=== PATIENT | female | born 1970 | race Caucasian/White ===

== ENCOUNTER 2017-03-07 07:53 | Emergency (ER) | payer OTHER ==
[~2017-03-07] VITALS: Ht 165.1 cm; Wt 93.0 kg
[~2017-03-07 07:53] MED LIST: CYCL10TA2 PO; IBUP-1060 PO; METO25TA4 PO
[2017-03-07 08:11] VITALS: BP 128/74
[2017-03-07] MEDS ORDERED: BENZ100C PO (08:18)
[2017-03-07] MEDS ORDERED: AZIT250T6 PO (08:18)
[2017-03-07] MEDS ORDERED: PROAIR HFA8.5 GM INH (08:18)
[2017-03-07] MEDS ORDERED: PRED20TA PO (08:18)
--- NOTE | 2017-03-07 08:18 | PHYS DOC ---
Past Medical History Past Medical History: Cancer, High Cholesterol, Hypertension, Other Additional Past Medical Histor: chronic back pain, bulging discs, cervical cancer Past Surgical History: Other Additional Past Surgical Histo: D&C, left breast cyst removed Alcohol Use: None Drug Use: None Adult General Chief Complaint Chief Complaint: COUGH HPI HPI Patient is a 46 year old female presents to the ED complaining of cough x 4 days. Describes as dry cough. States she started out with a sore throat and congestion. Patient is a pack a day smoker. Describes her pain as sharp. Rates her pain as 6/10. Denies chest pain, shortness of breath, dizziness, weakness, n /v, abdominal pain, headache or fever. Review of Systems Review of Systems Constitutional: Complains of subjective fever. Denies chills [] Eyes: Denies change in visual acuity, redness, or eye pain [] HENT: Complains of nasal congestion and sore throat. [] Respiratory: Complains of cough. Denies shortness of breath [] Cardiovascular: No additional information not addressed in HPI [] GI: Denies abdominal pain, nausea, vomiting, bloody stools or diarrhea [] : Denies dysuria or hematuria [] Musculoskeletal: Denies back pain or joint pain [] Integument: Denies rash or skin lesions [] Neurologic: Denies headache, focal weakness or sensory changes [] Endocrine: Denies polyuria or polydipsia [] All other systems were reviewed and found to be within normal limits, except as documented in this note. Allergies Allergies Allergies Coded Allergies Type Severity Reaction Last Updated Verified No Known Drug Allergies 03/28/14 No Physical Exam Physical Exam Constitutional: Well developed, well nourished, no acute distress, non-toxic appearance. [] HENT: Normocephalic, atraumatic, bilateral external ears normal, MILD PHARYNGEAL ERYTHEMA. oropharynx moist, no oral exudates, nose normal. [] Eyes: PERRLA, EOMI, conjunctiva normal, no discharge. [] Neck: Normal range of motion, no tenderness, supple, no stridor. [] Cardiovascular:Heart rate regular rhythm, no murmur [] Lungs & Thorax: DRY COUGH. Bilateral breath sounds clear to auscultation [] Abdomen: Bowel sounds normal, soft, no tenderness, no masses, no pulsatile masses. [] Skin: Warm, dry, no erythema, no rash. [] Back: No tenderness, no CVA tenderness. [] Extremities: No tenderness, no cyanosis, no clubbing, ROM intact, no edema. [] Neurologic: Alert and oriented X 3, normal motor function, normal sensory function, no focal deficits noted. [] Psychologic: Affect normal, judgement normal, mood normal. [] Current Patient Data Vital Signs Vital Signs Date Time Temp Pulse Resp B/P (MAP) Pulse Ox O2 Delivery O2 Flow Rate FiO2 03/07/17 08:11 98.3 74 18 98 Room Air 98.3 EKG EKG [] Radiology/Procedures Radiology/Procedures [] Course & Med Decision Making Course & Med Decision Making Pertinent Labs and Imaging studies reviewed. (See chart for details) [] Dragon Disclaimer Dragon Disclaimer This electronic medical record was generated, in whole or in part, using a voice recognition dictation system. Departure Departure Impression: Primary Impression: Cough Additional Impression: Upper respiratory infection Disposition: HOME, SELF-CARE Condition: IMPROVED Referrals: NO PCP (PCP) SHONDA LARSON MD Patient Instructions: Acute Bronchitis Scripts Benzonatate (TESSALON PERLE) 100 Mg Capsule 1 CAP PO TID, #21 CAP Prov: RUPA WILKINS 03/07/17 Albuterol Sulfate (PROAIR HFA INHALER) 8.5 Gm Hfa.aer.ad 1 PUFF INH PRN Q6HRS Y for SHORTNESS OF BREATH, #1 INHALER 0 Refills Prov: RUPA WILKINS 03/07/17 Prednisone (PREDNISONE) 20 Mg Tablet 2 TAB PO DAILY, #10 TAB Prov: RUPA WILKINS 03/07/17 Azithromycin (AZITHROMYCIN TABLET) 250 Mg Tablet 1 PKG PO UD, #6 TAB Prov: RUPA WILKINS 03/07/17 Problem Qualifiers RUPA WILKINS Mar 07, 2017 08:18
== END 2017-03-07 08:25 | disposition home or self-care (01) ==
LOC: ER 07:53
DX: J06.9 Acute upper respiratory infection, unspecified (principal); E78.00 Pure hypercholesterolemia, unspecified; I10 Essential (primary) hypertension; G89.29 Other chronic pain; F17.210 Nicotine dependence, cigarettes, uncomplicated
CPT/HCPCS: 99283

== ENCOUNTER → 2017-09-07 | Outpatient (CLI) | payer OTHER | END | disposition home or self-care (01) | LOC: KCIC 10:23 | DX: N20.1 Calculus of ureter (principal) | CPT/HCPCS: 74018 ==

== ENCOUNTER 2017-11-03 09:40 | Emergency (ER) | payer OTHER ==
[2017-11-03 09:54] LABS: URINE HCG POC HCG NEGATIVE (Negative)
[2017-11-03 10:10] LABS: ADD MAN DIFF? NO
[2017-11-03 10:15] LABS: BILIRUBIN,URINE NEGATIVE (NEG); CLARITY,URINE CLEAR; COLOR,URINE YELLOW; GLUCOSE,URINE NEGATIVE (NEG); NITRITE,URINE NEGATIVE (NEG); PROTEIN,URINE NEGATIVE (NEG-TRACE); UROBILINOGEN,URINE 0.2 mg/dL (0.2 mg/dL)
[2017-11-03] MEDS: fentaNYL PF VIAL 100 MCG/2 ML VIAL IV (10:17)
[2017-11-03] MEDS: ONDANSETRON PF 4 MG/2 ML VIAL. IV (10:18)
[2017-11-03] MEDS: IV NORMAL SALINE 1000ML BAG 1,000 ML IV (10:19)
[2017-11-03 10:26] LABS: ANION GAP 10 (6-14); BLOOD UREA NITROGEN 11 mg/dL (7-20); BUN/CREATININE RATIO 12 (6-20); CALCIUM 9.8 mg/dL (8.5-10.1); CARBON DIOXIDE 25 mmol/L (21-32); CHLORIDE 101 mmol/L (98-107); CREATININE 0.9 mg/dL (0.6-1.0); GFR 67.4; GLUCOSE 153 mg/dL (70-99); POTASSIUM 3.6 mmol/L (3.5-5.1); SODIUM 136 mmol/L (136-145)
[2017-11-03 10:32] LABS: ALBUMIN 3.8 g/dL (3.4-5.0); ALBUMIN/GLOBULIN RATIO 1.1 (1.0-1.7); ALK PHOS 95 U/L (46-116); ALT (SGPT) 21 U/L (14-59); AST (SGOT) 14 U/L (15-37); TOTAL BILIRUBIN 0.3 mg/dL (0.2-1.0); TOTAL PROTEIN 7.4 g/dL (6.4-8.2)
[2017-11-03 10:36] LABS: BACTERIA,URINE FEW /HPF (0-FEW); SQUAMOUS EPITHELIAL CELL,UR FEW /LPF
[2017-11-03 10:46] LABS: BASO # 0.1 x10^3/uL (0.0-0.2); BASO % 1 % (0-3); EOS # 0.3 x10^3/uL (0.0-0.7); EOS % 3 % (0-3); HEMATOCRIT 40.6 % (36.0-47.0); HEMOGLOBIN 13.6 g/dL (12.0-15.5); LYMPH # 2.8 x10^3/uL (1.0-4.8); LYMPH % 36 % (24-48); MEAN CORPUSCULAR HEMOGLOBIN 28 pg (25-35); MEAN CORPUSCULAR HGB CONC 34 g/dL (31-37); MEAN CORPUSCULAR VOLUME 84 fL (79-100); MONO # 0.6 x10^3/uL (0.0-1.1); MONO % 8 % (0-9); NEUT # 4.1 x10^3uL (1.8-7.7); NEUT % 52 % (31-73); PLATELET COUNT 318 x10^3/uL (140-400); RED BLOOD COUNT 4.83 x10^6/uL (3.50-5.40); RED CELL DISTRIBUTION WIDTH 14.8 % (11.5-14.5); WHITE BLOOD COUNT 7.9 x10^3/uL (4.0-11.0)
== END 2017-11-03 12:40 | disposition home or self-care (01) ==
LOC: ER 09:40
DX: N20.0 Calculus of kidney (principal); F32.9 Major depressive disorder, single episode, unspecified; E78.00 Pure hypercholesterolemia, unspecified; I10 Essential (primary) hypertension; G89.29 Other chronic pain; Z98.890 Other specified postprocedural states; Z88.2 Allergy status to sulfonamides
CPT/HCPCS: 36415; 80053; 81001; 81025; 85025; 96365; 96375; 99284; J0690; J2405; J3010; J7030

== ENCOUNTER 2017-11-16 12:10 | Day surgery (SDC) | payer OTHER ==
[~2017-11-16 12:10] MED LIST changes: +AZIT250T6 PO; +BENZ100C PO; +CHOL500062 PO; +CIPR500T94 PO; +HYDROmorphone 2 MG/ML VIAL IV PRN; +IV RINGERS,LACTATED 1000ML 1,000 ML IV SCH; +LIDOCAINE 1% PF 2 ML VIAL. ID PRN; +LOVA20TA2 PO; +MORPHINE SULFATE 2 MG/ML VIAL. IV PRN; +ONDA4TAB7 PO; +ONDANSETRON PF 4 MG/2 ML VIAL. IV PRN; +PRED20TA PO; +PROAIR HFA8.5 GM INH; +PROCHLORPERAZINE 10 MG/2 ML VIAL. IV PRN; +fentaNYL PF VIAL 100 MCG/2 ML VIAL IV PRN
[2017-11-16] MEDS ORDERED: IOHEXOL 300 MG/ML 100ML VIAL. ONE (12:18)
[2017-11-16] MEDS ORDERED: HYDR-971 PO ×2 (12:43→15:20)
[2017-11-16] MEDS ORDERED: DULO60CA6 PO (12:44)
[2017-11-16 12:55] LABS: U PREG PATIENT NEGATIVE (NEG)
[2017-11-16] MEDS ORDERED: ceFAZolin 2GM PREMIX 2 GM/50 ML BAG IV ONE (13:00)
[2017-11-16] MEDS ORDERED: PROPOFOL 20 ML IV ONE (13:22)
[2017-11-16] MEDS ORDERED: LIDOCAINE 2% PF Vial for OR 5 ML VIAL. ONE (13:22)
[2017-11-16] MEDS ORDERED: DEXAMETHASONE SOD PHOS 20 MG/5 ML VIAL. ONE (13:22)
[2017-11-16] MEDS ORDERED: ONDANSETRON PF 4 MG/2 ML VIAL. ONE (13:22)
[2017-11-16] MEDS ORDERED: FAMOTIDINE 20 MG/2 ML VIAL ONE (13:22)
[2017-11-16] MEDS ORDERED: MIDAZOLAM HCL/PF 2 MG/2 ML VIAL. ONE (13:23)
[2017-11-16] MEDS ORDERED: fentaNYL PF VIAL 100 MCG/2 ML VIAL ONE (13:23)
[2017-11-16] MEDS ORDERED: SUCCINYLCHOLINE 200 MG/10 ML VIAL. ONE (13:50)
[2017-11-16] MEDS ORDERED: ePHEDrine PF IN SALINE 50 MG/5 ML DISP.SYRIN IV ONE (14:17)
[2017-11-16] MEDS ORDERED: SEVOFLURANE 61 TO 120 MINUTES. IH ONE (14:47)
--- NOTE | 2017-11-16 15:10 | PDOC ---
BRIEF OPERATIVE NOTE Pre-Op Diagnosis left ureteral stone Post-Op Diagnosis same Procedure Performed cystoscopy, LEFT: retrograde pyelogram, ureteroscopy, laser lithotripsy, ureteral stent placement Surgeon Lili Juarez Traffic And Transport Planner None Anesthesia Type: General Blood Loss < 5 cc Specimens Obtained ureteral stone Findings as dictated Complications none Operative Note dictated LILI JUAREZ MD Nov 16, 2017 15:10
--- NOTE | 2017-11-16 15:12 | DISCH ---
DISCHARGE INSTRUCTIONS Condition on Discharge Condition on Discharge: Stable Activity After Discharge Activity Instructions for Disc: No restrictions Driving Instructions after Dis: Other, see below (Do not drive while taking narcotic pain medications) Diet after Discharge Diet after Discharge: Regular Wound Incision Care Wound/Incision Care: Other, see below (Remove your ureteral stent on Wednesday morning by pulling the string on your leg) Contacting the DRPranav sinclair [place] Call your doctor for: fevers, nausea/vomiting, bleeding, pain, trouble urinating Follow-Up Follow up with: Dr. Juarez in 3 weeks. Please call tomorrow to schedule your appointment. LILI JUAREZ MD Nov 16, 2017 15:12
[2017-11-16] MEDS: fentaNYL PF VIAL 100 MCG/2 ML VIAL IV PRN ×2 (15:31→15:45)
[2017-11-16 15:44] VITALS: BP 164/79
--- NOTE | 2017-11-16 15:57 | OP ---
DATE OF SURGERY: 11/16/2017 PREOPERATIVE DIAGNOSIS: Proximal left ureteral stone. POSTOPERATIVE DIAGNOSIS: Proximal left ureteral stone. PROCEDURE PERFORMED: 1. Cystourethroscopy. 2. Left retrograde pyelogram. 3. Left ureteroscopy with laser lithotripsy, stone basketing. 4. Left 6-Fijian x 26-cm double-J ureteral stent on a string. ANESTHESIA: General. COMPLICATIONS: None. BLOOD LOSS: Less than 5 mL. INDICATIONS FOR PROCEDURE: The patient is a 46-year-old female found to have a 9-mm proximal to mid left ureteral stone after presenting with urinary symptoms and abdominal pain. She elected for the above-mentioned procedures. DESCRIPTION OF PROCEDURE: The patient was seen in the preoperative holding area where her procedure, risks, benefits, and alternatives were reviewed in detail. Informed consent was obtained and she was brought back to the operating room and placed supine on the operating table. A timeout was called, identifying the correct patient, procedure, preoperative antibiotics and left side laterality. All members of surgical team were in agreement. General anesthesia was induced and she was repositioned into dorsal lithotomy and prepped and draped in a sterile fashion. A 21-Fijian rigid cystoscope was placed atraumatically through urethra into the bladder. No abnormalities were noted within her urethra or on cystoscopy with a 30-degree lens. Her ureteral orifices were orthotopic in position. A cone-tipped catheter was placed in the left ureteral orifice and a retrograde pyelogram was shot identifying a filling defect in the proximal third of the ureter. This was exchanged for a sensor wire, which was advanced up to the renal pelvis under fluoroscopy. The bladder was emptied and the scope was removed. Alongside the wire, a semirigid ureteroscope was placed and advanced up to where the stone in question was identified. It appeared quite impacted and was very edematous. Using a holmium laser, stone was dusted. Larger fragments were then basketed out. We then advanced the scope all the way up to the ureteropelvic junction and did not identify any large remaining stone fragments or trauma within the ureter on looking the scope out. The cystoscope was reintroduced and the bladder was reinspected. No trauma was noted. Stone fragments were then evacuated and the bladder was emptied. Scope was looked out under direct vision. Using fluoroscopic guidance, a 6-Fijian x 26-cm double-J ureteral stent on a string was placed. Good proximal and distal curls were noted within the renal pelvis and bladder respectively. All images were saved into PACS. The string was then tegadermed to her inner thigh and she was awoken and transferred to the PACU in stable condition with plans for stent removal on Wednesday and outpatient followup in approximately 3 weeks to review stone analysis and prevention. LILI JUAREZ MD DR: RONIT/nts JOB#: [id number] / [id number]
== END 2017-11-16 16:26 | disposition home or self-care (01) ==
LOC: SURG 12:10
PROVIDERS: ATTEND Urology
DX: N20.1 Calculus of ureter (principal); I10 Essential (primary) hypertension; F32.9 Major depressive disorder, single episode, unspecified; G89.29 Other chronic pain; F17.210 Nicotine dependence, cigarettes, uncomplicated; F41.9 Anxiety disorder, unspecified; J45.909 Unspecified asthma, uncomplicated; E78.00 Pure hypercholesterolemia, unspecified; Z98.890 Other specified postprocedural states; Z79.899 Other long term (current) drug therapy; Z88.2 Allergy status to sulfonamides; Z85.41 Personal history of malignant neoplasm of cervix uteri
CPT/HCPCS: 52356; 74420; 81025; C1769; C2617; J0330; J0690; J2001; J2250; J2405; J2704; J3010; Q9967; S0028; A7015; J1100

== ENCOUNTER 2017-11-21 19:35 | Emergency (ER) | payer OTHER ==
[~2017-11-21] VITALS: Ht 165.1 cm; Wt 95.3 kg
[~2017-11-21 19:35] MED LIST changes: +DULO60CA6 PO; +HYDR-971 PO; -HYDROmorphone 2 MG/ML VIAL IV PRN; -IV RINGERS,LACTATED 1000ML 1,000 ML IV SCH; -LIDOCAINE 1% PF 2 ML VIAL. ID PRN; -MORPHINE SULFATE 2 MG/ML VIAL. IV PRN; -ONDANSETRON PF 4 MG/2 ML VIAL. IV PRN; -PROCHLORPERAZINE 10 MG/2 ML VIAL. IV PRN; -fentaNYL PF VIAL 100 MCG/2 ML VIAL IV PRN
[2017-11-21 19:50] VITALS: BP 175/86
[2017-11-21] MEDS ORDERED: oxyCODONE/APAP 5/325 1 TAB TABLET PO ONE (20:00)
[2017-11-21 20:05] LABS: BASO # 0.1 x10^3/uL (0.0-0.2); BASO % 1 % (0-3); EOS # 0.3 x10^3/uL (0.0-0.7); EOS % 3 % (0-3); HEMATOCRIT 40.9 % (36.0-47.0); HEMOGLOBIN 13.7 g/dL (12.0-15.5); LYMPH # 2.7 x10^3/uL (1.0-4.8); LYMPH % 28 % (24-48); MEAN CORPUSCULAR HEMOGLOBIN 28 pg (25-35); MEAN CORPUSCULAR HGB CONC 33 g/dL (31-37); MEAN CORPUSCULAR VOLUME 84 fL (79-100); MONO # 0.8 x10^3/uL (0.0-1.1); MONO % 9 % (0-9); NEUT # 5.6 x10^3uL (1.8-7.7); NEUT % 59 % (31-73); PLATELET COUNT 401 x10^3/uL (140-400); RED CELL DISTRIBUTION WIDTH 14.3 % (11.5-14.5); WHITE BLOOD COUNT 9.6 x10^3/uL (4.0-11.0)
[2017-11-21] MEDS ORDERED: OXYC-323 PO (21:12)
--- NOTE | 2017-11-21 21:13 | PHYS DOC ---
Past Medical History Past Medical History: Cancer, Depression, Fibromyalgia, High Cholesterol, Hypertension, Other Additional Past Medical Histor: chronic back pain, bulging discs, cervical cancer, vitamin D deficient Past Surgical History: Other Additional Past Surgical Histo: D&C, left breast cyst removed Alcohol Use: Occasionally Drug Use: None Adult General Chief Complaint Chief Complaint: POST-OP PROBLEM HPI HPI Patient is a 46 year old female who presents with pain after pulling out her ureteral stent this evening. The patient had a double J stent placed on . She was scheduled to remove the stent today herself by pulling the string. She states that she has Tramadol at home and was taking the medication as prescribed. She states that the pain that started as soon as she pulled out the stent was unbearable. She states the tramadol is not helping control the pain at all. He denies fevers, vomiting or diarrhea. Review of Systems Review of Systems Constitutional: Denies fever or chills [] Eyes: Denies change in visual acuity, redness, or eye pain [] HENT: Denies nasal congestion or sore throat [] Respiratory: Denies cough or shortness of breath [] Cardiovascular: No additional information not addressed in HPI [] GI: Denies abdominal pain, nausea, vomiting, bloody stools or diarrhea [] : See history of present illness Musculoskeletal: Denies back pain or joint pain [] Integument: Denies rash or skin lesions [] Neurologic: Denies headache, focal weakness or sensory changes [] Endocrine: Denies polyuria or polydipsia [] All other systems were reviewed and found to be within normal limits, except as documented in this note. Current Medications Current Medications Current Medications Medications (Trade) Dose Ordered Sig/Charlotte Start Time Stop Time Status Last Admin Dose Admin Oxycodone/ Acetaminophen (Percocet 5/325) 1 tab 1X ONCE 11/21/17 20:00 11/21/17 20:01 DC 11/21/17 20:23 1 TAB Allergies Allergies Allergies Coded Allergies Type Severity Reaction Last Updated Verified Sulfa (Sulfonamide Antibiotics) Allergy Unknown 11/16/17 Yes Physical Exam Physical Exam Constitutional: Well developed, well nourished, no acute distress, non-toxic appearance. [] Cardiovascular:Heart rate regular rhythm, no murmur [] Lungs & Thorax: Bilateral breath sounds clear to auscultation [] Abdomen: Bowel sounds normal, soft, no tenderness, no masses, no pulsatile masses. [] Skin: Warm, dry, no erythema, no rash. [] Back: Left CVA tenderness Extremities: No tenderness, no cyanosis, no clubbing, ROM intact, no edema. [] Neurologic: Alert and oriented X 3, normal motor function, normal sensory function, no focal deficits noted. [] Psychologic: Affect normal, judgement normal, mood normal. [] Current Patient Data Vital Signs Vital Signs Date Time Temp Pulse Resp B/P (MAP) Pulse Ox O2 Delivery O2 Flow Rate FiO2 11/21/17 19:50 98.1 79 18 175/86 (115) 97 Room Air 98.1 Lab Values Laboratory Tests Test 11/21/17 19:55 White Blood Count 9.6 x10^3/uL (4.0-11.0) Red Blood Count 4.90 x10^6/uL (3.50-5.40) Hemoglobin 13.7 g/dL (12.0-15.5) Hematocrit 40.9 % (36.0-47.0) Mean Corpuscular Volume 84 fL (79-100) Mean Corpuscular Hemoglobin 28 pg (25-35) Mean Corpuscular Hemoglobin Concent 33 g/dL (31-37) Red Cell Distribution Width 14.3 % (11.5-14.5) Platelet Count 401 x10^3/uL (140-400) H Neutrophils (%) (Auto) 59 % (31-73) Lymphocytes (%) (Auto) 28 % (24-48) Monocytes (%) (Auto) 9 % (0-9) Eosinophils (%) (Auto) 3 % (0-3) Basophils (%) (Auto) 1 % (0-3) Neutrophils # (Auto) 5.6 x10^3uL (1.8-7.7) Lymphocytes # (Auto) 2.7 x10^3/uL (1.0-4.8) Monocytes # (Auto) 0.8 x10^3/uL (0.0-1.1) Eosinophils # (Auto) 0.3 x10^3/uL (0.0-0.7) Basophils # (Auto) 0.1 x10^3/uL (0.0-0.2) Laboratory Tests 11/21/17 19:55 EKG EKG [] Radiology/Procedures Radiology/Procedures [] Course & Med Decision Making Course & Med Decision Making Pertinent Labs and Imaging studies reviewed. (See chart for details) []The patient was given Percocet in the emergency department for pain control. She states that this has helped relieve her pain considerably. She had a negative white count here. Rosa Bustillos, DOYLE with urology, was consulted in the care of this patient. Dragon Disclaimer Dragon Disclaimer This electronic medical record was generated, in whole or in part, using a voice recognition dictation system. Departure Departure Impression: Primary Impression: Ureter pain Disposition: HOME, SELF-CARE Condition: STABLE Referrals: UNKNOWN PCP NAME (PCP) Patient Instructions: Ureteral Stent Additional Instructions: Take the medication as directed. Continue your postop instructions from Dr. Hickey. Do not drive or operate heavy machinery while taking the pain medication. If worsening return to the emergency department. Scripts Oxycodone/Apap 5-325 (PERCOCET 5-325 MG TABLET) 1 Each Tablet 1 TAB PO PRN Q6HRS PRN for PAIN, #20 TAB 0 Refills Prov: BRISSA PAUL APRN 11/21/17 BRISSA PAUL APRN Nov 21, 2017 21:13
== END 2017-11-21 21:22 | disposition home or self-care (01) ==
LOC: ER 19:35
DX: G89.18 Other acute postprocedural pain (principal); N23 Unspecified renal colic; F32.9 Major depressive disorder, single episode, unspecified; E78.00 Pure hypercholesterolemia, unspecified; I10 Essential (primary) hypertension; G89.29 Other chronic pain; Z88.2 Allergy status to sulfonamides
CPT/HCPCS: 36415; 85025; 99283

== ENCOUNTER 2018-01-26 04:44 | Inpatient (IN) | payer OTHER ==
[~2018-01-26] VITALS: Ht 165.1 cm; Wt 96.6 kg
[~2018-01-26 04:44] MED LIST changes: +OXYC-323 PO
[2018-01-26 05:23] LABS: BASO # 0.1 x10^3/uL (0.0-0.2); BASO % 1 % (0-3); EOS # 0.3 x10^3/uL (0.0-0.7); EOS % 4 % (0-3); HEMATOCRIT 39.1 % (36.0-47.0); HEMOGLOBIN 12.9 g/dL (12.0-15.5); LYMPH % 36 % (24-48); MEAN CORPUSCULAR HEMOGLOBIN 28 pg (25-35); MEAN CORPUSCULAR HGB CONC 33 g/dL (31-37); MEAN CORPUSCULAR VOLUME 83 fL (79-100); MONO # 0.7 x10^3/uL (0.0-1.1); MONO % 9 % (0-9); NEUT # 4.2 x10^3uL (1.8-7.7); NEUT % 51 % (31-73); PLATELET COUNT 283 x10^3/uL (140-400); RED BLOOD COUNT 4.68 x10^6/uL (3.50-5.40); RED CELL DISTRIBUTION WIDTH 14.8 % (11.5-14.5); WHITE BLOOD COUNT 8.2 x10^3/uL (4.0-11.0)
[2018-01-26] MEDS ORDERED: fentaNYL PF VIAL 100 MCG/2 ML VIAL IV ONE (05:30)
[2018-01-26] MEDS ORDERED: ONDANSETRON PF 4 MG/2 ML VIAL. IV ONE (05:30)
[2018-01-26] MEDS ORDERED: KETOROLAC 15 MG/ML VIAL. IV ONE (05:30)
[2018-01-26 05:45] LABS: CREATININE 0.9 mg/dL (0.6-1.0); GFR 67.1; POTASSIUM 3.8 mmol/L (3.5-5.1)
--- NOTE | 2018-01-26 05:45 | PHYS DOC ---
Past Medical History Past Medical History: Cancer, Depression, Fibromyalgia, High Cholesterol, Hypertension, Kidney Infection, Kidney Stone, Other Additional Past Medical Histor: chronic back pain, bulging discs, cervical cancer, vitamin D deficient Past Surgical History: Other Additional Past Surgical Histo: D&C, left breast cyst removed,LITHOTRIPSY 2017 Alcohol Use: Occasionally Drug Use: None Adult General Chief Complaint Chief Complaint: FLANK PAIN HPI HPI Patient is a 47 year old female with sudden onset right low back pain woke her up from sleep tonight history of kidney stone. I sharp severe radiates to abdomen. No fever no vomiting positive nausea Patient is not . Has not yet tried anything for relief Review of Systems Review of Systems Constitutional: Denies fever or chills [] Eyes: Denies change in visual acuity, redness, or eye pain [] HENT: Denies nasal congestion or sore throat [] Respiratory: Denies cough or shortness of breath [] Cardiovascular: No additional information not addressed in HPI [] GI: POSITIVE FOR FLANK PAIN : Hematuria noted Musculoskeletal: Integument: Denies rash or skin lesions [] Neurologic: Denies headache, focal weakness or sensory changes [] Endocrine: Denies polyuria or polydipsia [] All other systems were reviewed and found to be within normal limits, except as documented in this note. Current Medications Current Medications Current Medications Medications (Trade) Dose Ordered Sig/Charlotte Start Time Stop Time Status Last Admin Dose Admin Fentanyl Citrate (Fentanyl 2ml Vial) 50 mcg 1X ONCE 01/26/18 05:30 01/26/18 05:31 DC 01/26/18 05:36 50 MCG Ketorolac Tromethamine (Toradol 15mg Vial) 15 mg 1X ONCE 01/26/18 05:30 01/26/18 05:31 DC 01/26/18 05:34 15 MG Ondansetron HCl (Zofran) 4 mg 1X ONCE 01/26/18 05:30 01/26/18 05:31 DC 01/26/18 05:33 4 MG Sodium Chloride 1,000 ml @ 1,000 mls/hr 1X ONCE 01/26/18 06:00 01/26/18 06:59 DC 01/26/18 05:38 1,000 MLS/HR Allergies Allergies Allergies Coded Allergies Type Severity Reaction Last Updated Verified Sulfa (Sulfonamide Antibiotics) Allergy Intermediate 01/26/18 Yes Physical Exam Physical Exam Constitutional: Well developed, well nourished, no acute distress, non-toxic appearance. [] HENT: Normocephalic, atraumatic, bilateral external ears normal, oropharynx moist, no oral exudates, nose normal. [] Eyes: PERRLA, EOMI, conjunctiva normal, no discharge. [] Neck: Normal range of motion, no tenderness, supple, no stridor. [] Pulmonary: Normal respiratory effort no increased work of breathing no obvious chest wall trauma Abdomen: Bowel sounds normal, soft, no tenderness, no masses, no pulsatile masses. [] Skin: Warm, dry, no erythema, no rash. [] Back: No tenderness, right-sided CVA tenderness noted Extremities: No tenderness, no cyanosis, no clubbing, ROM intact, no edema. [] Neurologic: Alert and oriented X 3, normal motor function, normal sensory function, no focal deficits noted. [] Psychologic: Affect normal, judgement normal, mood normal. [] Current Patient Data Vital Signs Vital Signs Date Time Temp Pulse Resp B/P (MAP) Pulse Ox O2 Delivery O2 Flow Rate FiO2 01/26/18 07:30 70 20 156/71 (99) 98 Room Air 01/26/18 04:55 97.8 97.8 Lab Values Laboratory Tests Test 01/26/18 05:04 01/26/18 05:20 01/26/18 07:30 White Blood Count 8.2 x10^3/uL (4.0-11.0) Red Blood Count 4.68 x10^6/uL (3.50-5.40) Hemoglobin 12.9 g/dL (12.0-15.5) Hematocrit 39.1 % (36.0-47.0) Mean Corpuscular Volume 83 fL (79-100) Mean Corpuscular Hemoglobin 28 pg (25-35) Mean Corpuscular Hemoglobin Concent 33 g/dL (31-37) Red Cell Distribution Width 14.8 % (11.5-14.5) H Platelet Count 283 x10^3/uL (140-400) Neutrophils (%) (Auto) 51 % (31-73) Lymphocytes (%) (Auto) 36 % (24-48) Monocytes (%) (Auto) 9 % (0-9) Eosinophils (%) (Auto) 4 % (0-3) H Basophils (%) (Auto) 1 % (0-3) Neutrophils # (Auto) 4.2 x10^3uL (1.8-7.7) Lymphocytes # (Auto) 3.0 x10^3/uL (1.0-4.8) Monocytes # (Auto) 0.7 x10^3/uL (0.0-1.1) Eosinophils # (Auto) 0.3 x10^3/uL (0.0-0.7) Basophils # (Auto) 0.1 x10^3/uL (0.0-0.2) Sodium Level 142 mmol/L (136-145) Potassium Level 3.8 mmol/L (3.5-5.1) Chloride Level 106 mmol/L (98-107) Carbon Dioxide Level 26 mmol/L (21-32) Anion Gap 10 (6-14) Blood Urea Nitrogen 13 mg/dL (7-20) Creatinine 0.9 mg/dL (0.6-1.0) Estimated GFR (Cockcroft-Gault) 67.1 BUN/Creatinine Ratio 14 (6-20) Glucose Level 96 mg/dL (70-99) Calcium Level 10.0 mg/dL (8.5-10.1) Total Bilirubin 0.2 mg/dL (0.2-1.0) Aspartate Amino Transferase (AST) 13 U/L (15-37) L Alanine Aminotransferase (ALT) 18 U/L (14-59) Alkaline Phosphatase 89 U/L (46-116) Total Protein 7.3 g/dL (6.4-8.2) Albumin 3.7 g/dL (3.4-5.0) Albumin/Globulin Ratio 1.0 (1.0-1.7) POC Urine HCG, Qualitative Hcg negative (Negative) Urine Collection Type Unknown Urine Color Yellow Urine Clarity Clear Urine pH 5.5 Urine Specific [place] 1.015 Urine Protein Negative mg/dL (NEG-TRACE) Urine Glucose (UA) Negative mg/dL (NEG) Urine Ketones (Stick) Negative mg/dL (NEG) Urine Blood Large (NEG) Urine Nitrite Negative (NEG) Urine Bilirubin Negative (NEG) Urine Urobilinogen Dipstick 0.2 mg/dL (0.2 mg/dL) Urine Leukocyte Esterase Trace (NEG) Urine RBC 20-40 /HPF (0-2) Urine WBC Rare /HPF (0-4) Urine Bacteria 0 /HPF (0-FEW) Laboratory Tests 01/26/18 05:04 Laboratory Tests 01/26/18 05:04 EKG EKG [] Radiology/Procedures Radiology/Procedures [[facility] [address] [place] [address] IMAGING REPORT Signed PATIENT: MARSHA TRIVEDI ACCOUNT: [id number] : 1970 LOCATION: ER AGE: 47 SEX: F EXAM STATUS: REG ER ORD. PHYSICIAN: JAE ORDOÑEZ MD REASON: right flank pain. hx renal colic in past;waiting on preg@5:33 PROCEDURE: CT ABDOMEN PELVIS WO CONTRAST Abdominal and Pelvis CT, Without Contrast: History: Right flank pain. Comparison: None. Procedure: Axial images are obtained of the abdomen and pelvis, without IV or oral contrast. CT Abdomen without Contrast: Findings: Evaluation of solid organs is limited without contrast. Evaluation of stomach and bowel is limited without oral contrast. Liver: Normal. Spleen: Normal. Pancreas: Normal. Adrenal Glands: Normal. Kidneys: There is an 8 mm stone right UPJ with moderate right hydronephrosis. There is a 5 mm nonobstructive stone in the left renal pelvis. There is no free air or free fluid. There is no lymphadenopathy. Impression: Please see CT Pelvis without Contrast. End Impression. CT Pelvis without Contrast: Findings: The urinary bladder appears normal. There is no free fluid. There is no lymphadenopathy. There is no pericolonic inflammation identified. The appendix is normal. Impression: 8 mm stone right UPJ with moderate hydronephrosis. End impression PQRS Compliance Statement: One or more of the following individualized dose reduction techniques were utilized for this examination: 1. Automated exposure control 2. Adjustment of the mA and/or kV according to patient size 3. Use of iterative reconstruction technique Electronically signed by: Shannan Pleitez III, MD (01/26/2018 6:59 AM) [facility] DICTATED and SIGNED BY: SHANNAN PLEITEZ III, MD DATE: 01/26/18 0655 ] Course & Med Decision Making Course & Med Decision Making Pertinent Labs and Imaging studies reviewed. (See chart for details) []Renal colic history of stent removal back in October on the left side this is no acute right-sided flank pain. No CT scan at our system so we will proceed with usual workup including CT scan pain control fluids and go from there. Care will be sent over to Dr. durant at 6 am pending completion of workup. Dragon Disclaimer Dragon Disclaimer This electronic medical record was generated, in whole or in part, using a voice recognition dictation system. Departure Departure Impression: Primary Impression: Kidney stones Disposition: ADMITTED INPATIENT Admitting Physician: Luis E Chi Condition: STABLE Referrals: NO PCP (PCP) JAE ORDOÑEZ MD Jan 26, 2018 05:45 NIA DURANT DO Jan 26, 2018 07:39
[2018-01-26 05:50] LABS: ALBUMIN 3.7 g/dL (3.4-5.0); TOTAL BILIRUBIN 0.2 mg/dL (0.2-1.0); TOTAL PROTEIN 7.3 g/dL (6.4-8.2)
[2018-01-26] MEDS ORDERED: IV NORMAL SALINE 1000ML BAG 1,000 ML IV ONE (06:00)
--- NOTE | 2018-01-26 07:02 | RAD ---
Abdominal and Pelvis CT, Without Contrast: History: Right flank pain. Comparison: None. Procedure: Axial images are obtained of the abdomen and pelvis, without IV or oral contrast. CT Abdomen without Contrast: Findings: Evaluation of solid organs is limited without contrast. Evaluation of stomach and bowel is limited without oral contrast. Liver: Normal. Spleen: Normal. Pancreas: Normal. Adrenal Glands: Normal. Kidneys: There is an 8 mm stone right UPJ with moderate right hydronephrosis. There is a 5 mm nonobstructive stone in the left renal pelvis. There is no free air or free fluid. There is no lymphadenopathy. Impression: Please see CT Pelvis without Contrast. End Impression. CT Pelvis without Contrast: Findings: The urinary bladder appears normal. There is no free fluid. There is no lymphadenopathy. There is no pericolonic inflammation identified. The appendix is normal. Impression: 8 mm stone right UPJ with moderate hydronephrosis. End impression PQRS Compliance Statement: One or more of the following individualized dose reduction techniques were utilized for this examination: 1. Automated exposure control 2. Adjustment of the mA and/or kV according to patient size 3. Use of iterative reconstruction technique Electronically signed by: Robbin Shea III, MD (01/26/2018 6:59 AM) [facility]
[2018-01-26] MEDS ORDERED: MORPHINE SULFATE 10 MG/ML VIAL. IV ONE (07:45)
[2018-01-26 07:53] LABS: BILIRUBIN,URINE NEGATIVE (NEG); CLARITY,URINE CLEAR; COLOR,URINE YELLOW; NITRITE,URINE NEGATIVE (NEG); PH,URINE 5.5; PROTEIN,URINE NEGATIVE (NEG-TRACE); UROBILINOGEN,URINE 0.2 mg/dL (0.2 mg/dL)
[2018-01-26] MEDS ORDERED: ONDANSETRON PF 4 MG/2 ML VIAL. IV PRN (08:00)
[2018-01-26 08:05] LABS: BACTERIA,URINE 0 /HPF (0-FEW); RBC,URINE 20-40 /HPF (0-2); WBC,URINE RARE /HPF (0-4)
--- NOTE | 2018-01-26 09:58 | PDOC2 ---
JOSE R HAWKINS Jluis DISPUTE RESOLUTION ANALYST 01/26/18 0958: UROLOGY CONSULT Date of Consult Date of Consult DATE: 01/26/18 TIME: 09:50 Identification/Chief Complaint Chief Complaint 8mm right UPJ stone with moderate hydronephrosis. 5 mm non obstructive stone in the left renal pelvis. Source Source: Caregiver, Chart review, Patient History of Present Illness Reason for Visit: This 47 year old female is known to us and is a patient of Dr. Hickey. She did receive follow up surgical care from him on November 24 and after the procedure was told everything went well and that the remaining stones in her kidney should "pass on their own." She has seen a few stones come out since then and was actually feeling quite well until last night. She was supposed to receive another CT ABD/PELVIS toward the end of December. However, her insurance did not approve and so this fell through. She was scheduled to follow up with him in one year. She developed nausea dn severe pain in her right CVA area and midback and came into [facility] ER for this reason. A CT scan was done and this is when the two kidney stones were found. Presently, her pain is well controlled. Her nausea has also subsided completely and she would like to eat. She prefers not to do a surgery today unless absolutely necessary. Past Surgical History Past Surgical History: Other (Stent placement and URS ) Social History 1 pack per day Current Problem List Problems: (1) Calculus of ureter (2) Kidney stones Current Medications Current Medications Current Medications Fentanyl Citrate (Fentanyl 2ml Vial) 50 mcg 1X ONCE IV Last administered on at 05:36; Start 01/26/18 at 05:30; Stop 01/26/18 at 05:31; Status DC Ketorolac Tromethamine (Toradol 15mg Vial) 15 mg 1X ONCE IV Last administered on 01/26/18at 05:34; Start 01/26/18 at 05:30; Stop 01/26/18 at 05:31; Status DC Morphine Sulfate (Morphine Sulfate) 4 mg PRN Q2HR PRN IV PAIN; Start 01/26/18 at 08:00; Stop 01/27/18 at 07:59 Morphine Sulfate (Morphine Sulfate) 5 mg 1X ONCE IV Last administered on 01/26at 07:57; Start 01/26/18 at 07:45; Stop 01/26/18 at 07:46; Status DC Ondansetron HCl (Zofran) 4 mg 1X ONCE IV Last administered on 01/26/18at 05:33 ; Start 01/26/18 at 05:30; Stop 01/26/18 at 05:31; Status DC Ondansetron HCl (Zofran) 4 mg PRN Q8HRS PRN IV NAUSEA/VOMITING; Start at 08:00; Stop 01/27/18 at 07:59 Sodium Chloride 1,000 ml @ 1,000 mls/hr 1X ONCE IV Last administered on 01/26at 05:38; Start 01/26/18 at 06:00; Stop 01/26/18 at 06:59; Status DC Allergies Allergies: Coded Allergies: Sulfa (Sulfonamide Antibiotics) (Verified Allergy, Intermediate, 01/26/18) ROS Review Of Systems: CONSTITUTIONAL: No fever or chills EYES: No recent changes SKIN: No rash or itching CARDIOVASCULAR: No chest pain, syncope, palpitations, or edema RESPIRATORY: No SOB or cough GASTROINTESTINAL: No nausea, vomiting or abdominal pain NEUROLOGICAL: No headaches or weakness ENDOCRINE: No cold or heat intolerance GENITOURINARY: No urgency or frequency of urination MUSCULOSKELETAL: + back pain, no joint pain LYMPHATICS: No enlarged lymph nodes PSYCHIATRIC: No anxiety or depression Physical Exam Physical Exam: General: Pleasant, no acute distress, well groomed Eyes: conjunctiva anicteric, eyes full range of motion ENT: moist oral mucosa, normal dentition Neck: Trachea midline, no masses Respiratory: unlabored breathing, not using accessory muscles, Back: Bilateral CVA pain. Right side worse on left with testing. Abdomen: soft, obese, nontender, nondistended, no hepatosplenomegaly, no masses Vitals VITALS Vital Signs Date Time Temp Pulse Resp B/P (MAP) Pulse Ox O2 Delivery O2 Flow Rate FiO2 01/26/18 08:30 66 18 134/63 (86) 94 Room Air 01/26/18 04:55 97.8 97.8 Labs Labs Laboratory Tests Test 01/26/18 05:04 01/26/18 05:20 01/26/18 07:30 White Blood Count 8.2 x10^3/uL (4.0-11.0) Red Blood Count 4.68 x10^6/uL (3.50-5.40) Hemoglobin 12.9 g/dL (12.0-15.5) Hematocrit 39.1 % (36.0-47.0) Mean Corpuscular Volume 83 fL (79-100) Mean Corpuscular Hemoglobin 28 pg (25-35) Mean Corpuscular Hemoglobin Concent 33 g/dL (31-37) Red Cell Distribution Width 14.8 % (11.5-14.5) Platelet Count 283 x10^3/uL (140-400) Neutrophils (%) (Auto) 51 % (31-73) Lymphocytes (%) (Auto) 36 % (24-48) Monocytes (%) (Auto) 9 % (0-9) Eosinophils (%) (Auto) 4 % (0-3) Basophils (%) (Auto) 1 % (0-3) Neutrophils # (Auto) 4.2 x10^3uL (1.8-7.7) Lymphocytes # (Auto) 3.0 x10^3/uL (1.0-4.8) Monocytes # (Auto) 0.7 x10^3/uL (0.0-1.1) Eosinophils # (Auto) 0.3 x10^3/uL (0.0-0.7) Basophils # (Auto) 0.1 x10^3/uL (0.0-0.2) Sodium Level 142 mmol/L (136-145) Potassium Level 3.8 mmol/L (3.5-5.1) Chloride Level 106 mmol/L (98-107) Carbon Dioxide Level 26 mmol/L (21-32) Anion Gap 10 (6-14) Blood Urea Nitrogen 13 mg/dL (7-20) Creatinine 0.9 mg/dL (0.6-1.0) Estimated GFR (Cockcroft-Gault) 67.1 BUN/Creatinine Ratio 14 (6-20) Glucose Level 96 mg/dL (70-99) Calcium Level 10.0 mg/dL (8.5-10.1) Total Bilirubin 0.2 mg/dL (0.2-1.0) Aspartate Amino Transf (AST/SGOT) 13 U/L (15-37) Alanine Aminotransferase (ALT/SGPT) 18 U/L (14-59) Alkaline Phosphatase 89 U/L (46-116) Total Protein 7.3 g/dL (6.4-8.2) Albumin 3.7 g/dL (3.4-5.0) Albumin/Globulin Ratio 1.0 (1.0-1.7) Bedside Urine HCG, Qualitative Hcg negative (Negative) Urine Collection Type Unknown Urine Color Yellow Urine Clarity Clear Urine pH 5.5 Urine Specific [place] 1.015 Urine Protein Negative mg/dL (NEG-TRACE) Urine Glucose (UA) Negative mg/dL (NEG) Urine Ketones (Stick) Negative mg/dL (NEG) Urine Blood Large (NEG) Urine Nitrite Negative (NEG) Urine Bilirubin Negative (NEG) Urine Urobilinogen Dipstick 0.2 mg/dL (0.2 mg/dL) Urine Leukocyte Esterase Trace (NEG) Urine RBC 20-40 /HPF (0-2) Urine WBC Rare /HPF (0-4) Urine Bacteria 0 /HPF (0-FEW) Laboratory Tests Test 01/26/18 05:04 01/26/18 05:20 01/26/18 07:30 White Blood Count 8.2 x10^3/uL (4.0-11.0) Red Blood Count 4.68 x10^6/uL (3.50-5.40) Hemoglobin 12.9 g/dL (12.0-15.5) Hematocrit 39.1 % (36.0-47.0) Mean Corpuscular Volume 83 fL (79-100) Mean Corpuscular Hemoglobin 28 pg (25-35) Mean Corpuscular Hemoglobin Concent 33 g/dL (31-37) Red Cell Distribution Width 14.8 % (11.5-14.5) Platelet Count 283 x10^3/uL (140-400) Neutrophils (%) (Auto) 51 % (31-73) Lymphocytes (%) (Auto) 36 % (24-48) Monocytes (%) (Auto) 9 % (0-9) Eosinophils (%) (Auto) 4 % (0-3) Basophils (%) (Auto) 1 % (0-3) Neutrophils # (Auto) 4.2 x10^3uL (1.8-7.7) Lymphocytes # (Auto) 3.0 x10^3/uL (1.0-4.8) Monocytes # (Auto) 0.7 x10^3/uL (0.0-1.1) Eosinophils # (Auto) 0.3 x10^3/uL (0.0-0.7) Basophils # (Auto) 0.1 x10^3/uL (0.0-0.2) Sodium Level 142 mmol/L (136-145) Potassium Level 3.8 mmol/L (3.5-5.1) Chloride Level 106 mmol/L (98-107) Carbon Dioxide Level 26 mmol/L (21-32) Anion Gap 10 (6-14) Blood Urea Nitrogen 13 mg/dL (7-20) Creatinine 0.9 mg/dL (0.6-1.0) Estimated GFR (Cockcroft-Gault) 67.1 BUN/Creatinine Ratio 14 (6-20) Glucose Level 96 mg/dL (70-99) Calcium Level 10.0 mg/dL (8.5-10.1) Total Bilirubin 0.2 mg/dL (0.2-1.0) Aspartate Amino Transf (AST/SGOT) 13 U/L (15-37) Alanine Aminotransferase (ALT/SGPT) 18 U/L (14-59) Alkaline Phosphatase 89 U/L (46-116) Total Protein 7.3 g/dL (6.4-8.2) Albumin 3.7 g/dL (3.4-5.0) Albumin/Globulin Ratio 1.0 (1.0-1.7) Bedside Urine HCG, Qualitative Hcg negative (Negative) Urine Collection Type Unknown Urine Color Yellow Urine Clarity Clear Urine pH 5.5 Urine Specific [place] 1.015 Urine Protein Negative mg/dL (NEG-TRACE) Urine Glucose (UA) Negative mg/dL (NEG) Urine Ketones (Stick) Negative mg/dL (NEG) Urine Blood Large (NEG) Urine Nitrite Negative (NEG) Urine Bilirubin Negative (NEG) Urine Urobilinogen Dipstick 0.2 mg/dL (0.2 mg/dL) Urine Leukocyte Esterase Trace (NEG) Urine RBC 20-40 /HPF (0-2) Urine WBC Rare /HPF (0-4) Urine Bacteria 0 /HPF (0-FEW) Images Images The urinary bladder appears normal. There is no free fluid. There is no lymphadenopathy. There is no pericolonic inflammation identified. The appendix is normal. Impression: 8 mm stone right UPJ with moderate hydronephrosis. Assessment/Plan Assessment/Plan 8 mm right UPJ stone with moderate hydro, not infected and 5 mm nonobstructive stone in the left renal pelvis=Pt feeling much better after medication. WBC/ Kidney function WNL, afebrile, Urine low suspicion for infection (trace leuks, neg nitrite, no bacteria) Prefers not to have surgery today if possible. May eat today, NPO at midnight. Nicotine patch. Flomax. Strain urine. KUB in the am at 0600 to check stone. Recommend IVF when blood pressure is under control. Will re-evaluate in the am. Discussed with patient that if pain remains under control she can go home tomorrow morning. If not, we may proceed with a surgery. ESWL Wednesday with Dr. Mao is also an option. LEIDA MAO MD 01/26/18 1415: UROLOGY CONSULT Assessment/Plan Assessment/Plan 7-8mm right UU stone, mild hydro. ua with no bacteria. Wants to proceed with SSP. KUB is ok to monitor interval stone migration and opacity if candidate for ESWL. JOSE R HAWKINS APRN Jan 26, 2018 09:58 LEIDA MAO MD Jan 26, 2018 14:15
[2018-01-26] MEDS: TAMSULOSIN 0.4 MG CAP.ER.24H. PO SCH (10:25)
[2018-01-26] MEDS: NICOTINE 21MG PATCH. TD SCH (10:26)
[2018-01-26 11:00] VITALS: BP 150/77
[2018-01-26] MEDS ORDERED: ALBUTEROL SULFATE 2.5 MG/3 ML NEBU. NEB PRN (12:45)
[2018-01-26] MEDS: DULoxetine HCL 30 MG CAPSULE.DR PO SCH (13:03)
[2018-01-26] MEDS: METOPROLOL TART IMMED RELEASE 25 MG TABLET. PO SCH ×2 (13:03→20:40)
[2018-01-26] MEDS: MORPHINE SULFATE 4 MG/ML VIAL. IV PRN (14:06)
[2018-01-26 15:00] VITALS: BP 131/76
[2018-01-26] MEDS: IV NORMAL SALINE 1000ML BAG 1,000 ML IV SCH (15:27)
[2018-01-26 19:00] VITALS: BP 126/63
--- NOTE | 2018-01-26 19:41 | HP ---
ADMIT DATE: 01/26/2018 CHIEF COMPLAINT: Flank pain. HISTORY OF PRESENT ILLNESS: The patient is a pleasant 47-year-old female with a history of kidney stones. She presents with flank pain and indeed we checked imaging. She has got another kidney stone with some hydronephrosis. Rates her pain at 9/10, worse with food, describes as agonizing. She tried increasing her home meds, but that did not work. We are going to admit the patient and consult Genitourinary Medicine. They have already seen her as well. PAST MEDICAL HISTORY: Renal stones, depression, fibromyalgia, hyperlipidemia, kidney infection, bulging disk, cervical cancer, vitamin D deficiency, chronic pain, D&C, left breast cyst, lithotripsy, previous cystoscopy. ALLERGIES: None. FAMILY HISTORY: Renal stones and hypertension. SOCIAL HISTORY: She does not drink, smoke or take drugs. MEDICATIONS: Reviewed, please refer to the MRAD. REVIEW OF SYSTEMS: GENERAL: No history of weight change, weakness or fevers. SKIN: No bruising, hair changes or rashes. EYES: No blurred, double or loss of vision. NOSE AND THROAT: No history of nosebleeds, hoarseness or sore throat. HEART: No history of palpitations, chest pain or shortness of breath on exertion. LUNGS: Denies cough, hemoptysis, wheezing or shortness of breath. GASTROINTESTINAL: She complains of flank pain. GENITOURINARY: No history of frequency, urgency, hesitancy or nocturia. NEUROLOGIC: Denies history of numbness, tingling, tremor or weakness. PSYCHIATRIC: No history of panic, anxiety or depression. ENDOCRINE: No history of heat or cold intolerance, polyuria or polydipsia. EXTREMITIES: Denies muscle weakness, joint pain, pain on walking or stiffness. PHYSICAL EXAMINATION: VITAL SIGNS: Temperature afebrile, pulse 98, respirations 22, blood pressure 141/74. GENERAL: She is alert, cooperative. HEART: Normal S1, S2. LUNGS: Clear. ABDOMEN: Soft, tender in the left flank. EXTREMITIES: No edema. SKIN: No rash. ENDOCRINE: No thyromegaly. LYMPHATICS: No cervical nodes. HEMATOPOIETIC: No bruising. LABORATORY DATA: Urine shows a large amount of blood. White count is 8. ASSESSMENT AND PLAN: Renal stone with intractable pain and hydronephrosis. The patient has been admitted. We will consult Genitourinary Medicine. IV fluids, p.r.n. pain meds, continue home medicines, strain her urine, frequent labs. Suspect she might need cystoscopy tomorrow. YELENA GREEN DO DR: KINZA/ciro JOB#: [id number] / [id number]
[2018-01-26] MEDS: HYDROcodone/APAP 5/325MG 1 TAB TABLET PO PRN (20:45)
[2018-01-26] MEDS ORDERED: NICOTINE POLACRILEX 2MG GUM PACKAGE of 12. BC PRN (21:00)
[2018-01-26] MEDS ORDERED: ATORVASTATIN CALCIUM 10 MG TABLET. PO SCH (21:00)
[2018-01-26] MEDS ORDERED: ZOLPIDEM 5 MG TABLET. PO ONE (21:15)
[2018-01-26 22:50] VITALS: BP 112/55
[2018-01-27] MEDS ORDERED: NICOTINE 21MG PATCH. TD ONE (01:30)
[2018-01-27] MEDS: IV NORMAL SALINE 1000ML BAG 1,000 ML IV SCH (01:36)
[2018-01-27 02:46] VITALS: BP 126/65
[2018-01-27] MEDS: MORPHINE SULFATE 4 MG/ML VIAL. IV PRN (06:31)
--- NOTE | 2018-01-27 07:48 | PDOC ---
PROGRESS NOTES Chief Complaint Chief Complaint 8 mm right UPJ stone with moderate hydro, not infected and 5 mm nonobstructive stone in the left renal pelvis=Pt feeling much better after medication. WBC/ Kidney function WNL, afebrile, Urine low suspicion for infection (trace leuks, neg nitrite, no bacteria) Prefers not to have surgery today if possible. May eat today, NPO at midnight. Nicotine patch. Flomax. Strain urine. KUB in the am at 0600 to check stone. Recommend IVF when blood pressure is under control. Will re-evaluate in the am. Discussed with patient that if pain remains under control she can go home tomorrow morning. If not, we may proceed with a surgery. ESWL Wednesday with Dr. Mao is also an option. History of Present Illness History of Present Illness 47 year old female is known to us and is a patient of Dr. Hickey. She did receive follow up surgical care from him on November 24 and after the procedure was told everything went well and that the remaining stones in her kidney should "pass on their own." She has seen a few stones come out since then and was actually feeling quite well until last night. She was supposed to receive another CT ABD/PELVIS toward the end of December. However, her insurance did not approve and so this fell through. She was scheduled to follow up with him in one year. She developed nausea dn severe pain in her right CVA area and midback and came into [facility] ER for this reason. A CT scan was done and this is when the two kidney stones were found, one at UPJ on right, 8mm on CT, repeat 7mm on KUB, but her pain is well controlled. Her nausea has also subsided completely and she would like to eat. She prefers not to do a surgery today unless absolutely necessary. She is willing to have this treated further outpatient and return to work. Home on pain medications, flomax. Lorri, surgery specialist [place] [facility] [place] later this week to setup ESWL with Dr. Mao on either Wednesday of next week or of next week with Dr. Mao. Please call office if you do not hear from Lorri by late Wednesday. Vitals Vitals Vital Signs Date Time Temp Pulse Resp B/P (MAP) Pulse Ox O2 Delivery O2 Flow Rate FiO2 11/1/18 07:01 Room Air 01/27/18 06:31 20 97 01/27/18 02:46 97.9 69 126/65 (85) 97.9 Physical Exam General: Alert, Oriented X3, Cooperative, No acute distress Heart: Regular rate, No murmurs Lungs: Clear Abdomen: Normal bowel sounds, Soft, No tenderness Extremities: No clubbing, No edema, Normal pulses, No tenderness/swelling Skin: No rashes, No breakdown, No significant lesion Assessment and Plan Assessmemt and Plan Problems Medical Problems: (1) Kidney stones Status: Acute Comment Review of Relevant I have reviewed the following items trudy (where applicable) has been applied. Labs Laboratory Tests Test 01/26/18 05:04 01/26/18 05:20 01/26/18 07:30 White Blood Count 8.2 x10^3/uL (4.0-11.0) Red Blood Count 4.68 x10^6/uL (3.50-5.40) Hemoglobin 12.9 g/dL (12.0-15.5) Hematocrit 39.1 % (36.0-47.0) Mean Corpuscular Volume 83 fL (79-100) Mean Corpuscular Hemoglobin 28 pg (25-35) Mean Corpuscular Hemoglobin Concent 33 g/dL (31-37) Red Cell Distribution Width 14.8 % (11.5-14.5) Platelet Count 283 x10^3/uL (140-400) Neutrophils (%) (Auto) 51 % (31-73) Lymphocytes (%) (Auto) 36 % (24-48) Monocytes (%) (Auto) 9 % (0-9) Eosinophils (%) (Auto) 4 % (0-3) Basophils (%) (Auto) 1 % (0-3) Neutrophils # (Auto) 4.2 x10^3uL (1.8-7.7) Lymphocytes # (Auto) 3.0 x10^3/uL (1.0-4.8) Monocytes # (Auto) 0.7 x10^3/uL (0.0-1.1) Eosinophils # (Auto) 0.3 x10^3/uL (0.0-0.7) Basophils # (Auto) 0.1 x10^3/uL (0.0-0.2) Sodium Level 142 mmol/L (136-145) Potassium Level 3.8 mmol/L (3.5-5.1) Chloride Level 106 mmol/L (98-107) Carbon Dioxide Level 26 mmol/L (21-32) Anion Gap 10 (6-14) Blood Urea Nitrogen 13 mg/dL (7-20) Creatinine 0.9 mg/dL (0.6-1.0) Estimated GFR (Cockcroft-Gault) 67.1 BUN/Creatinine Ratio 14 (6-20) Glucose Level 96 mg/dL (70-99) Calcium Level 10.0 mg/dL (8.5-10.1) Total Bilirubin 0.2 mg/dL (0.2-1.0) Aspartate Amino Transf (AST/SGOT) 13 U/L (15-37) Alanine Aminotransferase (ALT/SGPT) 18 U/L (14-59) Alkaline Phosphatase 89 U/L (46-116) Total Protein 7.3 g/dL (6.4-8.2) Albumin 3.7 g/dL (3.4-5.0) Albumin/Globulin Ratio 1.0 (1.0-1.7) Bedside Urine HCG, Qualitative Hcg negative (Negative) Urine Collection Type Unknown Urine Color Yellow Urine Clarity Clear Urine pH 5.5 Urine Specific [place] 1.015 Urine Protein Negative mg/dL (NEG-TRACE) Urine Glucose (UA) Negative mg/dL (NEG) Urine Ketones (Stick) Negative mg/dL (NEG) Urine Blood Large (NEG) Urine Nitrite Negative (NEG) Urine Bilirubin Negative (NEG) Urine Urobilinogen Dipstick 0.2 mg/dL (0.2 mg/dL) Urine Leukocyte Esterase Trace (NEG) Urine RBC 20-40 /HPF (0-2) Urine WBC Rare /HPF (0-4) Urine Bacteria 0 /HPF (0-FEW) Medications Current Medications Ketorolac Tromethamine (Toradol 15mg Vial) 15 mg 1X ONCE IV Last administered on 01/26/18at 05:34; Start 01/26/18 at 05:30; Stop 01/26/18 at 05:31; Status DC Ondansetron HCl (Zofran) 4 mg 1X ONCE IV Last administered on 01/26/18at 05:33 ; Start 01/26/18 at 05:30; Stop 01/26/18 at 05:31; Status DC Fentanyl Citrate (Fentanyl 2ml Vial) 50 mcg 1X ONCE IV Last administered on at 05:36; Start 01/26/18 at 05:30; Stop 01/26/18 at 05:31; Status DC Sodium Chloride 1,000 ml @ 1,000 mls/hr 1X ONCE IV Last administered on 01/26at 05:38; Start 01/26/18 at 06:00; Stop 01/26/18 at 06:59; Status DC Morphine Sulfate (Morphine Sulfate) 5 mg 1X ONCE IV Last administered on 01/26at 07:57; Start 01/26/18 at 07:45; Stop 01/26/18 at 07:46; Status DC Ondansetron HCl (Zofran) 4 mg PRN Q8HRS PRN IV NAUSEA/VOMITING Last administered on 01/26/18at 20:59; Start 01/26/18 at 08:00; Stop 01/27/18 at 07: 59 Morphine Sulfate (Morphine Sulfate) 4 mg PRN Q2HR PRN IV PAIN Last administered on 01/27/18at 06:31; Start 01/26/18 at 08:00; Stop 01/27/18 at 07: 59 Nicotine (Nicoderm Cq 21mg) 1 patch DAILY TD Last administered on 01/26/18at 10 :26; Start 01/26/18 at 11:00 Tamsulosin HCl (Flomax) 0.4 mg DAILY PO Last administered on 01/26/18at 10:25; Start 01/26/18 at 10:16 Metoprolol Tartrate (Lopressor) 25 mg BID PO Last administered on 01/26/18at 20 :40; Start 01/26/18 at 13:00 Albuterol Sulfate (Ventolin Neb Soln) 2.5 mg PRN Q6HRS PRN NEB SHORTNESS OF BREATH; Start 01/26/18 at 12:45 Duloxetine HCl (Cymbalta) 60 mg DAILY PO Last administered on 01/26/18at 13:03 ; Start 01/26/18 at 13:00 Atorvastatin Calcium (Lipitor) 5 mg QHS PO Last administered on 01/26/18at 20: 41; Start 01/26/18 at 21:00 Acetaminophen/ Hydrocodone Bitart (Lortab 5/325) 1 tab PRN Q4HRS PRN PO PAIN Last administered on 01/26/18at 20:45; Start 01/26/18 at 12:30 Sodium Chloride 1,000 ml @ 75 mls/hr [id number] IV Last administered on at 01:36; Start 01/26/18 at 15:30 Nicotine Polacrilex (Nicorette Gum) 1 each PRN Q1HR PRN BC SMOKING CESSATION; Start 01/26/18 at 21:00 Zolpidem Tartrate (Ambien) 5 mg 1X ONCE PO Last administered on 01/26/18at 22: 06; Start 01/26/18 at 21:15; Stop 01/26/18 at 21:16; Status DC Nicotine (Nicoderm Cq 21mg) 1 patch ONCE ONCE TD Last administered on at 01:33; Start 01/27/18 at 01:30; Stop 01/27/18 at 01:31; Status DC Active Scripts Active Proair Hfa Inhaler (Albuterol Sulfate) 8.5 Gm Hfa.aer.ad 1 Puff INH PRN Q6HRS PRN Reported Cymbalta (Duloxetine Hcl) 60 Mg Capsule. 1 Cap PO DAILY Lovastatin 20 Mg Tablet 1 Tab PO DAILY Vitamin D3 (Cholecalciferol (Vitamin D3)) 5,000 Unit Tab.rapdis 15,000 Unit PO QWEEKLY Metoprolol Tartrate 25 Mg Tablet 1 Tab PO BID Vitals/I & O Vital Sign - Last 24 Hours 01/26/18 01/26/18 01/26/18 01/26/18 07:57 08:00 08:30 09:30 Pulse 68 66 6 Resp 18 18 18 18 B/P (MAP) 144/77 (99) 134/63 (86) 146/64 (91) Pulse Ox 96 94 94 94 O2 Delivery Room Air Room Air Room Air Room Air 01/26/18 01/26/18 01/26/18 01/26/18 10:35 11:00 13:03 14:06 Temp 97.5 97.5 Pulse 61 61 Resp 18 B/P (MAP) 150/77 (101) 150/77 Pulse Ox 95 95 O2 Delivery Room Air Room Air 01/26/18 01/26/18 01/26/18 01/26/18 15:00 15:08 15:40 19:00 Temp 97.6 97.5 97.6 97.5 Pulse 62 71 Resp 18 18 B/P (MAP) 131/76 (94) 126/63 (84) Pulse Ox 98 95 99 96 O2 Delivery Room Air Room Air Room Air 01/26/18 01/26/18 01/26/18 01/26/18 20:00 20:40 20:45 21:45 Pulse 71 Resp 18 20 B/P (MAP) 126/63 Pulse Ox 96 96 O2 Delivery Room Air Room Air Room Air 01/26/18 01/27/18 01/27/18 01/27/18 22:50 02:46 06:31 07:01 Temp 98.1 97.9 98.1 97.9 Pulse 69 69 Resp 18 18 20 B/P (MAP) 112/55 (74) 126/65 (85) Pulse Ox 96 97 97 O2 Delivery Room Air Room Air Room Air Room Air Intake and Output 01/26/18 01/26/18 01/27/18 15:00 23:00 07:00 Intake Total 500 ml Output Total 2000 ml 1200 ml Balance -1500 ml -1200 ml BRONSON LOPEZ MD Jan 27, 2018 07:48
[2018-01-27 08:00] VITALS: BP 152/55
[2018-01-27] MEDS ORDERED: MORPHINE SULFATE 4 MG/ML VIAL. IV PRN (08:45)
--- NOTE | 2018-01-27 08:51 | RAD ---
Portable abdomen, 01/27/2018: HISTORY: Right-sided kidney stone The abdominal gas pattern is unremarkable. The renal regions are partially obscured by overlying bowel. There is a small calculus in the upper pole of the left kidney. The small elongated calculus seen in the proximal right ureter on yesterday's CT study is unchanged in position. Radiographically it measures approximately 6 x 2 mm. There is no evidence of organomegaly. IMPRESSION: The proximal right ureteral calculus is unchanged in position since yesterday's CT study. Electronically signed by: Malik Villegas MD (01/27/2018 8:48 AM) [facility]
[2018-01-27] MEDS: DULoxetine HCL 30 MG CAPSULE.DR PO SCH (08:56)
[2018-01-27] MEDS: TAMSULOSIN 0.4 MG CAP.ER.24H. PO SCH (08:56)
[2018-01-27] MEDS: METOPROLOL TART IMMED RELEASE 25 MG TABLET. PO SCH (08:56)
[2018-01-27] MEDS: HYDROcodone/APAP 5/325MG 1 TAB TABLET PO PRN (08:57)
[2018-01-27] MEDS: NICOTINE 21MG PATCH. TD SCH (09:00)
[2018-01-27] MEDS ORDERED: TAMS0.4C97 PO (10:28)
[2018-01-27] MEDS ORDERED: HYDR-2758 PO (10:28)
--- NOTE | 2018-01-27 10:31 | PDOC3 ---
Discharge Summary Visit Information Date of Admission: Jan 25, 2018 Date of Discharge: Jan 27, 2018 Admitting Diagnosis: Right hydronephrosis, UPJ obstruction nephrolithiasis Final Diagnosis Problems Medical Problems: (1) Kidney stones Status: Acute Brief Hospital Course Allergies Allergies Coded Allergies Type Severity Reaction Last Updated Verified Sulfa (Sulfonamide Antibiotics) Allergy Intermediate 01/26/18 Yes Vital Signs Vital Signs Date Time Temp Pulse Resp B/P (MAP) Pulse Ox O2 Delivery O2 Flow Rate FiO2 01/27/18 10:06 Room Air 01/27/18 08:56 62 155/55 01/27/18 08:00 97.9 16 96 97.9 Lab Results Laboratory Tests Test 01/26/18 05:04 01/26/18 05:20 01/26/18 07:30 White Blood Count 8.2 x10^3/uL (4.0-11.0) Red Blood Count 4.68 x10^6/uL (3.50-5.40) Hemoglobin 12.9 g/dL (12.0-15.5) Hematocrit 39.1 % (36.0-47.0) Mean Corpuscular Volume 83 fL (79-100) Mean Corpuscular Hemoglobin 28 pg (25-35) Mean Corpuscular Hemoglobin Concent 33 g/dL (31-37) Red Cell Distribution Width 14.8 % (11.5-14.5) Platelet Count 283 x10^3/uL (140-400) Neutrophils (%) (Auto) 51 % (31-73) Lymphocytes (%) (Auto) 36 % (24-48) Monocytes (%) (Auto) 9 % (0-9) Eosinophils (%) (Auto) 4 % (0-3) Basophils (%) (Auto) 1 % (0-3) Neutrophils # (Auto) 4.2 x10^3uL (1.8-7.7) Lymphocytes # (Auto) 3.0 x10^3/uL (1.0-4.8) Monocytes # (Auto) 0.7 x10^3/uL (0.0-1.1) Eosinophils # (Auto) 0.3 x10^3/uL (0.0-0.7) Basophils # (Auto) 0.1 x10^3/uL (0.0-0.2) Sodium Level 142 mmol/L (136-145) Potassium Level 3.8 mmol/L (3.5-5.1) Chloride Level 106 mmol/L (98-107) Carbon Dioxide Level 26 mmol/L (21-32) Anion Gap 10 (6-14) Blood Urea Nitrogen 13 mg/dL (7-20) Creatinine 0.9 mg/dL (0.6-1.0) Estimated GFR (Cockcroft-Gault) 67.1 BUN/Creatinine Ratio 14 (6-20) Glucose Level 96 mg/dL (70-99) Calcium Level 10.0 mg/dL (8.5-10.1) Total Bilirubin 0.2 mg/dL (0.2-1.0) Aspartate Amino Transf (AST/SGOT) 13 U/L (15-37) Alanine Aminotransferase (ALT/SGPT) 18 U/L (14-59) Alkaline Phosphatase 89 U/L (46-116) Total Protein 7.3 g/dL (6.4-8.2) Albumin 3.7 g/dL (3.4-5.0) Albumin/Globulin Ratio 1.0 (1.0-1.7) Bedside Urine HCG, Qualitative Hcg negative (Negative) Urine Collection Type Unknown Urine Color Yellow Urine Clarity Clear Urine pH 5.5 Urine Specific [place] 1.015 Urine Protein Negative mg/dL (NEG-TRACE) Urine Glucose (UA) Negative mg/dL (NEG) Urine Ketones (Stick) Negative mg/dL (NEG) Urine Blood Large (NEG) Urine Nitrite Negative (NEG) Urine Bilirubin Negative (NEG) Urine Urobilinogen Dipstick 0.2 mg/dL (0.2 mg/dL) Urine Leukocyte Esterase Trace (NEG) Urine RBC 20-40 /HPF (0-2) Urine WBC Rare /HPF (0-4) Urine Bacteria 0 /HPF (0-FEW) Brief Hospital Course 47 year old female is known to us and is a patient of Dr. Hickey. She did receive follow up surgical care from him on November 24 and after the procedure was told everything went well and that the remaining stones in her kidney should "pass on their own." She has seen a few stones come out since then and was actually feeling quite well until last night. She was supposed to receive another CT ABD/PELVIS toward the end of December. However, her insurance did not approve and so this fell through. She was scheduled to follow up with him in one year. She developed nausea dn severe pain in her right CVA area and midback and came into [facility] ER for this reason. A CT scan was done and this is when the two kidney stones were found, one at UPJ on right, 8mm on CT, repeat 7mm on KUB, but her pain is well controlled. Her nausea has also subsided completely and she would like to eat. She prefers not to do a surgery today unless absolutely necessary. She is willing to have this treated further outpatient and return to work. Home on pain medications, flomax. Lorri, home health scheduler for [employer] will call patient later this week to setup ESWL with Dr. Mao on either Wednesday of next week or of next week with Dr. Mao. Please call office if you do not hear from Lorri by late Wednesday. 8 mm right UPJ stone with moderate hydro, not infected and 5 mm nonobstructive stone in the left renal pelvis=Pt feeling much better after medication. WBC/ Kidney function WNL, afebrile, Urine low suspicion for infection (trace leuks, neg nitrite, no bacteria) Prefers not to have surgery today if possible. May eat today Nicotine patch. Flomax. Strain urine. Discharge Information Condition at Discharge: Improved Follow Up: Weeks (2) Disposition/Orders: D/C to Home Scheduled Cholecalciferol (Vitamin D3) (Vitamin D3) 5,000 Unit Tab.rapdis, 15,000 UNIT PO QWEEKLY, (Reported) Entered as Reported by: WHITLEY HERCULES on 11/12/17 1648 Duloxetine Hcl (Cymbalta) 60 Mg Capsule.dr, 1 CAP PO DAILY, #90 Ref 3 (Reported) Entered as Reported by: ARIANNA ROSARIO on 11/16/17 1244 Last Action: Converted on 01/26/18 1225 by LAKSHMI CASSIDY Lovastatin (Lovastatin) 20 Mg Tablet, 1 TAB PO DAILY, #30 Ref 5 (Reported) Entered as Reported by: WHITLEY HERCULES on 11/12/17 1649 Last Action: Converted on 01/26/18 1225 by LAKSHMI CASSIDY Metoprolol Tartrate (Metoprolol Tartrate) 25 Mg Tablet, 1 TAB PO BID, #180 Ref 1 (Reported) Entered as Reported by: LEXIE GALLEGO on 03/28/14 1540 Last Action: Continued on 01/26/18 1225 by LAKSHMI CASSIDY Tamsulosin Hcl (Flomax) 0.4 Mg Cap.er.24h, 0.4 MG PO DAILY for renal stone for 14 Days, #14 Prescribed by: BRONSON LOPEZ MD on 01/27/18 1028 Scheduled PRN Albuterol Sulfate (Proair Hfa Inhaler) 8.5 Gm Hfa.aer.ad, 1 PUFF INH PRN Q6HRS PRN for SHORTNESS OF BREATH, #1 Ref 0 Prescribed by: RUPA WILKINS PA-C on 03/07/17 0818 Last Action: Converted on 01/26/18 1225 by LAKSHMI CASSIDY Hydrocodone Bit/Acetaminophen (Hydrocodone-Apap 5-325 ) 1 Each Tablet, 1 TAB PO PRN Q4HRS PRN for PAIN for 6 Days, #36 Prescribed by: BRONSON LOPEZ MD on 01/27/18 1028 Discontinued Medications Hydrocodone/Apap 5-325 (Odin 5-325 Tablet) 1 Each Tablet, 1 TAB PO Q4HRS for PAIN, #15 NS (Reported) Entered as Reported by: AVINASH RABAGO on 11/16/17 1520 Last Action: Discontinued on 01/26/18 1036 by BRONSON HOLLOWAY MD Jan 27, 2018 10:31
--- NOTE | 2018-01-27 10:43 | PDOC ---
SUBJECTIVE Subjective Pt doing well this am. Pain well controlled, no nausea/vomiting. Sitting up, eating breakfast. OBJECTIVE Objective Physical Exam: General appearance: Alert and Oriented Head: Normocephalic, without obvious abnormality Eyes: conjunctivae/corneas clear. PERRL, EOM's intact. Fundi benign Back: negative Lungs: Regular respirations, non labored breathing. Vital Signs Vital Signs Date Time Temp Pulse Resp B/P (MAP) Pulse Ox O2 Delivery O2 Flow Rate FiO2 01/27/18 10:06 Room Air 01/27/18 08:57 Room Air 01/27/18 08:56 62 155/55 01/27/18 08:00 97.9 62 16 152/55 (87) 96 Room Air 97.9 01/27/18 07:01 Room Air 01/27/18 06:31 20 97 Room Air 01/27/18 02:46 97.9 69 18 126/65 (85) 97 Room Air 97.9 01/26/18 22:50 98.1 69 18 112/55 (74) 96 Room Air 98.1 01/26/18 21:45 20 96 01/26/18 20:45 18 96 Room Air 01/26/18 20:40 71 126/63 01/26/18 20:00 Room Air 01/26/18 19:00 97.5 71 18 126/63 (84) 96 Room Air 97.5 01/26/18 15:40 99 Room Air 01/26/18 15:08 95 01/26/18 15:00 97.6 62 18 131/76 (94) 98 Room Air 97.6 01/26/18 14:06 95 01/26/18 13:03 61 150/77 01/26/18 11:00 97.5 61 18 150/77 (101) 95 Room Air 97.5 I & O Intake and Output 01/27/18 07:00 Intake Total 500 ml Output Total 3200 ml Balance -2700 ml Intake Oral 500 ml Output Urine Total 3200 ml PHYSICAL EXAM Physical Exam Physical Exam: General appearance: Alert and Oriented Head: Normocephalic, without obvious abnormality Eyes: conjunctivae/corneas clear. PERRL, EOM's intact. Fundi benign Back: negative Lungs: Regular respirations, non labored breathing. ASSESSMENT/PLAN Assessment/Plan Patient may discharge home whenever medical team is ready. Home on pain medications, flomax. Lorri, senior mechanical project engineer for [facility] will call patient later this week to setup ESWL with Dr. Mao on either Wednesday of next week or of next week with Dr. Mao. Please call office if you do not hear from Lorri by late Wednesday. Problems: (1) Kidney stones COMMENT Imaging KUB: IMPRESSION: The proximal right ureteral calculus is unchanged in position since yesterday's CT study. JOSE R HAWKINS EDUCATIONAL INTERPRETER Jan 27, 2018 10:43
[2018-01-27 11:00] VITALS: BP 117/67
== END 2018-01-27 12:40 | disposition home or self-care (01) | DRG 694 ==
LOC: ER 04:44 → 4 NORTH 07:38
PROVIDERS: ADMIT Internal Medicine; ATTEND Internal Medicine
DX: N13.2 Hydronephrosis with renal and ureteral calculous obstruction (principal); I10 Essential (primary) hypertension; E78.00 Pure hypercholesterolemia, unspecified; E78.5 Hyperlipidemia, unspecified; F32.9 Major depressive disorder, single episode, unspecified; G89.29 Other chronic pain; M79.7 Fibromyalgia; Z82.49 Family history of ischemic heart disease and other diseases of the circulatory system; Z88.2 Allergy status to sulfonamides; Z85.41 Personal history of malignant neoplasm of cervix uteri; Z87.442 Personal history of urinary calculi; Z79.899 Other long term (current) drug therapy
CPT/HCPCS: 36415; 74018; 74176; 80053; 81001; 81025; 85025; 87086; 96361; 96374; 96375; J1885; J2270; J2405; J3010; J7030; 99285-25

== ENCOUNTER → 2018-02-22 | Outpatient (CLI) | payer OTHER ==
[2018-01-27 11:00] VITALS: BP 117/67
[~2018-02-22] MED LIST changes: +HYDR-2761 PO; +HYDR-3164 PO; -HYDR-971 PO; -OXYC-323 PO; +OXYC1TAB15 PO; +TAMS0.4C97 PO
[2018-02-23 03:15] LABS: CALCIUM PTH 10.3 mg/dL (8.7-10.2); CREATININE PTH 0.72 mg/dL (0.57-1.00); PHOSPHORUS PTH 2.7 mg/dL (2.5-4.5); PTH INTACT 74 pg/mL (15-65)
== END | disposition home or self-care (01) ==
LOC: LAB 09:35
PROVIDERS: ATTEND Internal Medicine Endocrinology, Diabetes & Metabolism
DX: E55.9 Vitamin D deficiency, unspecified (principal); E21.3 Hyperparathyroidism, unspecified
CPT/HCPCS: 36415; 82306; 83970

== ENCOUNTER → 2018-02-22 | Outpatient (CLI) | payer OTHER ==
[2018-01-27 11:00] VITALS: BP 117/67
--- NOTE | 2018-02-22 15:22 | RAD ---
KUB, 02/22/2018: HISTORY: Kidney stones Comparison is made to a study from 01/27/2018. The renal regions are partially obscured by overlying bowel. A small calculus is again noted in the upper pole of the left kidney. A small calculus previously seen in the proximal right ureter is no longer visible. The abdominal gas pattern is unremarkable. There is no evidence organomegaly. IMPRESSION: 1. The proximal right ureteral calculus is no longer visible. 2. Small left intrarenal calculus. Electronically signed by: Malik Villegas MD (02/22/2018 3:18 PM) [facility]
== END | disposition home or self-care (01) ==
LOC: RAD 09:33
PROVIDERS: ATTEND Urology
DX: N20.2 Calculus of kidney with calculus of ureter (principal)
CPT/HCPCS: 74018

== ENCOUNTER 2018-03-02 14:31 | Emergency (ER) | payer OTHER ==
[~2018-03-02] VITALS: Ht 165.1 cm; Wt 96.6 kg
--- NOTE | 2018-03-02 15:09 | PHYS DOC ---
Past Medical History Past Medical History: Cancer, Depression, Fibromyalgia, High Cholesterol, Hypertension, Kidney Infection, Kidney Stone, Other Additional Past Medical Histor: chronic back pain, bulging discs, cervical cancer, vitamin D deficient Past Surgical History: Other Additional Past Surgical Histo: D&C, left breast cyst removed,LITHOTRIPSY 2017 Alcohol Use: Occasionally Drug Use: None Adult General Chief Complaint Chief Complaint: Palpitations HPI HPI Patient is a 47-year-old female presents to the emergency department for evaluation. She states that about an hour prior to arrival she began experiencing some palpitations. She states that she felt her heart beating fast , I was able to hear her pulse in her neck and left ear. She did not have any pain, including any chest pain. She denies any shortness of breath, headache, vision changes, numbness, weakness. She states that her palpitations have been persistent, and states that they are ongoing during the time of my assessment and examined. An EKG demonstrates normal sinus rhythm with no ectopy. She states she had a similar episode to this several years ago, but no definitive arrhythmia could be found. There are no alleviating or exacerbating factors to her symptoms. She states she has been under a lot of stress, and does feel anxious. She is currently being treated for a kidney stone, being followed by urology. The patient is followed by an transmitter engineer in charge, whom she sees for vitamin D issues, and possible thyroid dysfunction, and she has a follow-up appointment scheduled for tomorrow. Review of Systems Review of Systems Constitutional: Denies fever or chills [] Eyes: Denies change in visual acuity, redness, or eye pain [] HENT: Denies nasal congestion or sore throat [] Respiratory: Denies cough or shortness of breath [] Cardiovascular: No additional information not addressed in HPI [] GI: Denies abdominal pain, nausea, vomiting, bloody stools or diarrhea [] : Denies dysuria or hematuria [] Musculoskeletal: Denies back pain or joint pain [] Integument: Denies rash or skin lesions [] Neurologic: Denies headache, focal weakness or sensory changes [] Endocrine: Denies polyuria or polydipsia [] All other systems were reviewed and found to be within normal limits, except as documented in this note. Current Medications Current Medications Current Medications Medications (Trade) Dose Ordered Sig/Charlotte Start Time Stop Time Status Last Admin Dose Admin Lorazepam (Ativan) 1 mg 1X ONCE 03/02/18 15:00 03/02/18 15:01 DC 03/02/18 15:19 1 MG Allergies Allergies Allergies Coded Allergies Type Severity Reaction Last Updated Verified Sulfa (Sulfonamide Antibiotics) Allergy Intermediate 01/26/18 Yes Physical Exam Physical Exam PHYSICAL EXAM: CONSTITUTIONAL: Well developed, well nourished HEAD: normocephalic, atraumatic EENT: PERRL, EOMI. Conjunctivae normal color, sclerae non-icteric; moist mucous membranes. NECK: Supple, non-tender; no meningismus. There are no carotid bruits. LUNGS: Lungs CTA, breathing even and unlabored. Normal air movement. HEART: Regular rate and rhythm, no murmur CHEST: No deformity; non-tender ABDOMEN: The abdomen is soft, and non-tender, no masses or bruits. EXTREM: Normal ROM; no deformity, no calf tenderness. Normal pulses palpable in all extremities. There is no pedal edema. SKIN: No rash; no diaphoresis NEURO: Alert; normal speech and cognition; CN's grossly intact; strength grossly intact without focal deficit. BACK: No CVA TTP. Current Patient Data Vital Signs Vital Signs Date Time Temp Pulse Resp B/P (MAP) Pulse Ox O2 Delivery O2 Flow Rate FiO2 03/02/18 14:31 98.0 83 18 145/105 (118) 100 Room Air 98.0 Lab Values Laboratory Tests Test 03/02/18 15:00 03/02/18 15:30 POC Urine HCG, Qualitative Hcg negative (Negative) White Blood Count 6.9 x10^3/uL (4.0-11.0) Red Blood Count 4.25 x10^6/uL (3.50-5.40) Hemoglobin 11.8 g/dL (12.0-15.5) L Hematocrit 35.4 % (36.0-47.0) L Mean Corpuscular Volume 83 fL (79-100) Mean Corpuscular Hemoglobin 28 pg (25-35) Mean Corpuscular Hemoglobin Concent 33 g/dL (31-37) Red Cell Distribution Width 14.8 % (11.5-14.5) H Platelet Count 266 x10^3/uL (140-400) Neutrophils (%) (Auto) 56 % (31-73) Lymphocytes (%) (Auto) 33 % (24-48) Monocytes (%) (Auto) 8 % (0-9) Eosinophils (%) (Auto) 3 % (0-3) Basophils (%) (Auto) 0 % (0-3) Neutrophils # (Auto) 3.9 x10^3uL (1.8-7.7) Lymphocytes # (Auto) 2.3 x10^3/uL (1.0-4.8) Monocytes # (Auto) 0.6 x10^3/uL (0.0-1.1) Eosinophils # (Auto) 0.2 x10^3/uL (0.0-0.7) Basophils # (Auto) 0.0 x10^3/uL (0.0-0.2) Sodium Level 142 mmol/L (136-145) Potassium Level 4.2 mmol/L (3.5-5.1) Chloride Level 106 mmol/L (98-107) Carbon Dioxide Level 27 mmol/L (21-32) Anion Gap 9 (6-14) Blood Urea Nitrogen 8 mg/dL (7-20) Creatinine 0.7 mg/dL (0.6-1.0) Estimated GFR (Cockcroft-Gault) 89.7 BUN/Creatinine Ratio 11 (6-20) Glucose Level 123 mg/dL (70-99) H Calcium Level 9.9 mg/dL (8.5-10.1) Magnesium Level 1.9 mg/dL (1.8-2.4) Total Bilirubin 0.1 mg/dL (0.2-1.0) L Aspartate Amino Transferase (AST) 14 U/L (15-37) L Alanine Aminotransferase (ALT) 18 U/L (14-59) Alkaline Phosphatase 102 U/L (46-116) Creatine Kinase 71 U/L (26-192) Creatine Kinase MB (Mass) 1.2 ng/mL (0.0-3.6) Creatine Kinase MB Relative Index % (0-4) Troponin I Quantitative < 0.017 ng/mL (0.000-0.055) Total Protein 6.2 g/dL (6.4-8.2) L Albumin 3.2 g/dL (3.4-5.0) L Albumin/Globulin Ratio 1.1 (1.0-1.7) Thyroid Stimulating Hormone (TSH) 1.903 uIU/mL (0.358-3.74) Free Thyroxine 1.06 ng/dL (0.76-1.46) Laboratory Tests 03/02/18 15:30 Laboratory Tests 03/02/18 15:30 EKG EKG [Normal sinus rhythm at a rate of 81 beats for minute, left axis deviation, normal intervals, there are no acute ischemic ST/T changes. No ectopy is noted.] Radiology/Procedures Radiology/Procedures [] Course & Med Decision Making Course & Med Decision Making Pertinent Lab studies reviewed. (See chart for details) [4:30 PM: The patient's condition remains a stable. She has had no ectopy on the monitor. I discussed importance of close PCP follow-up as well as follow-up with her transmitter engineer in charge, and return cautions. ] Dragon Disclaimer Dragon Disclaimer This electronic medical record was generated, in whole or in part, using a voice recognition dictation system. Departure Departure Impression: Primary Impression: Palpitations Disposition: 01 HOME, SELF-CARE Condition: STABLE Referrals: MIA FULLER APRN (PCP) DONALD AVALOS MD Patient Instructions: Anxiety and Panic Attacks, Palpitations Additional Instructions: Follow-up with your primary care provider, as well as your transmitter engineer in charge as scheduled. SUSANNE RICKETTS MD Mar 02, 2018 15:09
--- NOTE | 2018-03-02 15:42 | EKG ---
[facility] [address] [place] [address] Test Date: 2018-03-02 Test Time: 14:37:04 Pat Name: MARSHA TRIVEDI Department: Room: Gender: F [employer]: : 1970 Requested By: SUSANNE RICKETTS Order Number: [id number] Reading MD: Measurements Intervals [place] Rate: 81 P: 45 IL: 146 QRS: -23 QRSD: 88 T: 35 QT: 362 QTc: 426 Interpretive Statements SINUS RHYTHM LEFTWARD AXIS NO SPECIFIC ECG ABNORMALITIES RI6.01 No previous ECG available for comparison
[2018-03-02 15:43] LABS: BASO % 0 % (0-3); EOS # 0.2 x10^3/uL (0.0-0.7); EOS % 3 % (0-3); HEMATOCRIT 35.4 % (36.0-47.0); HEMOGLOBIN 11.8 g/dL (12.0-15.5); LYMPH # 2.3 x10^3/uL (1.0-4.8); LYMPH % 33 % (24-48); MEAN CORPUSCULAR HEMOGLOBIN 28 pg (25-35); MEAN CORPUSCULAR HGB CONC 33 g/dL (31-37); MEAN CORPUSCULAR VOLUME 83 fL (79-100); MONO # 0.6 x10^3/uL (0.0-1.1); MONO % 8 % (0-9); NEUT # 3.9 x10^3uL (1.8-7.7); NEUT % 56 % (31-73); PLATELET COUNT 266 x10^3/uL (140-400); RED BLOOD COUNT 4.25 x10^6/uL (3.50-5.40); RED CELL DISTRIBUTION WIDTH 14.8 % (11.5-14.5); WHITE BLOOD COUNT 6.9 x10^3/uL (4.0-11.0)
[2018-03-02 15:52] LABS: CALCIUM 9.9 mg/dL (8.5-10.1); CREATININE 0.7 mg/dL (0.6-1.0); GFR 89.7; POTASSIUM 4.2 mmol/L (3.5-5.1)
[2018-03-02 16:00] VITALS: BP 116/80
[2018-03-02 16:06] LABS: ALBUMIN 3.2 g/dL (3.4-5.0); ALBUMIN/GLOBULIN RATIO 1.1 (1.0-1.7); MAGNESIUM 1.9 mg/dL (1.8-2.4); TOTAL BILIRUBIN 0.1 mg/dL (0.2-1.0); TOTAL PROTEIN 6.2 g/dL (6.4-8.2)
[2018-03-02 16:07] LABS: FREE T4 1.06 ng/dL (0.76-1.46); THYROID STIM HORMONE (TSH) 1.903 uIU/mL (0.358-3.74)
[2018-03-02 16:10] LABS: CREATINE KINASE 71 U/L (26-192)
== END 2018-03-02 16:40 | disposition home or self-care (01) ==
LOC: ER 14:31
DX: R00.2 Palpitations (principal); F32.9 Major depressive disorder, single episode, unspecified; E78.00 Pure hypercholesterolemia, unspecified; I10 Essential (primary) hypertension; G89.29 Other chronic pain; Z87.442 Personal history of urinary calculi; Z88.2 Allergy status to sulfonamides
CPT/HCPCS: 36415; 80053; 81025; 82553; 83735; 84439; 84443; 84484; 85025; 93005; 96374; 99284; J2060

== ENCOUNTER 2018-03-08 08:01 | Emergency (ER) | payer OTHER ==
[~2018-03-08] VITALS: Ht 165.1 cm; Wt 95.3 kg
[2018-03-08 08:40] LABS: BILIRUBIN,URINE NEGATIVE (NEG); CLARITY,URINE CLOUDY; COLOR,URINE YELLOW; NITRITE,URINE NEGATIVE (NEG); PROTEIN,URINE NEGATIVE (NEG-TRACE); UROBILINOGEN,URINE 0.2 mg/dL (0.2 mg/dL)
[2018-03-08] MEDS ORDERED: DEXAMETHASONE 4 MG TABLET PO ONE (09:00)
[2018-03-08] MEDS ORDERED: ONDANSETRON ODT 4 MG TAB.RAPDIS. PO ONE (09:00)
[2018-03-08 09:06] LABS: BACTERIA,URINE FEW /HPF (0-FEW); RBC,URINE 20-40 /HPF (0-2); SQUAMOUS EPITHELIAL CELL,UR MOD /LPF
--- NOTE | 2018-03-08 09:30 | PHYS DOC ---
Past Medical History Past Medical History: Cancer, Depression, Fibromyalgia, High Cholesterol, Hypertension, Kidney Infection, Kidney Stone, Other Additional Past Medical Histor: chronic back pain, bulging discs, cervical cancer, vitamin D deficient, Past Medical History Hyperparathyroid Past Surgical History: Other Additional Past Surgical Histo: D&C, left breast cyst removed,LITHOTRIPSY 2017 Smoking: Cigarettes, 1 Pack Per Day Alcohol Use: Occasionally Drug Use: None Adult General Chief Complaint Chief Complaint: FEVER HPI HPI Patient is a 47 year old female with hx of Chronic bronchitis who presents with fever, nausea and vomitting. Pt also endorses lethargy, cough and mild SOB. She mentions her symptoms started on Wednesday night. She has not been able to keep food down nor drink enough water since the onset of her symptoms. She denies eating anything weird prior to the onset of her symptoms. 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 She does not have any constipation or diarrhea. Review of Systems Review of Systems Constitutional: Reports fever or chills [] Eyes: Denies change in visual acuity, redness, or eye pain [] HENT: Denies nasal congestion or sore throat [] Respiratory: Endorses cough and mild shortness of breath [] Cardiovascular: no chest pain or palpitation GI: Endorse nausea, vomiting. Denies abdominal pain, , bloody stools or diarrhea [] : Denies dysuria or hematuria [] Musculoskeletal: Denies back pain or joint pain [] Integument: Denies rash or skin lesions [] Neurologic: Denies headache, focal weakness or sensory changes [] Complete systems were reviewed and found to be within normal limits, except as documented in this note. Current Medications Current Medications Current Medications Medications (Trade) Dose Ordered Sig/Charlotte Start Time Stop Time Status Last Admin Dose Admin Dexamethasone (Decadron) 10 mg 1X ONCE 03/08/18 09:00 03/08/18 09:01 DC 03/08/18 09:08 10 MG Ondansetron HCl (Zofran Odt) 4 mg 1X ONCE 03/08/18 09:00 03/08/18 09:01 DC 03/08/18 09:09 4 MG Allergies Allergies Allergies Coded Allergies Type Severity Reaction Last Updated Verified Sulfa (Sulfonamide Antibiotics) Allergy Intermediate 01/26/18 Yes Physical Exam Physical Exam Constitutional: Well developed, well nourished, no acute distress, non-toxic appearance. [] HENT: Normocephalic, atraumatic, bilateral external ears normal, dry mucous membrane, no oral exudates, nose normal. [] Eyes: PERRL, EOMI, conjunctiva normal, no discharge. [] Neck: Normal range of motion, no tenderness, supple, no stridor. [] Cardiovascular:Heart rate regular rhythm, no murmur [] Lungs & Thorax: Bilateral breath sounds clear to auscultation [] Abdomen: Bowel sounds normal, soft, no tenderness. [] Skin: Warm, dry, no erythema, no rash. [] Back: No tenderness, no CVA tenderness. [] Extremities: No tenderness, no cyanosis, no clubbing, ROM intact, no edema. [] Neurologic: Alert and oriented X 3, normal motor function, normal sensory function, no focal deficits noted. [] Psychologic: Affect normal, judgement normal, mood normal. [] Current Patient Data Vital Signs Vital Signs Date Time Temp Pulse Resp B/P (MAP) Pulse Ox O2 Delivery O2 Flow Rate FiO2 03/08/18 10:32 96 20 111/53 (72) 94 Room Air 03/08/18 08:11 99.3 99.3 Lab Values Laboratory Tests Test 03/08/18 08:30 03/08/18 09:16 Urine Collection Type Unknown Urine Color Yellow Urine Clarity Cloudy Urine pH 8.0 Urine Specific [place] 1.020 Urine Protein Negative mg/dL (NEG-TRACE) Urine Glucose (UA) Negative mg/dL (NEG) Urine Ketones (Stick) Negative mg/dL (NEG) Urine Blood Moderate (NEG) Urine Nitrite Negative (NEG) Urine Bilirubin Negative (NEG) Urine Urobilinogen Dipstick 0.2 mg/dL (0.2 mg/dL) Urine Leukocyte Esterase Trace (NEG) Urine RBC 20-40 /HPF (0-2) Urine WBC 5-10 /HPF (0-4) Urine Squamous Epithelial Cells Mod /LPF Urine Bacteria Few /HPF (0-FEW) Urine Mucus Slight /LPF POC Urine HCG, Qualitative Hcg negative (Negative) Influenza Type A Antigen Negative (NEGATIVE) Influenza Type B Antigen Negative (NEGATIVE) Microbiology 03/08/18 Urine Culture - Final, Complete 03/08/18 Urine Culture Result 1 (JOVANY) - Final, Complete EKG EKG [] Radiology/Procedures Radiology/Procedures PROCEDURE: CHEST PA & LATERAL CHEST PA LATERAL History: PT STATES COUGH AND SOME TROUBLE BREATHING SINCE WEDNESDAY. . Comparison: None. Heart size: Within normal limits. Nisreen/mediastinum: Within normal limits Lungs: Mild coarse increased reticulonodular markings in both lungs, slightly greater in the lung bases. No airspace consolidation. Pleura: No evidence of pleural effusion. Pneumothorax: None visualized Bones: Regional skeleton appears grossly intact. Miscellaneous: None Impression: Mildly prominent reticulonodular markings of both lungs, uncertain significance, could be chronic. No dense airspace consolidation. Consider short-term follow-up chest x-ray. Electronically signed by: Armando Ortiz MD (03/08/2018 9:40 AM) [id number] Course & Med Decision Making Course & Med Decision Making Pertinent Labs and Imaging studies reviewed. (See chart for details) [] Dragon Disclaimer Dragon Disclaimer This electronic medical record was generated, in whole or in part, using a voice recognition dictation system. Departure Departure Impression: Primary Impression: Bronchitis Additional Impression: Nausea and vomiting Disposition: 01 HOME, SELF-CARE Condition: STABLE Referrals: MIA FULLER APRN (PCP) Patient Instructions: Bronchitis, [id number], Nausea and Vomiting, Easy-to- Read Additional Instructions: Hold antibiotics for 48 hours. If symptoms worsen or for fever > 100.3 F after 48 hours then start antibiotics as prescribed. Scripts Azithromycin (ZITHROMAX) 250 Mg Tablet 1 PKG PO UD for bronchitis, #6 TAB Take 2 tablets on day 1 and then 1 tablet each day for the next 4 days as directed Prov: ARMANDO MONTILLA DO 03/08/18 Prednisone (PREDNISONE) 20 Mg Tablet 2 TAB PO DAILY, #8 TAB Start this prescription tomorrow, 03/09/18 Prov: ARMANDO MONTILLA DO 03/08/18 Ondansetron (ONDANSETRON ODT) 4 Mg Tab.rapdis 1 TAB PO PRN Q6-8HRS for VOMITING, #14 TAB Prov: ARMANDO MONTILLA DO 03/08/18 Problem Qualifiers Additional Impression: Nausea and vomiting Vomiting type: unspecified Vomiting Intractability: non-intractable Qualified Codes: R11.2 - Nausea with vomiting, unspecified ARMANDO MONTILLA DO Mar 08, 2018 09:30
--- NOTE | 2018-03-08 09:44 | RAD ---
CHEST PA LATERAL History: PT STATES COUGH AND SOME TROUBLE BREATHING SINCE WEDNESDAY. . Comparison: None. Heart size: Within normal limits. Nisreen/mediastinum: Within normal limits Lungs: Mild coarse increased reticulonodular markings in both lungs, slightly greater in the lung bases. No airspace consolidation. Pleura: No evidence of pleural effusion. Pneumothorax: None visualized Bones: Regional skeleton appears grossly intact. Miscellaneous: None Impression: Mildly prominent reticulonodular markings of both lungs, uncertain significance, could be chronic. No dense airspace consolidation. Consider short-term follow-up chest x-ray. Electronically signed by: Armando Ortiz MD (03/08/2018 9:40 AM) [id number]
[2018-03-08 09:46] LABS: INFLUENZA A PATIENT NEGATIVE (NEGATIVE); INFLUENZA B PATIENT NEGATIVE (NEGATIVE)
[2018-03-08] MEDS ORDERED: PRED20TA PO (10:05)
[2018-03-08] MEDS ORDERED: ONDA4TAB12 PO (10:05)
[2018-03-08] MEDS ORDERED: AZIT250T PO (10:05)
[2018-03-08 10:32] VITALS: BP 111/53
== END 2018-03-08 10:42 | disposition home or self-care (01) ==
LOC: ER 08:01
DX: J42 Unspecified chronic bronchitis (principal); R11.2 Nausea with vomiting, unspecified; F32.9 Major depressive disorder, single episode, unspecified; E78.00 Pure hypercholesterolemia, unspecified; I10 Essential (primary) hypertension; G89.29 Other chronic pain; F17.210 Nicotine dependence, cigarettes, uncomplicated; Z87.442 Personal history of urinary calculi; Z88.2 Allergy status to sulfonamides
CPT/HCPCS: 71046; 81001; 81025; 87086; 87804; 99284; J8540; Q0162

== ENCOUNTER 2018-05-10 02:15 | Emergency (ER) | payer OTHER ==
[~2018-05-10] VITALS: Ht 165.1 cm; Wt 90.7 kg
[~2018-05-10 02:15] MED LIST changes: +ALBU2.5V8 INH; +AZIT250T PO; +ONDA4TAB12 PO; -PROAIR HFA8.5 GM INH
[2018-05-10] MEDS ORDERED: METOCLOPRAMIDE HCL 10 MG/2 ML VIAL. IV ONE (04:00)
[2018-05-10] MEDS ORDERED: diphenhydrAMINE 50 MG/ML VIAL IVP ONE (04:00)
[2018-05-10] MEDS ORDERED: KETOROLAC 15 MG/ML VIAL. IV ONE (04:00)
[2018-05-10] MEDS ORDERED: MELO7.5T29 PO (04:26)
[2018-05-10] MEDS ORDERED: METO10TA81 PO (04:26)
--- NOTE | 2018-05-10 04:27 | PHYS DOC ---
Past Medical History Past Medical History: Cancer, Depression, Fibromyalgia, High Cholesterol, Hypertension, Hypothyroid, Kidney Infection, Kidney Stone, Migraines, Other Additional Past Medical Histor: chronic back pain, bulging discs, cervical cancer, vitamin D deficient, Past Surgical History: Other Additional Past Surgical Histo: D&C, left breast cyst removed,LITHOTRIPSY 2017 Alcohol Use: None Drug Use: None Adult General Chief Complaint Chief Complaint: HEADACHE HPI HPI Patient is a 47 year old female who presents with migraine headache. This is like her usual migraines with photophobia. Nausea as well. Patient was able to tolerate some Tylenol which improved her headache however the nausea persists. Not worst headache of life. No fever. No weakness, numbness, or tingling. This started approximately 1-2 hours prior to arrival. Pain was severe and is improved to moderate with the Tylenol as noted above [] Review of Systems Review of Systems Constitutional: Denies fever or chills [] Eyes: Denies change in visual acuity, redness, or eye pain [] HENT: Denies nasal congestion or sore throat [] Respiratory: Denies cough or shortness of breath [] Cardiovascular: No chest pain or palpitations[] GI: Denies abdominal pain, nausea, vomiting, bloody stools or diarrhea [] : Denies dysuria or hematuria [] Musculoskeletal: Denies back pain or joint pain [] Integument: Denies rash or skin lesions [] Neurologic: Denies focal weakness or sensory changes [] Endocrine: Denies polyuria or polydipsia [] All other systems were reviewed and found to be within normal limits, except as documented in this note. Current Medications Current Medications Current Medications Medications (Trade) Dose Ordered Sig/Charlotte Start Time Stop Time Status Last Admin Dose Admin Diphenhydramine HCl (Benadryl) 25 mg 1X ONCE 05/10/18 04:00 05/10/18 04:01 DC Ketorolac Tromethamine (Toradol 15mg Vial) 15 mg 1X ONCE 05/10/18 04:00 05/10/18 04:01 DC Metoclopramide HCl (Reglan Vial) 10 mg 1X ONCE 05/10/18 04:00 05/10/18 04:01 DC Allergies Allergies Allergies Coded Allergies Type Severity Reaction Last Updated Verified Sulfa (Sulfonamide Antibiotics) Allergy Intermediate 10/31/18 Yes Physical Exam Physical Exam Constitutional: Well developed, well nourished, mild discomfort, non-toxic appearance. [] HENT: Normocephalic, atraumatic, bilateral external ears normal, oropharynx moist, no oral exudates, nose normal. [] Eyes: PERRLA, EOMI, conjunctiva normal, no discharge. [] Neck: Normal range of motion, no tenderness, supple, no stridor. [] Cardiovascular:Heart rate regular rhythm, no murmur [] Lungs & Thorax: Bilateral breath sounds clear to auscultation [] Abdomen: Not examined[] Skin: Warm, dry, no erythema, no rash. [] Back: No tenderness, no CVA tenderness. [] Extremities: No tenderness, no cyanosis, no clubbing, ROM intact, no edema. [] Neurologic: Alert and oriented X 3, normal motor function, normal sensory function, no focal deficits noted. [] Psychologic: Affect normal, judgement normal, mood normal. [] Current Patient Data Vital Signs Vital Signs Date Time Temp Pulse Resp B/P (MAP) Pulse Ox O2 Delivery O2 Flow Rate FiO2 05/10/18 02:25 97.4 74 18 186/86 (119) 97 Room Air 97.4 EKG EKG [] Radiology/Procedures Radiology/Procedures [] Course & Med Decision Making Course & Med Decision Making Pertinent Labs and Imaging studies reviewed. (See chart for details) Medical decision making: Patient with headache like her usual migraine that improved with acetaminophen. Giving additional medicine help with the nausea. Do not see any evidence of meningitis, encephalitis, status migrainous, nor other significant health issue at this time.[] Dragon Disclaimer Dragon Disclaimer This electronic medical record was generated, in whole or in part, using a voice recognition dictation system. Departure Departure Impression: Primary Impression: Headache Disposition: 01 HOME, SELF-CARE Condition: IMPROVED Referrals: MIA FULLER APRN (PCP) Follow-up in 2 days Patient Instructions: Migraine Headache Additional Instructions: Follow-up with your regular doctor in 2 days. At the start of your next migraine try 1/4 teaspoon of patience dissolved in water or juice. Return to the ER if worsening pain or any other concerns. Scripts Metoclopramide Hcl (REGLAN) 10 Mg Tablet 10 MG PO QIDACHS, #30 TAB 0 Refills Prov: EIDENBERG,JERED DO 05/10/18 Meloxicam (MELOXICAM) 7.5 Mg Tablet 7.5 MG PO DAILY, #20 TAB Prov: JERED CABA DO 05/10/18 Problem Qualifiers Primary Impression: Headache Headache type: unspecified Headache chronicity pattern: episodic headache Intractability: not intractable Qualified Codes: R51 - Headache JERED CABA DO May 10, 2018 04:27
[2018-05-10 04:36] VITALS: BP 123/63
[2018-05-10] MEDS ORDERED: ONDANSETRON PF 4 MG/2 ML VIAL. IV ONE (04:45)
== END 2018-05-10 04:51 | disposition home or self-care (01) ==
LOC: ER 02:15
DX: G43.909 Migraine, unspecified, not intractable, without status migrainosus (principal); F32.9 Major depressive disorder, single episode, unspecified; E78.00 Pure hypercholesterolemia, unspecified; I10 Essential (primary) hypertension; E03.9 Hypothyroidism, unspecified; G89.29 Other chronic pain; Z88.2 Allergy status to sulfonamides
CPT/HCPCS: 96374; 96375; 99283; J1885; J2405; 99284

== ENCOUNTER → 2018-06-20 | Outpatient (CLI) | payer OTHER ==
[~2018-06-20] MED LIST changes: +MELO7.5T29 PO; +METO10TA81 PO
--- NOTE | 2018-06-20 11:36 | RAD ---
Right knee, 2 views, 06/20/2018: HISTORY: Knee pain There are mild degenerative changes at the patellofemoral articulation. No fracture or dislocation is identified. There is only slight narrowing of the lateral compartment of the knee joint. No significant joint effusion is seen. IMPRESSION: 1. Mild degenerative change. 2. No acute bony abnormality is detected. Electronically signed by: Malik Villegas MD (06/20/2018 11:33 AM) [facility]
== END | disposition home or self-care (01) ==
LOC: RAD 10:01
PROVIDERS: ATTEND Surgery
DX: M17.11 Unilateral primary osteoarthritis, right knee (principal); M25.562 Pain in left knee
CPT/HCPCS: 73560

== ENCOUNTER 2018-07-27 12:56 | Emergency (ER) | payer OTHER, SELFPAY ==
[~2018-07-27] VITALS: Ht 162.6 cm; Wt 93.0 kg
[2018-07-27] MEDS ORDERED: IV NORMAL SALINE 1000ML BAG 1,000 ML IV ONE (15:30)
[2018-07-27] MEDS ORDERED: PROCHLORPERAZINE 10 MG/2 ML VIAL. IV ONE (15:30)
[2018-07-27] MEDS ORDERED: KETOROLAC 30 MG/ML VIAL. IV ONE (15:30)
[2018-07-27] MEDS ORDERED: diphenhydrAMINE 50 MG/ML VIAL IVP ONE (15:30)
--- NOTE | 2018-07-27 15:30 | PHYS DOC ---
Past Medical History Past Medical History: Cancer, Fibromyalgia, High Cholesterol, Hypertension Additional Past Medical Histor: ovarian cysts, kidney stones, parathyroid tumor, incontenence, cervical CA Past Surgical History: Other Additional Past Surgical Histo: kidney stents, LIEAP, DNC Alcohol Use: None Drug Use: None Adult General Chief Complaint Chief Complaint: MULTIPLE COMPLAINTS HPI HPI Patient is a 47-year-old female who presents to the emergency department for evaluation. She states she has a history of migraine headaches, and states that yesterday evening she developed a gradual onset left-sided headache which is the exactly the same headache that she typically has a migraine headaches. The headache has worsened, and developed into a full born migraine headache. She also reports having nasal congestion, cough, low-grade fever, and a sore throat for the past 2-3 days. She has not had any vomiting, vision changes, numbness, or weakness. There are no alleviating, or exacerbating factors to her symptoms otherwise. Review of Systems Review of Systems Constitutional: Denies fever or chills [] Eyes: Denies change in visual acuity, redness, or eye pain [] HENT: Denies nasal congestion or sore throat [] Respiratory: Denies cough or shortness of breath [] Cardiovascular: No additional information not addressed in HPI [] GI: Denies abdominal pain, nausea, vomiting, bloody stools or diarrhea [] : Denies dysuria or hematuria [] Musculoskeletal: Denies back pain or joint pain [] Integument: Denies rash or skin lesions [] Neurologic: Denies headache, focal weakness or sensory changes [] Endocrine: Denies polyuria or polydipsia [] All other systems were reviewed and found to be within normal limits, except as documented in this note. Current Medications Current Medications Current Medications Medications (Trade) Dose Ordered Sig/Charlotte Start Time Stop Time Status Last Admin Dose Admin Diphenhydramine HCl (Benadryl) 25 mg 1X ONCE 07/27/18 15:30 07/27/18 15:31 DC 07/27/18 15:49 25 MG Ketorolac Tromethamine (Toradol 30mg Vial) 30 mg 1X ONCE 07/27/18 15:30 07/27/18 15:31 DC 07/27/18 15:49 30 MG Prochlorperazine Edisylate (Compazine) 10 mg 1X ONCE 07/27/18 15:30 5/1/19 15:31 DC 07/27/18 15:49 10 MG Sodium Chloride 1,000 ml @ 1,000 mls/hr 1X ONCE 07/27/18 15:30 07/27/18 16:29 DC 07/27/18 15:30 1,000 MLS/HR Allergies Allergies Allergies Coded Allergies Type Severity Reaction Last Updated Verified Sulfa (Sulfonamide Antibiotics) Allergy Intermediate 01/26/18 Yes Physical Exam Physical Exam Constitutional: Well developed, well nourished, no acute distress, non-toxic appearance. [] HENT: Normocephalic, atraumatic, bilateral external ears normal, oropharynx moist, no oral exudates, nose normal. [] Eyes: PERRLA, EOMI, conjunctiva normal, no discharge. [] Neck: Normal range of motion, no tenderness, supple, no stridor. [] Cardiovascular:Heart rate regular rhythm, no murmur [] Lungs & Thorax: Bilateral breath sounds clear to auscultation [] Abdomen: Bowel sounds normal, soft, no tenderness, no masses, no pulsatile masses. [] Skin: Warm, dry, no erythema, no rash. [] Back: No tenderness, no CVA tenderness. [] Extremities: No tenderness, no cyanosis, no clubbing, ROM intact, no edema. [] Neurologic: Alert and oriented X 3, normal motor function, normal sensory function, no focal deficits noted. [] Psychologic: Affect normal, judgement normal, mood normal. [] Current Patient Data Vital Signs Vital Signs Date Time Temp Pulse Resp B/P (MAP) Pulse Ox O2 Delivery O2 Flow Rate FiO2 07/27/18 16:00 87 14 146/75 (98) 96 Room Air 07/27/18 13:10 99.6 99.6 Lab Values Laboratory Tests Test 07/27/18 15:25 Influenza Type A Antigen Negative (NEGATIVE) Influenza Type B Antigen Negative (NEGATIVE) EKG EKG [] Radiology/Procedures Radiology/Procedures ER physician preliminary chest x-ray interpretation: No acute disease.[] Course & Med Decision Making Course & Med Decision Making Pertinent Labs and Imaging studies reviewed. (See chart for details) []Rapid strep is negative. 5:10 PM:Patient remains stable. Her SILVERMAN has resolved. I discussed test results, the need for close follow-up, and return precautions. [place] Disclaimer Dragon Disclaimer This electronic medical record was generated, in whole or in part, using a voice recognition dictation system. Departure Departure Impression: Primary Impression: Migraine Additional Impression: Upper respiratory infection Disposition: HOME, SELF-CARE Condition: STABLE Referrals: MIA FULLER APRN (PCP) Patient Instructions: Migraine Headache, Upper Respiratory Infection, Adult Problem Qualifiers SUSANNE RICKETTS MD July 27, 2018 15:29
--- NOTE | 2018-07-27 15:50 | RAD ---
EXAM: CHEST 1 VIEW History: Cough and fever for 3 weeks COMPARISON: None available. TECHNIQUE: Single portable radiograph of the chest FINDINGS: The cardiac silhouette is unremarkable. The lungs are clear bilaterally. The costophrenic sulci are clear and well demarcated. IMPRESSION: No radiographic evidence of an acute cardiopulmonary process. Electronically signed by: Cyrus Salguero MD (07/27/2018 3:47 PM) [facility]
[2018-07-27 15:59] LABS: INFLUENZA A PATIENT NEGATIVE (NEGATIVE); INFLUENZA B PATIENT NEGATIVE (NEGATIVE)
[2018-07-27 17:00] VITALS: BP 149/71
== END 2018-07-27 17:20 | disposition home or self-care (01) ==
LOC: ER 12:56
DX: G43.909 Migraine, unspecified, not intractable, without status migrainosus (principal); J06.9 Acute upper respiratory infection, unspecified; E78.00 Pure hypercholesterolemia, unspecified; I10 Essential (primary) hypertension; Z87.442 Personal history of urinary calculi; Z88.2 Allergy status to sulfonamides
CPT/HCPCS: 71045; 87070; 87804; 87880; 96374; 96375; 99285; J0780; J1200; J1885; J7030

== ENCOUNTER → 2018-08-18 | Outpatient (CLI) | payer OTHER ==
[2018-07-27 17:00] VITALS: BP 149/71
== END | disposition home or self-care (01) ==
LOC: PF 07:38
PROVIDERS: ATTEND Registered Nurse
DX: M79.7 Fibromyalgia (principal); E78.00 Pure hypercholesterolemia, unspecified; M19.90 Unspecified osteoarthritis, unspecified site; E66.9 Obesity, unspecified; M25.562 Pain in left knee; M25.561 Pain in right knee; E21.3 Hyperparathyroidism, unspecified; N20.0 Calculus of kidney; J42 Unspecified chronic bronchitis; F32.9 Major depressive disorder, single episode, unspecified
CPT/HCPCS: 94010; 94729

== ENCOUNTER 2018-12-12 21:49 | Emergency (ER) | payer MEDICAID, OTHER ==
[~2018-12-12] VITALS: Ht 165.1 cm; Wt 95.3 kg
[2018-12-12 22:33] LABS: BASO # 0.1 x10^3/uL (0.0-0.2); BASO % 0 % (0-3); EOS # 0.3 x10^3/uL (0.0-0.7); EOS % 2 % (0-3); HEMATOCRIT 37.8 % (36.0-47.0); HEMOGLOBIN 12.4 g/dL (12.0-15.5); LYMPH # 1.9 x10^3/uL (1.0-4.8); LYMPH % 11 % (24-48); MEAN CORPUSCULAR HEMOGLOBIN 27 pg (25-35); MEAN CORPUSCULAR HGB CONC 33 g/dL (31-37); MEAN CORPUSCULAR VOLUME 81 fL (79-100); MONO % 6 % (0-9); NEUT # 14.9 x10^3/uL (1.8-7.7); NEUT % 82 % (31-73); PLATELET COUNT 327 x10^3/uL (140-400); RED BLOOD COUNT 4.66 x10^6/uL (3.50-5.40); RED CELL DISTRIBUTION WIDTH 14.5 % (11.5-14.5); WHITE BLOOD COUNT 18.3 x10^3/uL (4.0-11.0)
[2018-12-12 22:42] LABS: CALCIUM 10.9 mg/dL (8.5-10.1); CREATININE 0.7 mg/dL (0.6-1.0); GFR 89.7
[2018-12-12] MEDS ORDERED: DEXAMETHASONE SOD PHOS 20 MG/5 ML VIAL. IV ONE (22:45)
[2018-12-12] MEDS ORDERED: IPRATRPIUM/ALBUTEROL 0.5/2.5MG 3 ML NEBU. NEB ONE (22:45)
[2018-12-12] MEDS ORDERED: IV NORMAL SALINE 1000ML BAG 1,000 ML IV ONE (22:45)
[2018-12-12 22:48] LABS: ALBUMIN 3.6 g/dL (3.4-5.0); ALBUMIN/GLOBULIN RATIO 0.9 (1.0-1.7); MAGNESIUM 1.8 mg/dL (1.8-2.4); TOTAL BILIRUBIN 0.5 mg/dL (0.2-1.0); TOTAL PROTEIN 7.7 g/dL (6.4-8.2)
[2018-12-12 22:56] LABS: CREATINE KINASE 59 U/L (26-192)
[2018-12-12 22:58] LABS: % BANDS 1 % (0-9); % LYMPHS 9 % (24-48); % MONOS 3 % (0-10); % SEGS 87 % (35-66); PLT ESTIMATE ADEQUATE (ADEQUATE)
[2018-12-12 23:13] VITALS: BP 108/59
[2018-12-12] MEDS ORDERED: ONDANSETRON PF 4 MG/2 ML VIAL. IV ONE (23:30)
[2018-12-13 00:09] LABS: BILIRUBIN,URINE SMALL (NEG); CLARITY,URINE CLOUDY; COLOR,URINE AMBER; NITRITE,URINE NEGATIVE (NEG); PH,URINE 5.5; PROTEIN,URINE 30 mg/dL (NEG-TRACE); UROBILINOGEN,URINE 0.2 mg/dL (0.2 mg/dL)
--- NOTE | 2018-12-13 00:15 | PHYS DOC ---
Past Medical History Past Medical History: COPD, Hypertension Additional Past Medical Histor: ovarian cysts, kidney stones, parathyroid tumor, incontenence, cervical CA Past Surgical History: Other Additional Past Surgical Histo: lithotripsy Smoking: Cigarettes Alcohol Use: None Drug Use: None Adult General Chief Complaint Chief Complaint: SHORTNESS OF BREATH HPI HPI 47 y/o female with pmh of COPD presents with 2-3 day history of progressive shortness of breath. Reports smoking history. Denies fever/chills. Reports associated nonproductive cough. Denies leg swelling or calf tenderness. Review of Systems Review of Systems Constitutional: Denies fever or chills Eyes: Denies change in visual acuity, redness, or eye pain HENT: Reports nasal congestion; denies sore throat Respiratory: Reports nonproductive cough, wheezing, and shortness of breath Cardiovascular: Denies chest pain or palpitations GI: Denies abdominal pain, nausea, vomiting, or diarrhea : Denies dysuria or hematuria Musculoskeletal: Denies back pain or joint pain Integument: Denies rash or skin lesions Neurologic: Denies headache, focal weakness or sensory changes Complete systems were reviewed and found to be within normal limits, except as documented in this note. Current Medications Current Medications Current Medications Medications (Trade) Dose Ordered Sig/Charlotte Start Time Stop Time Status Last Admin Dose Admin Albuterol/ Ipratropium (Duoneb) 3 ml 1X ONCE 12/12/18 22:45 12/12/18 22:46 DC 12/12/18 22:34 3 ML Dexamethasone Sodium Phosphate (Decadron) 10 mg 1X ONCE 12/12/18 22:45 12/12/18 22:46 DC 12/12/18 22:43 10 MG Ondansetron HCl (Zofran) 4 mg 1X ONCE 12/12/18 23:30 12/12/18 23:31 DC 12/12/18 23:13 4 MG Sodium Chloride 1,000 ml @ 1,000 mls/hr 1X ONCE 12/12/18 22:45 12/12/18 23:44 DC 12/12/18 22:43 1,000 MLS/HR Allergies Allergies Allergies Coded Allergies Type Severity Reaction Last Updated Verified Sulfa (Sulfonamide Antibiotics) Allergy Intermediate 01/26/18 Yes Physical Exam Physical Exam Constitutional: Well developed, well nourished, no acute distress, non-toxic appearance HENT: Normocephalic, atraumatic, oropharynx moist, nose normal Eyes: Conjunctiva normal, no discharge Neck: Normal range of motion, no tenderness, supple, no meningeal signs Cardiovascular: Heart rate normal and regular rhythm Lungs & Thorax: Bilateral breath sounds equal, diminished at bases, no respiratory distress Abdomen: Soft, no tenderness Skin: Warm, dry, no erythema, no rash Extremities: No tenderness, ROM intact, no edema Neurologic: Alert and oriented X 3, no focal deficits noted Psychologic: Affect normal, judgement normal Current Patient Data Vital Signs Vital Signs Date Time Temp Pulse Resp B/P (MAP) Pulse Ox O2 Delivery O2 Flow Rate FiO2 12/13/18 01:45 92 18 93 Room Air 12/12/18 23:13 108/59 (75) 12/12/18 22:00 97.8 97.8 Lab Values Laboratory Tests Test 12/12/18 22:00 12/12/18 23:23 12/12/18 23:45 12/12/18 23:57 White Blood Count 18.3 x10^3/uL (4.0-11.0) H Red Blood Count 4.66 x10^6/uL (3.50-5.40) Hemoglobin 12.4 g/dL (12.0-15.5) Hematocrit 37.8 % (36.0-47.0) Mean Corpuscular Volume 81 fL (79-100) Mean Corpuscular Hemoglobin 27 pg (25-35) Mean Corpuscular Hemoglobin Concent 33 g/dL (31-37) Red Cell Distribution Width 14.5 % (11.5-14.5) Platelet Count 327 x10^3/uL (140-400) Neutrophils (%) (Auto) 82 % (31-73) H Lymphocytes (%) (Auto) 11 % (24-48) L Monocytes (%) (Auto) 6 % (0-9) Eosinophils (%) (Auto) 2 % (0-3) Basophils (%) (Auto) 0 % (0-3) Neutrophils # (Auto) 14.9 x10^3/uL (1.8-7.7) H Lymphocytes # (Auto) 1.9 x10^3/uL (1.0-4.8) Monocytes # (Auto) 1.0 x10^3/uL (0.0-1.1) Eosinophils # (Auto) 0.3 x10^3/uL (0.0-0.7) Basophils # (Auto) 0.1 x10^3/uL (0.0-0.2) Segmented Neutrophils % 87 % (35-66) H Band Neutrophils % 1 % (0-9) Lymphocytes % 9 % (24-48) L Monocytes % 3 % (0-10) Platelet Estimate Adequate (ADEQUATE) Sodium Level 139 mmol/L (136-145) Potassium Level 4.0 mmol/L (3.5-5.1) Chloride Level 102 mmol/L (98-107) Carbon Dioxide Level 25 mmol/L (21-32) Anion Gap 12 (6-14) Blood Urea Nitrogen 11 mg/dL (7-20) Creatinine 0.7 mg/dL (0.6-1.0) Estimated GFR (Cockcroft-Gault) 89.7 BUN/Creatinine Ratio 16 (6-20) Glucose Level 125 mg/dL (70-99) H Calcium Level 10.9 mg/dL (8.5-10.1) H Magnesium Level 1.8 mg/dL (1.8-2.4) Total Bilirubin 0.5 mg/dL (0.2-1.0) Aspartate Amino Transferase (AST) 12 U/L (15-37) L Alanine Aminotransferase (ALT) 15 U/L (14-59) Alkaline Phosphatase 125 U/L (46-116) H Creatine Kinase 59 U/L (26-192) Creatine Kinase MB (Mass) 1.4 ng/mL (0.0-3.6) Creatine Kinase MB Relative Index % (0-4) Troponin I Quantitative < 0.017 ng/mL (0.000-0.055) NL-Mjo-E-Type Natriuretic Peptide 379 pg/mL (0-124) H Total Protein 7.7 g/dL (6.4-8.2) Albumin 3.6 g/dL (3.4-5.0) Albumin/Globulin Ratio 0.9 (1.0-1.7) L Lactic Acid Level 1.1 mmol/L (0.4-2.0) Urine Collection Type Unknown Urine Color Rosenda Urine Clarity Cloudy Urine pH 5.5 Urine Specific [place] 1.025 Urine Protein 30 mg/dL (NEG-TRACE) Urine Glucose (UA) Negative mg/dL (NEG) Urine Ketones (Stick) Negative mg/dL (NEG) Urine Blood Negative (NEG) Urine Nitrite Negative (NEG) Urine Bilirubin Small (NEG) Urine Urobilinogen Dipstick 0.2 mg/dL (0.2 mg/dL) Urine Leukocyte Esterase Negative (NEG) Urine RBC 1-2 /HPF (0-2) Urine WBC 5-10 /HPF (0-4) Urine Squamous Epithelial Cells Many /LPF Urine Bacteria Few /HPF (0-FEW) Urine Mucus Mod /LPF POC Urine HCG, Qualitative Hcg negative (Negative) Laboratory Tests 12/12/18 22:00 Laboratory Tests 12/12/18 22:00 EKG EKG PROCEDURE: CHEST PA & LATERAL PA and lateral chest x-ray HISTORY: Shortness of breath and cough. COMPARISON: Chest x-ray July 27, 2018. FINDINGS: Heart size normal. Mediastinal silhouette is normal. There are coarse interstitial markings new from the prior exam with a lower lobe greater than upper lobe distribution. No pneumothorax, pulmonary opacities or pleural effusions. Bones unremarkable. IMPRESSION: Pulmonary interstitial infiltrates new from prior x-rays could indicate mild interstitial edema, atypical infection including such as a viral pneumonitis, or acute changes of interstitial lung disease. Electronically signed by: Billy Quintanilla MD (12/13/2018 3:35 AM) [facility] Radiology/Procedures Radiology/Procedures @2237 NSR at 90bpm, NO ST elevation, QRS 86ms, QT/QTc 360/444ms Course & Med Decision Making Course & Med Decision Making Pertinent Labs and Imaging studies reviewed. (See chart for details) Patient presents with history progressive dyspnea with nonproductive cough. Afebrile. Symptomatic treatment provided. Labs obtained and posted to chart. WBC elevated. CXR with increased interstitial markings. Patient stable for discharge home with outpatient follow-up with PCP. Discussed findings and plan with patient, who acknowledges understanding and agreement. Dragon Disclaimer Dragon Disclaimer This electronic medical record was generated, in whole or in part, using a voice recognition dictation system. Departure Departure Impression: Primary Impression: Bronchitis Disposition: 01 HOME, SELF-CARE Condition: IMPROVED Referrals: MIA FULLER APRN (PCP) TAMIA RAMOS MD Patient Instructions: Acute Bronchitis, [id number] Scripts Azithromycin (ZITHROMAX) 250 Mg Tablet 1 PKG PO UD for bronchitis, #6 TAB Take 2 tablets on day 1 and then 1 tablet each day for the next 4 days as directed Prov: SHONDA MONTILLA DO 12/13/18 Prednisone (PREDNISONE) 20 Mg Tablet 2 TAB PO DAILY, #8 TAB Prov: SHONDA MONTILLA DO 12/13/18 Albuterol Sulfate (PROAIR HFA INHALER) 8.5 Gm Hfa.aer.ad 1 PUFF INH PRN Q6HRS PRN for WHEEZING, #1 INHALER 0 Refills Prov: SHONDA MONTILLA DO 12/13/18 SHONDA MONTILLA DO Dec 13, 2018 00:15
[2018-12-13 00:22] LABS: BACTERIA,URINE FEW /HPF (0-FEW); SQUAMOUS EPITHELIAL CELL,UR MANY /LPF
[2018-12-13] MEDS ORDERED: ALBU2.5V8 INH (01:54)
[2018-12-13] MEDS ORDERED: AZIT250T PO (01:54)
[2018-12-13] MEDS ORDERED: PRED20TA PO (01:54)
--- NOTE | 2018-12-13 03:38 | RAD ---
PA and lateral chest x-ray HISTORY: Shortness of breath and cough. COMPARISON: Chest x-ray July 27, 2018. FINDINGS: Heart size normal. Mediastinal silhouette is normal. There are coarse interstitial markings new from the prior exam with a lower lobe greater than upper lobe distribution. No pneumothorax, pulmonary opacities or pleural effusions. Bones unremarkable. IMPRESSION: Pulmonary interstitial infiltrates new from prior x-rays could indicate mild interstitial edema, atypical infection including such as a viral pneumonitis, or acute changes of interstitial lung disease. Electronically signed by: Billy Quintanilla MD (12/13/2018 3:35 AM) [facility]
--- NOTE | 2018-12-13 07:17 | EKG ---
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
== END 2018-12-13 02:00 | disposition home or self-care (01) ==
LOC: ER 21:49
DX: J40 Bronchitis, not specified as acute or chronic (principal); J44.9 Chronic obstructive pulmonary disease, unspecified; I10 Essential (primary) hypertension; F17.210 Nicotine dependence, cigarettes, uncomplicated; Z88.2 Allergy status to sulfonamides
CPT/HCPCS: 36415; 71046; 80053; 81001; 81025; 82553; 83605; 83735; 83880; 84484; 85007; 85025; 87086; 93005; 94640; 96374; 96375; 99285; J1100; J2405; J7030; J7620

== ENCOUNTER 2018-12-16 17:41 | Inpatient (IN) | payer MEDICAID ==
[~2018-12-16] VITALS: Ht 165.1 cm; Wt 98.9 kg
[2018-12-16] MEDS ORDERED: ALBUTEROL SULFATE 2.5 MG/3 ML NEBU. NEB ONE (18:00)
[2018-12-16] MEDS ORDERED: predniSONE 10 MG TABLET PO ONE (18:00)
--- NOTE | 2018-12-16 18:11 | PHYS DOC ---
Past Medical History Past Medical History: COPD, Hypertension Additional Past Medical Histor: ovarian cysts, kidney stones, parathyroid tumor, incontenence, cervical CA Past Surgical History: Other Additional Past Surgical Histo: lithotripsy Alcohol Use: None Drug Use: None Adult General Chief Complaint Chief Complaint: SHORTNESS OF BREATH HPI HPI Patient is a 47 year old female who presents with on December 12, 2018 she arrived at the emergency room with diagnosed with bronchitis. At times she was having shortness of air and tight chest. Patient was given azithromycin of which tomorrow will be Day 5 and prednisone of which today was the last day. She states she only took 2 tablets of the prednisone today. Patient states last night she started having sharp chest pain that went across her chest bilaterally and was worse with cough. Patient states she continues has chest tightness and shortness of breath. Patient states she feels that the shortness of breath has increased the chest tightness has increased. Patient states she's been using the inhaler but is not working. Patient states she smoked 3 cigarettes today. Patient is 95% on room air. Patient states her cough remains nonproductive. Rates her pain a 6 out of 10 in her chest. Review of Systems Review of Systems Constitutional: Denies fever or chills [] Respiratory: cough or shortness of breath [] Cardiovascular: Bilateral sharp chest pain All other systems were reviewed and found to be within normal limits, except as documented in this note. Current Medications Current Medications Current Medications Medications (Trade) Dose Ordered Sig/Charlotte Start Time Stop Time Status Last Admin Dose Admin Albuterol Sulfate (Ventolin Neb Soln) 10 mg 1X ONCE 12/16/18 18:30 12/16/18 18:31 DC 12/16/18 18:30 10 MG Albuterol/ Ipratropium (Duoneb) 3 ml 1X ONCE 12/16/18 18:15 12/16/18 18:16 DC 12/16/18 18:11 3 ML Fentanyl Citrate (Fentanyl 2ml Vial) 50 mcg 1X ONCE 12/16/18 19:15 12/16/18 19:16 DC 12/16/18 19:37 50 MCG Prednisone (Prednisone) 20 mg 1X ONCE 12/16/18 18:00 12/16/18 18:06 DC 12/16/18 18:34 20 MG Sodium Chloride 1,000 ml @ 1,000 mls/hr 1X ONCE 12/16/18 19:15 12/16/18 20:14 DC 12/16/18 19:37 1,000 MLS/HR Allergies Allergies Allergies Coded Allergies Type Severity Reaction Last Updated Verified Sulfa (Sulfonamide Antibiotics) Allergy Intermediate 01/26/18 Yes Physical Exam Physical Exam Constitutional: Well developed, well nourished, no acute distress, non-toxic appearance. [] Cardiovascular:Heart rate regular rhythm, no murmur [] Lungs & Thorax: Bilateral breath sounds diminished with right lobe wheezes to auscultation [] Skin: Warm, dry, no erythema, no rash. [] Extremities: No tenderness, no cyanosis, no clubbing, ROM intact, no edema. [] Neurologic: Alert and oriented X 3, normal motor function, normal sensory function, no focal deficits noted. [] Psychologic: Affect normal, judgement normal, mood normal. [] Current Patient Data Vital Signs Vital Signs Date Time Temp Pulse Resp B/P (MAP) Pulse Ox O2 Delivery O2 Flow Rate FiO2 12/16/18 19:00 74 20 131/62 (85) 100 1 hour neb 12/16/18 18:00 98.2 98.2 Lab Values Laboratory Tests Test 12/16/18 18:38 12/16/18 19:28 White Blood Count 23.0 x10^3/uL (4.0-11.0) H Red Blood Count 4.61 x10^6/uL (3.50-5.40) Hemoglobin 12.1 g/dL (12.0-15.5) Hematocrit 37.7 % (36.0-47.0) Mean Corpuscular Volume 82 fL (79-100) Mean Corpuscular Hemoglobin 26 pg (25-35) Mean Corpuscular Hemoglobin Concent 32 g/dL (31-37) Red Cell Distribution Width 14.9 % (11.5-14.5) H Platelet Count 365 x10^3/uL (140-400) Neutrophils (%) (Auto) 75 % (31-73) H Lymphocytes (%) (Auto) 12 % (24-48) L Monocytes (%) (Auto) 7 % (0-9) Eosinophils (%) (Auto) 5 % (0-3) H Basophils (%) (Auto) 1 % (0-3) Neutrophils # (Auto) 17.2 x10^3/uL (1.8-7.7) H Lymphocytes # (Auto) 2.8 x10^3/uL (1.0-4.8) Monocytes # (Auto) 1.6 x10^3/uL (0.0-1.1) H Eosinophils # (Auto) 1.2 x10^3/uL (0.0-0.7) H Basophils # (Auto) 0.1 x10^3/uL (0.0-0.2) Segmented Neutrophils % 71 % (35-66) H Band Neutrophils % 6 % (0-9) Lymphocytes % 12 % (24-48) L Monocytes % 7 % (0-10) Eosinophils % 4 % (0-5) Platelet Estimate Adequate (ADEQUATE) Large Platelets Few Sodium Level 140 mmol/L (136-145) Potassium Level 4.3 mmol/L (3.5-5.1) Chloride Level 105 mmol/L (98-107) Carbon Dioxide Level 29 mmol/L (21-32) Anion Gap 6 (6-14) Blood Urea Nitrogen 17 mg/dL (7-20) Creatinine 0.8 mg/dL (0.6-1.0) Estimated GFR (Cockcroft-Gault) 76.9 BUN/Creatinine Ratio 21 (6-20) H Glucose Level 98 mg/dL (70-99) Calcium Level 10.1 mg/dL (8.5-10.1) Total Bilirubin 0.2 mg/dL (0.2-1.0) Aspartate Amino Transferase (AST) 6 U/L (15-37) L Alanine Aminotransferase (ALT) 12 U/L (14-59) L Alkaline Phosphatase 113 U/L (46-116) Troponin I Quantitative < 0.017 ng/mL (0.000-0.055) HK-Gjr-V-Type Natriuretic Peptide 543 pg/mL (0-124) H Total Protein 7.2 g/dL (6.4-8.2) Albumin 3.3 g/dL (3.4-5.0) L Albumin/Globulin Ratio 0.8 (1.0-1.7) L Lactic Acid Level 0.7 mmol/L (0.4-2.0) Laboratory Tests 12/16/18 18:38 Laboratory Tests 12/16/18 18:38 EKG EKG Sinus Rhythm and no STEMI[] Interpretation Time: [address] Martinez Radiology/Procedures Radiology/Procedures [] Course & Med Decision Making Course & Med Decision Making Patient is a 47 year old female who presents with on December 12, 2018 she arrived at the emergency room with diagnosed with bronchitis. At times she was having shortness of air and tight chest. Patient was given azithromycin of which tomorrow will be Day 5 and prednisone of which today was the last day. She states she only took 2 tablets of the prednisone today. Patient states last night she started having sharp chest pain that went across her chest bilaterally and was worse with cough. Patient states she continues has chest tightness and shortness of breath. Patient states she feels that the shortness of breath has increased the chest tightness has increased. Patient states she's been using the inhaler but is not working. Patient states she smoked 3 cigarettes today. Patient is 95% on room air. Patient states her cough remains nonproductive. Rates her pain a 6 out of 10 in her chest. Alert and oriented. Speaks in full clear sentences. Lungs are diminished in all lobes with wheezing heard mostly in the right lung lobe. Patient's respirations are 24. Skin pink warm and dry. Patient was in some respiratory distress especially when she is up and trying to walk. Patient was wheeled back to her room. Afebrile. Denies any nausea, vomiting, diarrhea, numbness or tingling, headache, dizziness, syncope. No extremity swelling. Xray from 12/12/18 shows Pulmonary interstitial infiltrates new from prior x-rays could indicate mild interstitial edema, atypical infection including such as a viral pneumonitis, or acute changes of interstitial lung disease. 1828: Patient's lungs sound slightly better after the first DuoNeb. Patient is given hour-long DuoNeb. Patient states she is not feeling much better. Patient's blood gases show a PO2 of 58.4 and a S O2 of 90.7%. Patient is put on 2 L of oxygen to help with comfort. I have spoken to Dr Vazquez and the patient is admitted. Patient states she is feeling better after 1 hour long breathing treatment. Patient is stable and in no distress. Dragon Disclaimer Dragon Disclaimer This electronic medical record was generated, in whole or in part, using a voice recognition dictation system. Departure Departure Impression: Primary Impression: COPD exacerbation Disposition: ADMITTED INPATIENT Admitting Physician: ALDO Condition: STABLE Referrals: MIA FULLER APRN (PCP) MARTHA CABRERA APRN Dec 16, 2018 18:11
[2018-12-16] MEDS ORDERED: IPRATRPIUM/ALBUTEROL 0.5/2.5MG 3 ML NEBU. NEB ONE (18:15)
[2018-12-16] MEDS ORDERED: ALBUTEROL SULFATE 2.5 MG/3 ML NEBU. ONE (18:24)
[2018-12-16] MEDS ORDERED: ALBUTEROL SULFATE 2.5 MG/3 ML NEBU. CONT NEB ONE (18:30)
[2018-12-16 18:50] LABS: BASO # 0.1 x10^3/uL (0.0-0.2); BASO % 1 % (0-3); EOS # 1.2 x10^3/uL (0.0-0.7); EOS % 5 % (0-3); HEMATOCRIT 37.7 % (36.0-47.0); HEMOGLOBIN 12.1 g/dL (12.0-15.5); LYMPH # 2.8 x10^3/uL (1.0-4.8); LYMPH % 12 % (24-48); MEAN CORPUSCULAR HEMOGLOBIN 26 pg (25-35); MEAN CORPUSCULAR HGB CONC 32 g/dL (31-37); MEAN CORPUSCULAR VOLUME 82 fL (79-100); MONO # 1.6 x10^3/uL (0.0-1.1); MONO % 7 % (0-9); NEUT # 17.2 x10^3/uL (1.8-7.7); NEUT % 75 % (31-73); PLATELET COUNT 365 x10^3/uL (140-400); RED BLOOD COUNT 4.61 x10^6/uL (3.50-5.40); RED CELL DISTRIBUTION WIDTH 14.9 % (11.5-14.5)
[2018-12-16 18:56] LABS: CALCIUM 10.1 mg/dL (8.5-10.1); CREATININE 0.8 mg/dL (0.6-1.0); GFR 76.9; POTASSIUM 4.3 mmol/L (3.5-5.1)
[2018-12-16 19:02] LABS: ALBUMIN 3.3 g/dL (3.4-5.0); ALBUMIN/GLOBULIN RATIO 0.8 (1.0-1.7); TOTAL BILIRUBIN 0.2 mg/dL (0.2-1.0); TOTAL PROTEIN 7.2 g/dL (6.4-8.2)
[2018-12-16] MEDS ORDERED: IV NORMAL SALINE 1000ML BAG 1,000 ML IV ONE (19:15)
[2018-12-16] MEDS ORDERED: fentaNYL PF VIAL 100 MCG/2 ML VIAL IV ONE (19:15)
[2018-12-16] MEDS ORDERED: ACETAMINOPHEN 325 MG TABLET. PO PRN (19:45)
[2018-12-16] MEDS ORDERED: ONDANSETRON PF 4 MG/2 ML VIAL. IV PRN (19:45)
[2018-12-16] MEDS: IPRATRPIUM/ALBUTEROL 0.5/2.5MG 3 ML NEBU. NEB SCH (20:00)
[2018-12-16 20:06] LABS: % BANDS 6 % (0-9); % EOS 4 % (0-5); % LYMPHS 12 % (24-48); % MONOS 7 % (0-10); % SEGS 71 % (35-66)
[2018-12-16 20:07] LABS: PLT ESTIMATE ADEQUATE (ADEQUATE)
[2018-12-16] MEDS ORDERED: DOXYCYCLINE HYCLATE 100 MG in IV DEXTROSE 5% 100ML 100 ML IV ONE (20:30)
--- NOTE | 2018-12-16 21:04 | NUR ---
The patient, MARSHA TRIVEDI, 47 y/o, F admitted by ARTUR HUA MD, was given written information regarding hospital policies, unit procedures and contact persons. Valuables were checked and left with her.
[2018-12-16 21:16] VITALS: BP 134/80
[2018-12-16] MEDS ORDERED: TRAM50TA PO (22:11)
[2018-12-16 23:30] VITALS: BP 150/62
[2018-12-16] MEDS ORDERED: ALBUTEROL SULFATE 2.5 MG/3 ML NEBU. NEB PRN (23:30)
[2018-12-16] MEDS: ALBUTEROL SULFATE 2.5 MG/3 ML NEBU. NEB PRN (23:30)
[2018-12-17] MEDS ORDERED: IBUP-1060 PO (01:20)
[2018-12-17] MEDS ORDERED: CYCL10TA2 PO (01:33)
[2018-12-17] MEDS ORDERED: AMIT25TA PO (01:41)
[2018-12-17] MEDS ORDERED: GABA600T7 PO (01:41)
[2018-12-17] MEDS: fentaNYL PF VIAL 100 MCG/2 ML VIAL IV PRN ×3 (02:13→18:07)
[2018-12-17] MEDS: traMADol 50 MG TABLET PO PRN (02:14)
[2018-12-17] MEDS: AMITRIPTYLINE HCL 25 MG TABLET. PO PRN ×2 (02:14→20:49)
[2018-12-17] MEDS: CYCLOBENZAPRINE 10 MG TABLET. PO PRN (02:14)
[2018-12-17] MEDS ORDERED: IBUPROFEN 400 MG TABLET. PO ONE (02:15)
[2018-12-17] MEDS ORDERED: GABAPENTIN 300 MG CAPSULE. PO ONE (02:15)
[2018-12-17 03:39] VITALS: BP 142/73
--- NOTE | 2018-12-17 03:43 | RAD ---
PA and lateral chest x-rays COMPARISON: Chest x-ray December 12, 2018. HISTORY: Shortness of breath and chest pain. FINDINGS: Heart size normal. Mediastinal silhouette is normal. No pneumothorax. No pleural effusions. Mild coarse interstitial markings are stable. Bones are unremarkable. IMPRESSION: Stable exam. Electronically signed by: Billy Quintanilla MD (12/17/2018 3:41 AM) [facility]
[2018-12-17 07:50] VITALS: BP 159/88
[2018-12-17] MEDS: IPRATRPIUM/ALBUTEROL 0.5/2.5MG 3 ML NEBU. NEB SCH ×4 (08:34→18:28)
[2018-12-17] MEDS: NICOTINE 21MG PATCH. TD PRN (09:24)
[2018-12-17] MEDS: METOPROLOL TART IMMED RELEASE 25 MG TABLET. PO SCH ×2 (09:24→20:43)
[2018-12-17] MEDS: IBUPROFEN 400 MG TABLET. PO SCH ×3 (09:24→18:04)
[2018-12-17] MEDS: DULoxetine HCL 30 MG CAPSULE.DR PO SCH (09:24)
[2018-12-17] MEDS: GABAPENTIN 300 MG CAPSULE. PO SCH ×3 (09:26→20:43)
--- NOTE | 2018-12-17 10:32 | PDOC1 ---
History and Physical Date of Admission Date of Admission DATE: 12/17/18 TIME: 10:31 Identification/Chief Complaint Chief Complaint presents with on December 12, 2018 she arrived at the emergency room with diagnosed with bronchitis. At times she was having shortness of air and tight chest. Patient was given azithromycin of which 12/17 will be Day 5 and prednisone of which 12/16 was the last day. She states she only took 2 tablets of the prednisone 12/16. Patient states last night she started having sharp chest pain that went across her chest bilaterally and was worse with cough. Patient states she continues has chest tightness and shortness of breath. Patient states she feels that the shortness of breath has increased the chest tightness has increased. Patient states she's been using the inhaler but is not working. Patient states she smoked 3 cigarettes 12/16 Past Medical History Past Medical History PAST MEDICAL HISTORY: Renal stones, depression, fibromyalgia, hyperlipidemia, kidney infection, bulging disk, cervical cancer, vitamin D deficiency, chronic pain, D&C, left breast cyst, lithotripsy, previous cystoscopy. ALLERGIES: None. FAMILY HISTORY: Renal stones and hypertension. SOCIAL HISTORY: She does not drink, smoke or take drugs. MEDICATIONS: Reviewed, please refer to the MRAD. Past Medical History Past Medical History: COPD, Hypertension Additional Past Medical Histor: ovarian cysts, kidney stones, parathyroid tumor, incontenence, cervical CA Past Surgical History: Other Additional Past Surgical Histo: lithotripsy Alcohol Use: None Drug Use: None FHX OBESITY Past Surgical History Past Surgical History: Other Family History Family History: High Cholestrol Social History Smoke: <1 pack per day ALCOHOL: none Drugs: None Current Medications Current Medications Current Medications Albuterol Sulfate (Ventolin Neb Soln) 2.5 mg 1X ONCE NEB ; Start 12/16/18 at 18:00; Stop 12/16/18 at 18:01; Status Cancel Prednisone (Prednisone) 20 mg 1X ONCE PO Last administered on 12/16/18at 18:34; Start 12/16/18 at 18:00; Stop 12/16/18 at 18:06; Status DC Albuterol/ Ipratropium (Duoneb) 3 ml 1X ONCE NEB Last administered on 12/16/18at 18:11; Start 12/16/18 at 18:15; Stop 12/16/18 at 18:16; Status DC Albuterol Sulfate (Ventolin Neb Soln) 2.5 mg STK-MED ONCE .ROUTE ; Start 12/16/18 at 18:24; Stop 12/16/18 at 18:24; Status DC Albuterol Sulfate (Ventolin Neb Soln) 10 mg 1X ONCE CONT NEB Last administered on 12/16/18at 18:30; Start 12/16/18 at 18:30; Stop 12/16/18 at 18:31; Status DC Sodium Chloride 1,000 ml @ 1,000 mls/hr 1X ONCE IV Last administered on 12/16/18at 19:37; Start 12/16/18 at 19:15; Stop 12/16/18 at 20:14; Status DC Fentanyl Citrate (Fentanyl 2ml Vial) 50 mcg 1X ONCE IV Last administered on 12/16/18at 19:37; Start 12/16/18 at 19:15; Stop 12/16/18 at 19:16; Status DC Doxycycline Hyclate 100 mg/ Dextrose 100 ml @ 50 mls/hr 1X ONCE IV Last administered on 12/16/18at 20:06; Start 12/16/18 at 20:30; Stop 12/16/18 at 22:29; Status DC Ondansetron HCl (Zofran) 4 mg PRN Q8HRS PRN IV NAUSEA/VOMITING Last administered on 12/17/18at 02:15; Start 12/16/18 at 19:45; Stop 12/17/18 at 19:44 Fentanyl Citrate (Fentanyl 2ml Vial) 50 mcg PRN Q1HR PRN IV PAIN Last administered on 12/17/18at 02:15; Start 12/16/18 at 19:45; Stop 12/17/18 at 19:44 Acetaminophen (Tylenol) 650 mg PRN Q4HRS PRN PO FEVER; Start 12/16/18 at 19:45; Stop 12/17/18 at 19:44 Albuterol/ Ipratropium (Duoneb) 3 ml RTQID NEB Last administered on 12/17/18at 08:34; Start 12/16/18 at 20:00; Stop 12/17/18 at 19:59 Albuterol Sulfate (Ventolin Neb Soln) 2.5 mg PRN Q4HRS PRN NEB SHORTNESS OF BREATH; Start 12/16/18 at 23:30; Status UNV Albuterol Sulfate (Ventolin Neb Soln) 2.5 mg PRN Q4HRS PRN NEB SHORTNESS OF BREATH Last administered on 12/17/18at 00:00; Start 12/16/18 at 23:30 Amitriptyline HCl (Elavil) 25 mg QHS PO ; Start 12/17/18 at 21:00; Stop 12/17/18 at 02:00; Status DC Cyclobenzaprine HCl (Flexeril) 10 mg PRN TID PRN PO MUSCLE SPASMS Last administered on 12/17/18 02:15; Start 12/17/18 at 02:00 Metoprolol Tartrate (Lopressor) 25 mg BID PO Last administered on 12/17/18 09:26; Start 12/17/18 at 09:00 Tramadol HCl (Ultram) 50 mg PRN BID PRN PO PAIN Last administered on 12/17/18 02:15; Start 12/17/18 at 02:00 Duloxetine HCl (Cymbalta) 60 mg DAILY PO Last administered on 12/17/18 09:26; Start 12/17/18 at 09:00 Gabapentin (Neurontin) 300 mg TID PO Last administered on 12/17/18 09:26; Start 12/17/18 at 09:00 Ibuprofen (Motrin) 800 mg TIDWMEALS PO Last administered on 12/17/18 09:26; Start 12/17/18 at 08:00 Atorvastatin Calcium (Lipitor) 5 mg HS PO ; Start 12/17/18 at 21:00 Amitriptyline HCl (Elavil) 25 mg PRN QHS PRN PO INSOMNIA Last administered on 12/17/18 02:15; Start 12/17/18 at 02:00 Ibuprofen (Motrin) 800 mg 1X ONCE PO Last administered on 12/17/18 02:15; Start 12/17/18 at 02:15; Stop 12/17/18 at 02:16; Status DC Gabapentin (Neurontin) 300 mg 1X ONCE PO Last administered on 12/17/18 02:15; Start 12/17/18 at 02:15; Stop 12/17/18 at 02:16; Status DC Nicotine (Nicoderm Cq 21mg) 1 patch PRN DAILY PRN TD SMOKING CESSATION Last administered on 9/21/19at 09:26; Start 12/17/18 at 02:30 Active Scripts Active Proair Hfa Inhaler (Albuterol Sulfate) 8.5 Gm Hfa.aer.ad 1 Puff INH PRN Q6HRS PRN Reglan (Metoclopramide Hcl) 10 Mg Tablet 10 Mg PO QIDACHS Ondansetron Odt (Ondansetron) 4 Mg Tab.rapdis 1 Tab PO PRN Q6-8HRS Proair Hfa Inhaler (Albuterol Sulfate) 8.5 Gm Hfa.aer.ad 1 Puff INH PRN Q6HRS PRN Reported Amitriptyline Hcl 25 Mg Tablet 1 Tab PO QHS Gabapentin 600 Mg Tablet 300 Mg PO TID Cyclobenzaprine Hcl 10 Mg Tablet 1 Tab PO TID Ibuprofen 800 Mg Tablet 800 Mg PO TID Tramadol Hcl 50 Mg Tablet 50 Mg PO BID PRN Cymbalta (Duloxetine Hcl) 60 Mg Capsule.dr 1 Cap PO DAILY Lovastatin 20 Mg Tablet 1 Tab PO DAILY Metoprolol Tartrate 25 Mg Tablet 1 Tab PO BID Allergies Allergies: Coded Allergies: Sulfa (Sulfonamide Antibiotics) (Verified Allergy, Intermediate, 01/26/18) ROS Review of System Review of Systems Review of Systems Constitutional: Denies fever or chills [] Respiratory: cough or shortness of breath [] Cardiovascular: Bilateral sharp chest pain 14 PT systems were reviewed and found to be within normal limits, except as documented PSYCHOLOGICAL ROS: No: Anxiety, Behavioral Disorder, Concentration difficultie, Decreased libido, Depression, Disorientation, Hallucinations, Hostility, Irritablity, Memory difficulties, Mood Swings, Obsessive thoughts, Physical abus e, Sexual abuse, Sleep disturbances, Suicidal ideation, Other HEENT: No: Heacaches, Visual Changes, Hearing change, Nasal congestion, Nasal discharge, Oral lesions, Sinus pain, Sore Throat, Epistaxis, Sneezing, Snoring, Tinnitus, Vertigo, Vocal changes, Other Hematological and Lymphatic: No: Bleeding Problems, Blood Clots, Blood Transfusions, Brusing, Night Sweats, Pallor, Swollen Lymph Nodes, Other ENDOCRINE: No: Breast Changes, Galactorrhea, Hair Pattern Changes, Hot Flashes, Malaise/lethargy, Mood Swings, Palpitations, Polydipsia/polyuria, Skin Changes, Temperature Intolerance, Unexpected Weight Changes, Other Respiratory: YES: Cough, Shortness of breath, SOB with excertion Genitourinary: No Dysuria, No Frequency, No Incontinence, No Hematuria, No Retention, No Discharge, No Urgency, No Pain, No Flank Pain, No Other, No , No , No , No , No , No , No Musculoskeletal: No Gait Disturbance, No Joint Pain, No Joint Stiffness, No Joint Swelling, No Muscle Pain, No Muscular Weakness, No Pain In:, No Swelling In:, No Other Skin: No Dry Skin, No Eczema, No Hair Changes, No Lumps, No Mole Changes, No Mottling, No Nail Changes, No Pruritus, No Rash, No Skin Lesion Changes, No Other, No Acne Physical Exam Physical Exam Physical Exam Physical Exam Constitutional: Well developed, well nourished, no acute distress, non-toxic appearance. [] HENT: Normocephalic, atraumatic, bilateral external ears normal, bilateral TMs are dull, no erythema or bulging, posterior vertex slightly erythemic no swelling or exudates oropharynx moist, no oral exudates, nose congested and boggy, clear thin clear rhinorrhea Eyes: PERRLA, EOMI, conjunctiva normal, no discharge. [] Neck: Normal range of motion, no tenderness, supple, no stridor. [No adenopathy] Cardiovascular:Heart rate regular rhythm, no murmur [] Lungs & Thorax: Bilateral breath sounds clear to auscultation, no respiratory distress or retractions, no cough Abdomen: Bowel sounds normal, soft, no tenderness, no masses, no pulsatile masses. [] Skin: Warm, dry, no erythema, no rash. [] Neurologic: Alert and oriented X 3, normal motor function, normal sensory function, no focal deficits noted. [] Psychologic: Affect normal, judgement normal, mood normal. [] General: Alert, Oriented X3, Cooperative HEENT: Atraumatic Heart: RRR Breasts: Not examined Rectal Exam: not examined PELVIC: Examination not indicated Extremities: No cyanosis Neuro: Normal speech, Strength at 5/5 X4 ext, Cranial nerves 3-12 NL Psych/Mental Status: Mental status NL, Mood NL Vitals Vitals Vital Signs Date Time Temp Pulse Resp B/P (MAP) Pulse Ox O2 Delivery O2 Flow Rate FiO2 9/21/19 09:26 73 159/88 12/17/18 08:36 96 Room Air 12/17/18 07:50 97.6 20 2.0 97.6 Labs Labs Laboratory Tests Test 12/16/18 18:38 12/16/18 19:28 12/16/18 23:00 White Blood Count 23.0 x10^3/uL (4.0-11.0) Red Blood Count 4.61 x10^6/uL (3.50-5.40) Hemoglobin 12.1 g/dL (12.0-15.5) Hematocrit 37.7 % (36.0-47.0) Mean Corpuscular Volume 82 fL (79-100) Mean Corpuscular Hemoglobin 26 pg (25-35) Mean Corpuscular Hemoglobin Concent 32 g/dL (31-37) Red Cell Distribution Width 14.9 % (11.5-14.5) Platelet Count 365 x10^3/uL (140-400) Neutrophils (%) (Auto) 75 % (31-73) Lymphocytes (%) (Auto) 12 % (24-48) Monocytes (%) (Auto) 7 % (0-9) Eosinophils (%) (Auto) 5 % (0-3) Basophils (%) (Auto) 1 % (0-3) Neutrophils # (Auto) 17.2 x10^3/uL (1.8-7.7) Lymphocytes # (Auto) 2.8 x10^3/uL (1.0-4.8) Monocytes # (Auto) 1.6 x10^3/uL (0.0-1.1) Eosinophils # (Auto) 1.2 x10^3/uL (0.0-0.7) Basophils # (Auto) 0.1 x10^3/uL (0.0-0.2) Segmented Neutrophils % 71 % (35-66) Band Neutrophils % 6 % (0-9) Lymphocytes % 12 % (24-48) Monocytes % 7 % (0-10) Eosinophils % 4 % (0-5) Platelet Estimate Adequate (ADEQUATE) Large Platelets Few Sodium Level 140 mmol/L (136-145) Potassium Level 4.3 mmol/L (3.5-5.1) Chloride Level 105 mmol/L (98-107) Carbon Dioxide Level 29 mmol/L (21-32) Anion Gap 6 (6-14) Blood Urea Nitrogen 17 mg/dL (7-20) Creatinine 0.8 mg/dL (0.6-1.0) Estimated GFR (Cockcroft-Gault) 76.9 BUN/Creatinine Ratio 21 (6-20) Glucose Level 98 mg/dL (70-99) Calcium Level 10.1 mg/dL (8.5-10.1) Total Bilirubin 0.2 mg/dL (0.2-1.0) Aspartate Amino Transf (AST/SGOT) 6 U/L (15-37) Alanine Aminotransferase (ALT/SGPT) 12 U/L (14-59) Alkaline Phosphatase 113 U/L (46-116) Troponin I Quantitative < 0.017 ng/mL (0.000-0.055) < 0.017 ng/mL (0.000-0.055) VJ-Ffs-L-Type Natriuretic Peptide 543 pg/mL (0-124) Total Protein 7.2 g/dL (6.4-8.2) Albumin 3.3 g/dL (3.4-5.0) Albumin/Globulin Ratio 0.8 (1.0-1.7) Lactic Acid Level 0.7 mmol/L (0.4-2.0) Laboratory Tests Test 12/16/18 18:38 12/16/18 19:28 12/16/18 23:00 White Blood Count 23.0 x10^3/uL (4.0-11.0) Red Blood Count 4.61 x10^6/uL (3.50-5.40) Hemoglobin 12.1 g/dL (12.0-15.5) Hematocrit 37.7 % (36.0-47.0) Mean Corpuscular Volume 82 fL (79-100) Mean Corpuscular Hemoglobin 26 pg (25-35) Mean Corpuscular Hemoglobin Concent 32 g/dL (31-37) Red Cell Distribution Width 14.9 % (11.5-14.5) Platelet Count 365 x10^3/uL (140-400) Neutrophils (%) (Auto) 75 % (31-73) Lymphocytes (%) (Auto) 12 % (24-48) Monocytes (%) (Auto) 7 % (0-9) Eosinophils (%) (Auto) 5 % (0-3) Basophils (%) (Auto) 1 % (0-3) Neutrophils # (Auto) 17.2 x10^3/uL (1.8-7.7) Lymphocytes # (Auto) 2.8 x10^3/uL (1.0-4.8) Monocytes # (Auto) 1.6 x10^3/uL (0.0-1.1) Eosinophils # (Auto) 1.2 x10^3/uL (0.0-0.7) Basophils # (Auto) 0.1 x10^3/uL (0.0-0.2) Segmented Neutrophils % 71 % (35-66) Band Neutrophils % 6 % (0-9) Lymphocytes % 12 % (24-48) Monocytes % 7 % (0-10) Eosinophils % 4 % (0-5) Platelet Estimate Adequate (ADEQUATE) Large Platelets Few Sodium Level 140 mmol/L (136-145) Potassium Level 4.3 mmol/L (3.5-5.1) Chloride Level 105 mmol/L (98-107) Carbon Dioxide Level 29 mmol/L (21-32) Anion Gap 6 (6-14) Blood Urea Nitrogen 17 mg/dL (7-20) Creatinine 0.8 mg/dL (0.6-1.0) Estimated GFR (Cockcroft-Gault) 76.9 BUN/Creatinine Ratio 21 (6-20) Glucose Level 98 mg/dL (70-99) Calcium Level 10.1 mg/dL (8.5-10.1) Total Bilirubin 0.2 mg/dL (0.2-1.0) Aspartate Amino Transf (AST/SGOT) 6 U/L (15-37) Alanine Aminotransferase (ALT/SGPT) 12 U/L (14-59) Alkaline Phosphatase 113 U/L (46-116) Troponin I Quantitative < 0.017 ng/mL (0.000-0.055) < 0.017 ng/mL (0.000-0.055) ST-Xpl-F-Type Natriuretic Peptide 543 pg/mL (0-124) Total Protein 7.2 g/dL (6.4-8.2) Albumin 3.3 g/dL (3.4-5.0) Albumin/Globulin Ratio 0.8 (1.0-1.7) Lactic Acid Level 0.7 mmol/L (0.4-2.0) Images Images REASON: Short of breath, chest pain PROCEDURE: CHEST PA & LATERAL PA and lateral chest x-rays COMPARISON: Chest x-ray December 12, 2018. HISTORY: Shortness of breath and chest pain. FINDINGS: Heart size normal. Mediastinal silhouette is normal. No pneumothorax. No pleural effusions. Mild coarse interstitial markings are stable. Bones are unremarkable. IMPRESSION: Stable exam. Electronically signed by: Billy Quintanilla MD (12/17/2018 3:41 AM) [facility] VTE Prophylaxis Ordered VTE Prophylaxis Devices: Yes VTE Pharmacological Prophylaxi: Yes Assessment/Plan Assessment/Plan Impression: COPD exacerbation, ACUTE MORBID OBESITY TOBACCO ABUSE DISORDER ACUTE HYPOXIC RESP FAILURE DEPRESSION HYPERTENSION ADMITTED DUONEBS QID TELE BED HOME MEDS DVT PROPHYLAXIS GI PROPHYLAXIS 58 MIN PT EXAM, CHART REVIEW, > 50% OF TIME SPENT WITH EXAM, CHART REVIEW, PT CARE COORDINATION LUPE RECIO MD Dec 17, 2018 10:32
--- NOTE | 2018-12-17 10:46 | EKG ---
[facility] [address] [place] [id number] Test Date: 2018-12-16 Test Time: 17:52:09 Pat Name: MARSHA TRIVEDI Department: Room: Gender: F Corrective Therapist: : [id number] Requested By: MARTHA CABRERA Order Number: [id number] Reading MD: Measurements Intervals [place] Rate: 74 P: 46 SC: 140 QRS: -8 QRSD: 90 T: 13 QT: 362 QTc: 402 Interpretive Statements SINUS RHYTHM LEFTWARD AXIS QRS(T) CONTOUR ABNORMALITY CONSIDER ANTEROLATERAL MYOCARDIAL DAMAGE POSSIBLY ABNORMAL ECG RI6.01 Unconfirmed report No previous ECG available for comparison
[2018-12-17 11:19] VITALS: BP 123/57
[2018-12-17] MEDS: PANTOPRAZOLE 40 MG TABLET.DR. PO SCH (11:49)
[2018-12-17] MEDS: predniSONE 10 MG TABLET PO SCH (11:49)
[2018-12-17] MEDS: ENOXAPARIN 40 MG/0.4 ML SYRINGE. SQ SCH (11:50)
[2018-12-17 13:22] LABS: BASE EXCESS COOX -1 mmol/L (-3-3); HCO3 COOX 24 mmol/L (21-28); METHEMOGLOBIN 0.3 % (0.0-1.9); OXYHEMOGLOBIN 92.5 %; PCO2 COOX 43 mmHg (35-46); PO2 COOX 70 mmHg (75-108); SAT O2 COOX 93 % (92-99)
[2018-12-17 15:30] VITALS: BP 141/66
--- NOTE | 2018-12-17 18:23 | CONS ---
DATE OF CONSULTATION: PULMONARY CONSULTATION HISTORY OF PRESENT ILLNESS: The patient is a 47-year-old female that I am asked to see for shortness of breath. The patient notes that she had asthma as a child. She had frequent bouts of what she describes as pneumonia and recurrent bronchitis. She started smoking tobacco at the age of 17 and unfortunately continues to smoke. Her tobacco consumption has been variable, but in recent years, she has smoked an average of 2 packs of cigarettes per day. She does have chronic shortness of breath. She is unable to describe more specifically the limitations that she has due to her shortness of breath. She started developing more problems approximately one week ago. She had marked increase in her shortness of breath. She had fever up to 102. She had a nonproductive cough. She came to the [facility] Emergency Room earlier this week and was given azithromycin and prednisone along with her albuterol inhaler. She continued to worsen and returned. Additionally, she developed chest pain when coughing. She was admitted to the hospital. She has been given prednisone, nebulized albuterol plus ipratropium, and one dose of doxycycline. She notes that she is feeling significantly better since admission. PAST MEDICAL HISTORY: Kidney stones, depression, fibromyalgia. FAMILY HISTORY: Positive for lung cancer, COPD and asthma. SOCIAL HISTORY: See above tobacco smoke exposure. 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 REVIEW OF SYSTEMS: A 12-point review of systems was obtained. She does complain of chronic fatigue and diffuse pains. Otherwise, a 12-point review of systems was negative. PHYSICAL EXAMINATION: GENERAL: Reveals a female in no acute distress. VITAL SIGNS: She is afebrile. Her heart rate is 84 per minute and regular. Her respiratory rate is 20 per minute with a slightly prolonged exhalation phase, but without accessory muscle use. Her blood pressure is 141/66. Her oxygen saturation is 95% on 2 liters of oxygen. HEENT: Unremarkable. NECK: There is no JVD or lymphadenopathy. CHEST: She does have anterior chest wall tenderness to palpation that reproduces her pain. She has equal, slightly diminished breath sounds with rare wheezes. There are no rales, rhonchi, or rubs. CARDIOVASCULAR: She has regular rate and rhythm without murmur or gallop. ABDOMEN: Soft, without masses or organomegaly. EXTREMITIES: There is no cyanosis, clubbing, or edema. NEUROLOGIC: She is alert and oriented and appropriate. Cranial nerves, motor, and coordination are all grossly intact. DIAGNOSTIC DATA: She had a chest x-ray that was done earlier today. She has a generous cardiovascular silhouette. There are no acute infiltrates. LABORATORY DATA: White blood cell count of 23,000. Interestingly, she had 5% eosinophils. Blood gas revealed a pH of 7.37, pCO2 of 43, and pO2 of 70 on room air. Her troponin was less than 0.01. Her BNP was 543. ASSESSMENT: 1. Chronic obstructive pulmonary disease with acute exacerbation and refractory to outpatient therapy. 2. Asthma with acute exacerbation and refractory to outpatient therapy. 3. Musculoskeletal chest pain. 4. Tobacco abuse. PLAN: I agree with the inhaled bronchodilators and systemic steroids. I would taper her systemic steroids as tolerated. I did review with the patient the extreme importance of complete tobacco cessation, she has moderate interest in that. I would recommend starting a long-acting beta agonist and inhaled steroid at moderate dose (such as Advair 250/50) to be used chronically. Also, she should have outpatient pulmonary function studies in 4-6 weeks. I will follow along with you. If you have any questions, please do not hesitate to contact me. JES RAMIREZ MD DR: LESLIE/ciro JOB#: [id number] / [id number]
[2018-12-17 19:25] VITALS: BP 143/67
[2018-12-17] MEDS ORDERED: AMITRIPTYLINE HCL 25 MG TABLET. PO SCH (21:00)
[2018-12-17] MEDS ORDERED: ATORVASTATIN CALCIUM 10 MG TABLET. PO SCH (21:00)
[2018-12-17 23:07] VITALS: BP 134/76
[2018-12-18] MEDS: CYCLOBENZAPRINE 10 MG TABLET. PO PRN (01:58)
[2018-12-18] MEDS: traMADol 50 MG TABLET PO PRN (01:59)
[2018-12-18 03:00] VITALS: BP 130/64
[2018-12-18] MEDS: ALBUTEROL SULFATE 2.5 MG/3 ML NEBU. NEB PRN (05:04)
[2018-12-18 05:10] LABS: BASO # 0.1 x10^3/uL (0.0-0.2); BASO % 1 % (0-3); EOS # 1.1 x10^3/uL (0.0-0.7); EOS % 6 % (0-3); HEMATOCRIT 36.3 % (36.0-47.0); HEMOGLOBIN 11.5 g/dL (12.0-15.5); LYMPH # 3.9 x10^3/uL (1.0-4.8); LYMPH % 20 % (24-48); MEAN CORPUSCULAR HEMOGLOBIN 26 pg (25-35); MEAN CORPUSCULAR HGB CONC 32 g/dL (31-37); MEAN CORPUSCULAR VOLUME 83 fL (79-100); MONO % 5 % (0-9); NEUT # 13.4 x10^3/uL (1.8-7.7); NEUT % 69 % (31-73); PLATELET COUNT 345 x10^3/uL (140-400); RED BLOOD COUNT 4.36 x10^6/uL (3.50-5.40); RED CELL DISTRIBUTION WIDTH 14.7 % (11.5-14.5); WHITE BLOOD COUNT 19.5 x10^3/uL (4.0-11.0)
[2018-12-18 06:15] LABS: ALBUMIN/GLOBULIN RATIO 0.8 (1.0-1.7); CALCIUM 10.5 mg/dL (8.5-10.1); CREATININE 0.7 mg/dL (0.6-1.0); GFR 89.7; POTASSIUM 4.1 mmol/L (3.5-5.1); TOTAL BILIRUBIN 0.1 mg/dL (0.2-1.0); TOTAL PROTEIN 6.8 g/dL (6.4-8.2)
[2018-12-18] MEDS ORDERED: traMADol 50 MG TABLET PO PRN (07:00)
[2018-12-18 07:30] VITALS: BP 158/80
--- NOTE | 2018-12-18 07:52 | PDOC ---
PROGRESS NOTES Chief Complaint Chief Complaint Acute asthma exacerbation with COPD Obesity Smoker HTN Depression with anxiety HLD Vitamin D deficiency Fibromyalgia/Chronic pain History of Present Illness History of Present Illness Ms Pal is a 47yo F w/ PMHx renal stones, depression, fibromyalgia, hyperl ipidemia, bulging disk, cervical cancer, vitamin D deficiency, chronic pain, 2ppd smoker since age 17, and asthma with COPD who is admitted for shortness of breath and pleuritic chest tightness. Patient states 12/16 at night she started having sharp chest pain that went across her chest bilaterally and was worse with cough. Patient states she continues has chest tightness and shortness of breath. Patient states she feels that the shortness of breath has increased the chest tightness has increased. Patient states she's been using the inhaler but is not working. Patient states she was only able to smoke 3 cigarettes 12/16 One week ago she had marked increase in her shortness of breath. She had fever up to 102. She had a nonproductive cough. She came to the [facility] Emergency Room earlier this week and was given azithromycin and prednisone along with her albuterol inhaler. She was given azithromycin of which 12/17 will be Day 5 and prednisone of which 12/16 was the last day. She states she only took 2 tablets of the prednisone 12/16. She continued to worsen and returned and was admitted for further care. Given prednisone, nebulized albuterol plus ipratropium, and one dose of doxycycline. She notes that she is feeling significantly better since admission. Today off O2 and feeling much better, wishes for a chantix script and nebulizer at home and pulm f/u outpatient, arranged. Vitals Vitals Vital Signs Date Time Temp Pulse Resp B/P (MAP) Pulse Ox O2 Delivery O2 Flow Rate FiO2 12/18/18 07:30 97.5 74 20 158/80 (106) 98 Room Air 97.5 12/18/18 07:22 2.0 Physical Exam General: Alert, Oriented X3, Cooperative Lungs: Clear Extremities: No cyanosis Labs LABS Laboratory Tests Test 12/17/18 10:45 12/18/18 04:35 O2 Saturation 93 % (92-99) Arterial Blood pH 7.37 (7.35-7.45) Arterial Blood pCO2 at Patient Temp 43 mmHg (35-46) Arterial Blood pO2 at Patient Temp 70 mmHg (75-108) Arterial Blood HCO3 24 mmol/L (21-28) Arterial Blood Base Excess -1 mmol/L (-3-3) Oxyhemoglobin 92.5 % Methemoglobin 0.3 % (0.0-1.9) Carbon Monoxide, Quantitative 0.3 % (0.0-1.9) FiO2 21% on ra White Blood Count 19.5 x10^3/uL (4.0-11.0) Red Blood Count 4.36 x10^6/uL (3.50-5.40) Hemoglobin 11.5 g/dL (12.0-15.5) Hematocrit 36.3 % (36.0-47.0) Mean Corpuscular Volume 83 fL (79-100) Mean Corpuscular Hemoglobin 26 pg (25-35) Mean Corpuscular Hemoglobin Concent 32 g/dL (31-37) Red Cell Distribution Width 14.7 % (11.5-14.5) Platelet Count 345 x10^3/uL (140-400) Neutrophils (%) (Auto) 69 % (31-73) Lymphocytes (%) (Auto) 20 % (24-48) Monocytes (%) (Auto) 5 % (0-9) Eosinophils (%) (Auto) 6 % (0-3) Basophils (%) (Auto) 1 % (0-3) Neutrophils # (Auto) 13.4 x10^3/uL (1.8-7.7) Lymphocytes # (Auto) 3.9 x10^3/uL (1.0-4.8) Monocytes # (Auto) 1.0 x10^3/uL (0.0-1.1) Eosinophils # (Auto) 1.1 x10^3/uL (0.0-0.7) Basophils # (Auto) 0.1 x10^3/uL (0.0-0.2) Sodium Level 141 mmol/L (136-145) Potassium Level 4.1 mmol/L (3.5-5.1) Chloride Level 104 mmol/L (98-107) Carbon Dioxide Level 29 mmol/L (21-32) Anion Gap 8 (6-14) Blood Urea Nitrogen 13 mg/dL (7-20) Creatinine 0.7 mg/dL (0.6-1.0) Estimated GFR (Cockcroft-Gault) 89.7 BUN/Creatinine Ratio 19 (6-20) Glucose Level 144 mg/dL (70-99) Calcium Level 10.5 mg/dL (8.5-10.1) Total Bilirubin 0.1 mg/dL (0.2-1.0) Aspartate Amino Transf (AST/SGOT) 5 U/L (15-37) Alanine Aminotransferase (ALT/SGPT) 10 U/L (14-59) Alkaline Phosphatase 125 U/L (46-116) Total Protein 6.8 g/dL (6.4-8.2) Albumin 3.0 g/dL (3.4-5.0) Albumin/Globulin Ratio 0.8 (1.0-1.7) Comment Review of Relevant I have reviewed the following items trudy (where applicable) has been applied. Labs Laboratory Tests Test 12/16/18 18:38 12/16/18 19:28 12/16/18 23:00 12/17/18 10:45 White Blood Count 23.0 x10^3/uL (4.0-11.0) Red Blood Count 4.61 x10^6/uL (3.50-5.40) Hemoglobin 12.1 g/dL (12.0-15.5) Hematocrit 37.7 % (36.0-47.0) Mean Corpuscular Volume 82 fL (79-100) Mean Corpuscular Hemoglobin 26 pg (25-35) Mean Corpuscular Hemoglobin Concent 32 g/dL (31-37) Red Cell Distribution Width 14.9 % (11.5-14.5) Platelet Count 365 x10^3/uL (140-400) Neutrophils (%) (Auto) 75 % (31-73) Lymphocytes (%) (Auto) 12 % (24-48) Monocytes (%) (Auto) 7 % (0-9) Eosinophils (%) (Auto) 5 % (0-3) Basophils (%) (Auto) 1 % (0-3) Neutrophils # (Auto) 17.2 x10^3/uL (1.8-7.7) Lymphocytes # (Auto) 2.8 x10^3/uL (1.0-4.8) Monocytes # (Auto) 1.6 x10^3/uL (0.0-1.1) Eosinophils # (Auto) 1.2 x10^3/uL (0.0-0.7) Basophils # (Auto) 0.1 x10^3/uL (0.0-0.2) Segmented Neutrophils % 71 % (35-66) Band Neutrophils % 6 % (0-9) Lymphocytes % 12 % (24-48) Monocytes % 7 % (0-10) Eosinophils % 4 % (0-5) Platelet Estimate Adequate (ADEQUATE) Large Platelets Few Sodium Level 140 mmol/L (136-145) Potassium Level 4.3 mmol/L (3.5-5.1) Chloride Level 105 mmol/L (98-107) Carbon Dioxide Level 29 mmol/L (21-32) Anion Gap 6 (6-14) Blood Urea Nitrogen 17 mg/dL (7-20) Creatinine 0.8 mg/dL (0.6-1.0) Estimated GFR (Cockcroft-Gault) 76.9 BUN/Creatinine Ratio 21 (6-20) Glucose Level 98 mg/dL (70-99) Calcium Level 10.1 mg/dL (8.5-10.1) Total Bilirubin 0.2 mg/dL (0.2-1.0) Aspartate Amino Transf (AST/SGOT) 6 U/L (15-37) Alanine Aminotransferase (ALT/SGPT) 12 U/L (14-59) Alkaline Phosphatase 113 U/L (46-116) Troponin I Quantitative < 0.017 ng/mL (0.000-0.055) < 0.017 ng/mL (0.000-0.055) OG-Nkr-A-Type Natriuretic Peptide 543 pg/mL (0-124) Total Protein 7.2 g/dL (6.4-8.2) Albumin 3.3 g/dL (3.4-5.0) Albumin/Globulin Ratio 0.8 (1.0-1.7) Lactic Acid Level 0.7 mmol/L (0.4-2.0) O2 Saturation 93 % (92-99) Arterial Blood pH 7.37 (7.35-7.45) Arterial Blood pCO2 at Patient Temp 43 mmHg (35-46) Arterial Blood pO2 at Patient Temp 70 mmHg (75-108) Arterial Blood HCO3 24 mmol/L (21-28) Arterial Blood Base Excess -1 mmol/L (-3-3) Oxyhemoglobin 92.5 % Methemoglobin 0.3 % (0.0-1.9) Carbon Monoxide, Quantitative 0.3 % (0.0-1.9) FiO2 21% on ra Test 12/18/18 04:35 White Blood Count 19.5 x10^3/uL (4.0-11.0) Red Blood Count 4.36 x10^6/uL (3.50-5.40) Hemoglobin 11.5 g/dL (12.0-15.5) Hematocrit 36.3 % (36.0-47.0) Mean Corpuscular Volume 83 fL (79-100) Mean Corpuscular Hemoglobin 26 pg (25-35) Mean Corpuscular Hemoglobin Concent 32 g/dL (31-37) Red Cell Distribution Width 14.7 % (11.5-14.5) Platelet Count 345 x10^3/uL (140-400) Neutrophils (%) (Auto) 69 % (31-73) Lymphocytes (%) (Auto) 20 % (24-48) Monocytes (%) (Auto) 5 % (0-9) Eosinophils (%) (Auto) 6 % (0-3) Basophils (%) (Auto) 1 % (0-3) Neutrophils # (Auto) 13.4 x10^3/uL (1.8-7.7) Lymphocytes # (Auto) 3.9 x10^3/uL (1.0-4.8) Monocytes # (Auto) 1.0 x10^3/uL (0.0-1.1) Eosinophils # (Auto) 1.1 x10^3/uL (0.0-0.7) Basophils # (Auto) 0.1 x10^3/uL (0.0-0.2) Sodium Level 141 mmol/L (136-145) Potassium Level 4.1 mmol/L (3.5-5.1) Chloride Level 104 mmol/L (98-107) Carbon Dioxide Level 29 mmol/L (21-32) Anion Gap 8 (6-14) Blood Urea Nitrogen 13 mg/dL (7-20) Creatinine 0.7 mg/dL (0.6-1.0) Estimated GFR (Cockcroft-Gault) 89.7 BUN/Creatinine Ratio 19 (6-20) Glucose Level 144 mg/dL (70-99) Calcium Level 10.5 mg/dL (8.5-10.1) Total Bilirubin 0.1 mg/dL (0.2-1.0) Aspartate Amino Transf (AST/SGOT) 5 U/L (15-37) Alanine Aminotransferase (ALT/SGPT) 10 U/L (14-59) Alkaline Phosphatase 125 U/L (46-116) Total Protein 6.8 g/dL (6.4-8.2) Albumin 3.0 g/dL (3.4-5.0) Albumin/Globulin Ratio 0.8 (1.0-1.7) Laboratory Tests Test 12/17/18 10:45 12/18/18 04:35 O2 Saturation 93 % (92-99) Arterial Blood pH 7.37 (7.35-7.45) Arterial Blood pCO2 at Patient Temp 43 mmHg (35-46) Arterial Blood pO2 at Patient Temp 70 mmHg (75-108) Arterial Blood HCO3 24 mmol/L (21-28) Arterial Blood Base Excess -1 mmol/L (-3-3) Oxyhemoglobin 92.5 % Methemoglobin 0.3 % (0.0-1.9) Carbon Monoxide, Quantitative 0.3 % (0.0-1.9) FiO2 21% on ra White Blood Count 19.5 x10^3/uL (4.0-11.0) Red Blood Count 4.36 x10^6/uL (3.50-5.40) Hemoglobin 11.5 g/dL (12.0-15.5) Hematocrit 36.3 % (36.0-47.0) Mean Corpuscular Volume 83 fL (79-100) Mean Corpuscular Hemoglobin 26 pg (25-35) Mean Corpuscular Hemoglobin Concent 32 g/dL (31-37) Red Cell Distribution Width 14.7 % (11.5-14.5) Platelet Count 345 x10^3/uL (140-400) Neutrophils (%) (Auto) 69 % (31-73) Lymphocytes (%) (Auto) 20 % (24-48) Monocytes (%) (Auto) 5 % (0-9) Eosinophils (%) (Auto) 6 % (0-3) Basophils (%) (Auto) 1 % (0-3) Neutrophils # (Auto) 13.4 x10^3/uL (1.8-7.7) Lymphocytes # (Auto) 3.9 x10^3/uL (1.0-4.8) Monocytes # (Auto) 1.0 x10^3/uL (0.0-1.1) Eosinophils # (Auto) 1.1 x10^3/uL (0.0-0.7) Basophils # (Auto) 0.1 x10^3/uL (0.0-0.2) Sodium Level 141 mmol/L (136-145) Potassium Level 4.1 mmol/L (3.5-5.1) Chloride Level 104 mmol/L (98-107) Carbon Dioxide Level 29 mmol/L (21-32) Anion Gap 8 (6-14) Blood Urea Nitrogen 13 mg/dL (7-20) Creatinine 0.7 mg/dL (0.6-1.0) Estimated GFR (Cockcroft-Gault) 89.7 BUN/Creatinine Ratio 19 (6-20) Glucose Level 144 mg/dL (70-99) Calcium Level 10.5 mg/dL (8.5-10.1) Total Bilirubin 0.1 mg/dL (0.2-1.0) Aspartate Amino Transf (AST/SGOT) 5 U/L (15-37) Alanine Aminotransferase (ALT/SGPT) 10 U/L (14-59) Alkaline Phosphatase 125 U/L (46-116) Total Protein 6.8 g/dL (6.4-8.2) Albumin 3.0 g/dL (3.4-5.0) Albumin/Globulin Ratio 0.8 (1.0-1.7) Microbiology 12/16/18 Blood Culture - Preliminary, Resulted NO GROWTH AFTER 1 DAY Medications Current Medications Albuterol Sulfate (Ventolin Neb Soln) 2.5 mg 1X ONCE NEB ; Start 12/16/18 at 18:00; Stop 12/16/18 at 18:01; Status Cancel Prednisone (Prednisone) 20 mg 1X ONCE PO Last administered on 12/16/18at 18:34; Start 12/16/18 at 18:00; Stop 12/16/18 at 18:06; Status DC Albuterol/ Ipratropium (Duoneb) 3 ml 1X ONCE NEB Last administered on 12/16/18at 18:11; Start 12/16/18 at 18:15; Stop 12/16/18 at 18:16; Status DC Albuterol Sulfate (Ventolin Neb Soln) 2.5 mg STK-MED ONCE .ROUTE ; Start 12/16/18 at 18:24; Stop 12/16/18 at 18:24; Status DC Albuterol Sulfate (Ventolin Neb Soln) 10 mg 1X ONCE CONT NEB Last administered on 12/16/18at 18:30; Start 12/16/18 at 18:30; Stop 12/16/18 at 18:31; Status DC Sodium Chloride 1,000 ml @ 1,000 mls/hr 1X ONCE IV Last administered on 12/16/18at 19:37; Start 12/16/18 at 19:15; Stop 12/16/18 at 20:14; Status DC Fentanyl Citrate (Fentanyl 2ml Vial) 50 mcg 1X ONCE IV Last administered on 12/16/18at 19:37; Start 12/16/18 at 19:15; Stop 12/16/18 at 19:16; Status DC Doxycycline Hyclate 100 mg/ Dextrose 100 ml @ 50 mls/hr 1X ONCE IV Last administered on 12/16/18at 20:06; Start 12/16/18 at 20:30; Stop 12/16/18 at 22:29; Status DC Ondansetron HCl (Zofran) 4 mg PRN Q8HRS PRN IV NAUSEA/VOMITING Last admin istered on 12/17/18at 02:15; Start 12/16/18 at 19:45; Stop 12/17/18 at 19:44; Status DC Fentanyl Citrate (Fentanyl 2ml Vial) 50 mcg PRN Q1HR PRN IV PAIN Last administered on 12/17/18at 18:09; Start 12/16/18 at 19:45; Stop 12/17/18 at 19:44; Status DC Acetaminophen (Tylenol) 650 mg PRN Q4HRS PRN PO FEVER; Start 12/16/18 at 19:45; Stop 12/17/18 at 19:44; Status DC Albuterol/ Ipratropium (Duoneb) 3 ml RTQID NEB Last administered on 12/17/18at 18:28; Start 12/16/18 at 20:00; Stop 12/17/18 at 19:59; Status DC Albuterol Sulfate (Ventolin Neb Soln) 2.5 mg PRN Q4HRS PRN NEB SHORTNESS OF BREATH; Start 12/16/18 at 23:30; Status UNV Albuterol Sulfate (Ventolin Neb Soln) 2.5 mg PRN Q4HRS PRN NEB SHORTNESS OF BREATH Last administered on 12/18/18at 05:04; Start 12/16/18 at 23:30 Amitriptyline HCl (Elavil) 25 mg QHS PO ; Start 12/17/18 at 21:00; Stop 12/17/18 at 02:00; Status DC Cyclobenzaprine HCl (Flexeril) 10 mg PRN TID PRN PO MUSCLE SPASMS Last administered on 12/18/18at 01:59; Start 12/17/18 at 02:00 Metoprolol Tartrate (Lopressor) 25 mg BID PO Last administered on 12/17/18at 20:48; Start 12/17/18 at 09:00 Tramadol HCl (Ultram) 50 mg PRN BID PRN PO PAIN Last administered on 12/18/18at 01:59; Start 12/17/18 at 02:00; Stop 12/18/18 at 07:02; Status DC Duloxetine HCl (Cymbalta) 60 mg DAILY PO Last administered on 12/17/18at 09:26; Start 12/17/18 at 09:00 Gabapentin (Neurontin) 300 mg TID PO Last administered on 12/17/18at 20:48; Start 12/17/18 at 09:00 Ibuprofen (Motrin) 800 mg TIDWMEALS PO Last administered on 12/17/18at 18:09; Start 12/17/18 at 08:00 Atorvastatin Calcium (Lipitor) 5 mg HS PO Last administered on 12/17/18at 20:48; Start 12/17/18 at 21:00 Amitriptyline HCl (Elavil) 25 mg PRN QHS PRN PO INSOMNIA Last administered on 12/17/18at 20:49; Start 12/17/18 at 02:00 Ibuprofen (Motrin) 800 mg 1X ONCE PO Last administered on 12/17/18at 02:15; Start 12/17/18 at 02:15; Stop 12/17/18 at 02:16; Status DC Gabapentin (Neurontin) 300 mg 1X ONCE PO Last administered on 12/17/18at 02:15; Start 12/17/18 at 02:15; Stop 12/17/18 at 02:16; Status DC Nicotine (Nicoderm Cq 21mg) 1 patch PRN DAILY PRN TD SMOKING CESSATION Last administered on 12/17/18at 09:26; Start 12/17/18 at 02:30 Enoxaparin Sodium (Lovenox 40mg Syringe) 40 mg Q24H SQ Last administered on 12/17/18at 12:05; Start 12/17/18 at 11:00 Pantoprazole Sodium (Protonix) 40 mg DAILYAC PO Last administered on 12/17/18at 12:05; Start 12/17/18 at 11:00 Prednisone (Prednisone) 50 mg DAILY08 PO Last administered on 12/17/18at 12:05; Start 12/17/18 at 11:00; Stop 12/19/18 at 10:59 Tramadol HCl (Ultram) 50 mg PRN Q6HRS PRN PO MILD TO MODERATE PAIN Last administered on 12/18/18at 07:22; Start 12/18/18 at 07:00 Active Scripts Active Proair Hfa Inhaler (Albuterol Sulfate) 8.5 Gm Hfa.aer.ad 1 Puff INH PRN Q6HRS PRN Reglan (Metoclopramide Hcl) 10 Mg Tablet 10 Mg PO QIDACHS Ondansetron Odt (Ondansetron) 4 Mg Tab.rapdis 1 Tab PO PRN Q6-8HRS Proair Hfa Inhaler (Albuterol Sulfate) 8.5 Gm Hfa.aer.ad 1 Puff INH PRN Q6HRS PRN Reported Amitriptyline Hcl 25 Mg Tablet 1 Tab PO QHS Gabapentin 600 Mg Tablet 300 Mg PO TID Cyclobenzaprine Hcl 10 Mg Tablet 1 Tab PO TID Ibuprofen 800 Mg Tablet 800 Mg PO TID Tramadol Hcl 50 Mg Tablet 50 Mg PO BID PRN Cymbalta (Duloxetine Hcl) 60 Mg Capsule. 1 Cap PO DAILY Lovastatin 20 Mg Tablet 1 Tab PO DAILY Metoprolol Tartrate 25 Mg Tablet 1 Tab PO BID Vitals/I & O Vital Sign - Last 24 Hours 12/17/18 12/17/18 12/17/1812/17/19 07:50 08:00 08:36 09:26 Temp 97.6 97.6 Pulse 73 73 Resp 20 B/P (MAP) 159/88 (111) 159/88 Pulse Ox 98 96 O2 Delivery Nasal Cannula Nasal Cannula Room Air O2 Flow Rate 2.0 2.0 12/17/18 12/17/18 12/17/18 12/17/18 11:19 12:05 12:29 13:10 Temp 97.5 97.5 Pulse 79 Resp 20 B/P (MAP) 123/57 (79) Pulse Ox 96 96 96 O2 Delivery Nasal Cannula Nasal Cannula Nasal Cannula Room Air O2 Flow Rate 2.0 2.0 2.0 12/17/18 12/17/18 12/17/18 12/17/18 15:30 15:59 18:09 18:28 Temp 97.6 97.6 Pulse 84 Resp 20 B/P (MAP) 141/66 (91) Pulse Ox 95 95 O2 Delivery Nasal Cannula Room Air Nasal Cannula Room Air O2 Flow Rate 2.0 2.0 12/17/18 12/17/18 12/17/18 12/17/18 19:25 20:18 20:48 23:07 Temp 97.7 98.4 97.7 98.4 Pulse 92 92 87 Resp 20 20 B/P (MAP) 143/67 (92) 143/67 134/76 (95) Pulse Ox 94 95 O2 Delivery Room Air Nasal Cannula Room Air O2 Flow Rate 2.0 12/18/18 12/18/18 12/18/18 12/18/18 01:59 03:00 03:37 05:05 Temp 97.4 97.4 Pulse 75 Resp 18 18 18 B/P (MAP) 130/64 (86) Pulse Ox 95 93 93 96 O2 Delivery Room Air Room Air Room Air Room Air 12/18/18 12/18/18 07:22 07:30 Temp 97.5 97.5 Pulse 74 Resp 20 B/P (MAP) 158/80 (106) Pulse Ox 96 98 O2 Delivery Nasal Cannula Room Air O2 Flow Rate 2.0 Intake and Output 12/17/18 12/17/18 12/18/18 15:00 23:00 07:00 Intake Total 500 ml 200 ml Output Total 0 ml Balance 500 ml 200 ml 0 ml BRONSON LOPEZ MD Dec 18, 2018 07:52
[2018-12-18] MEDS: NICOTINE 21MG PATCH. TD PRN (09:51)
[2018-12-18 09:52] VITALS: BP 158/80
[2018-12-18] MEDS: predniSONE 10 MG TABLET PO SCH (09:52)
[2018-12-18] MEDS: GABAPENTIN 300 MG CAPSULE. PO SCH (09:52)
[2018-12-18] MEDS: METOPROLOL TART IMMED RELEASE 25 MG TABLET. PO SCH (09:52)
[2018-12-18] MEDS: IBUPROFEN 400 MG TABLET. PO SCH (09:52)
[2018-12-18] MEDS: PANTOPRAZOLE 40 MG TABLET.DR. PO SCH (09:52)
[2018-12-18] MEDS: ENOXAPARIN 40 MG/0.4 ML SYRINGE. SQ SCH ×2 (09:53→11:00)
[2018-12-18] MEDS: DULoxetine HCL 30 MG CAPSULE.DR PO SCH (09:53)
--- NOTE | 2018-12-18 10:38 | PDOC ---
PULMONARY PROGRESS NOTES Subjective Patient with COPD and asthma exacerbation and tobacco abuse. Feeling better. PMH: kidney stones, fibromyalgia, depression FH; COPD and lung cancer ROS: general fatigue and malaise Vitals Vital Signs Date Time Temp Pulse Resp B/P (MAP) Pulse Ox O2 Delivery O2 Flow Rate FiO2 12/18/18 09:54 Room Air 12/18/18 09:54 74 158/80 12/18/18 07:30 97.5 20 98 97.5 12/18/18 07:22 2.0 ROS: No Nausea, No Chest Pain General: Alert, Oriented X4 Lungs: Clear Cardiovascular: S1, S2 Abdomen: Soft, Non-tender Neuro Exam: Alert, Oriented, No Focal Findings Extremities: No Edema Labs Laboratory Tests Test 12/16/18 18:38 12/16/18 19:28 12/16/18 23:00 12/17/18 10:45 White Blood Count 23.0 x10^3/uL (4.0-11.0) Red Blood Count 4.61 x10^6/uL (3.50-5.40) Hemoglobin 12.1 g/dL (12.0-15.5) Hematocrit 37.7 % (36.0-47.0) Mean Corpuscular Volume 82 fL (79-100) Mean Corpuscular Hemoglobin 26 pg (25-35) Mean Corpuscular Hemoglobin Concent 32 g/dL (31-37) Red Cell Distribution Width 14.9 % (11.5-14.5) Platelet Count 365 x10^3/uL (140-400) Neutrophils (%) (Auto) 75 % (31-73) Lymphocytes (%) (Auto) 12 % (24-48) Monocytes (%) (Auto) 7 % (0-9) Eosinophils (%) (Auto) 5 % (0-3) Basophils (%) (Auto) 1 % (0-3) Neutrophils # (Auto) 17.2 x10^3/uL (1.8-7.7) Lymphocytes # (Auto) 2.8 x10^3/uL (1.0-4.8) Monocytes # (Auto) 1.6 x10^3/uL (0.0-1.1) Eosinophils # (Auto) 1.2 x10^3/uL (0.0-0.7) Basophils # (Auto) 0.1 x10^3/uL (0.0-0.2) Segmented Neutrophils % 71 % (35-66) Band Neutrophils % 6 % (0-9) Lymphocytes % 12 % (24-48) Monocytes % 7 % (0-10) Eosinophils % 4 % (0-5) Platelet Estimate Adequate (ADEQUATE) Large Platelets Few Sodium Level 140 mmol/L (136-145) Potassium Level 4.3 mmol/L (3.5-5.1) Chloride Level 105 mmol/L (98-107) Carbon Dioxide Level 29 mmol/L (21-32) Anion Gap 6 (6-14) Blood Urea Nitrogen 17 mg/dL (7-20) Creatinine 0.8 mg/dL (0.6-1.0) Estimated GFR (Cockcroft-Gault) 76.9 BUN/Creatinine Ratio 21 (6-20) Glucose Level 98 mg/dL (70-99) Calcium Level 10.1 mg/dL (8.5-10.1) Total Bilirubin 0.2 mg/dL (0.2-1.0) Aspartate Amino Transf (AST/SGOT) 6 U/L (15-37) Alanine Aminotransferase (ALT/SGPT) 12 U/L (14-59) Alkaline Phosphatase 113 U/L (46-116) Troponin I Quantitative < 0.017 ng/mL (0.000-0.055) < 0.017 ng/mL (0.000-0.055) BS-Gxg-L-Type Natriuretic Peptide 543 pg/mL (0-124) Total Protein 7.2 g/dL (6.4-8.2) Albumin 3.3 g/dL (3.4-5.0) Albumin/Globulin Ratio 0.8 (1.0-1.7) Lactic Acid Level 0.7 mmol/L (0.4-2.0) O2 Saturation 93 % (92-99) Arterial Blood pH 7.37 (7.35-7.45) Arterial Blood pCO2 at Patient Temp 43 mmHg (35-46) Arterial Blood pO2 at Patient Temp 70 mmHg (75-108) Arterial Blood HCO3 24 mmol/L (21-28) Arterial Blood Base Excess -1 mmol/L (-3-3) Oxyhemoglobin 92.5 % Methemoglobin 0.3 % (0.0-1.9) Carbon Monoxide, Quantitative 0.3 % (0.0-1.9) FiO2 21% on ra Test 12/18/18 04:35 White Blood Count 19.5 x10^3/uL (4.0-11.0) Red Blood Count 4.36 x10^6/uL (3.50-5.40) Hemoglobin 11.5 g/dL (12.0-15.5) Hematocrit 36.3 % (36.0-47.0) Mean Corpuscular Volume 83 fL (79-100) Mean Corpuscular Hemoglobin 26 pg (25-35) Mean Corpuscular Hemoglobin Concent 32 g/dL (31-37) Red Cell Distribution Width 14.7 % (11.5-14.5) Platelet Count 345 x10^3/uL (140-400) Neutrophils (%) (Auto) 69 % (31-73) Lymphocytes (%) (Auto) 20 % (24-48) Monocytes (%) (Auto) 5 % (0-9) Eosinophils (%) (Auto) 6 % (0-3) Basophils (%) (Auto) 1 % (0-3) Neutrophils # (Auto) 13.4 x10^3/uL (1.8-7.7) Lymphocytes # (Auto) 3.9 x10^3/uL (1.0-4.8) Monocytes # (Auto) 1.0 x10^3/uL (0.0-1.1) Eosinophils # (Auto) 1.1 x10^3/uL (0.0-0.7) Basophils # (Auto) 0.1 x10^3/uL (0.0-0.2) Sodium Level 141 mmol/L (136-145) Potassium Level 4.1 mmol/L (3.5-5.1) Chloride Level 104 mmol/L (98-107) Carbon Dioxide Level 29 mmol/L (21-32) Anion Gap 8 (6-14) Blood Urea Nitrogen 13 mg/dL (7-20) Creatinine 0.7 mg/dL (0.6-1.0) Estimated GFR (Cockcroft-Gault) 89.7 BUN/Creatinine Ratio 19 (6-20) Glucose Level 144 mg/dL (70-99) Calcium Level 10.5 mg/dL (8.5-10.1) Phosphorus Level 2.6 mg/dL (2.6-4.7) Total Bilirubin 0.1 mg/dL (0.2-1.0) Aspartate Amino Transf (AST/SGOT) 5 U/L (15-37) Alanine Aminotransferase (ALT/SGPT) 10 U/L (14-59) Alkaline Phosphatase 125 U/L (46-116) Total Protein 6.8 g/dL (6.4-8.2) Albumin 3.0 g/dL (3.4-5.0) Albumin/Globulin Ratio 0.8 (1.0-1.7) Laboratory Tests Test 12/17/18 10:45 12/18/18 04:35 O2 Saturation 93 % (92-99) Arterial Blood pH 7.37 (7.35-7.45) Arterial Blood pCO2 at Patient Temp 43 mmHg (35-46) Arterial Blood pO2 at Patient Temp 70 mmHg (75-108) Arterial Blood HCO3 24 mmol/L (21-28) Arterial Blood Base Excess -1 mmol/L (-3-3) Oxyhemoglobin 92.5 % Methemoglobin 0.3 % (0.0-1.9) Carbon Monoxide, Quantitative 0.3 % (0.0-1.9) FiO2 21% on ra White Blood Count 19.5 x10^3/uL (4.0-11.0) Red Blood Count 4.36 x10^6/uL (3.50-5.40) Hemoglobin 11.5 g/dL (12.0-15.5) Hematocrit 36.3 % (36.0-47.0) Mean Corpuscular Volume 83 fL (79-100) Mean Corpuscular Hemoglobin 26 pg (25-35) Mean Corpuscular Hemoglobin Concent 32 g/dL (31-37) Red Cell Distribution Width 14.7 % (11.5-14.5) Platelet Count 345 x10^3/uL (140-400) Neutrophils (%) (Auto) 69 % (31-73) Lymphocytes (%) (Auto) 20 % (24-48) Monocytes (%) (Auto) 5 % (0-9) Eosinophils (%) (Auto) 6 % (0-3) Basophils (%) (Auto) 1 % (0-3) Neutrophils # (Auto) 13.4 x10^3/uL (1.8-7.7) Lymphocytes # (Auto) 3.9 x10^3/uL (1.0-4.8) Monocytes # (Auto) 1.0 x10^3/uL (0.0-1.1) Eosinophils # (Auto) 1.1 x10^3/uL (0.0-0.7) Basophils # (Auto) 0.1 x10^3/uL (0.0-0.2) Sodium Level 141 mmol/L (136-145) Potassium Level 4.1 mmol/L (3.5-5.1) Chloride Level 104 mmol/L (98-107) Carbon Dioxide Level 29 mmol/L (21-32) Anion Gap 8 (6-14) Blood Urea Nitrogen 13 mg/dL (7-20) Creatinine 0.7 mg/dL (0.6-1.0) Estimated GFR (Cockcroft-Gault) 89.7 BUN/Creatinine Ratio 19 (6-20) Glucose Level 144 mg/dL (70-99) Calcium Level 10.5 mg/dL (8.5-10.1) Phosphorus Level 2.6 mg/dL (2.6-4.7) Total Bilirubin 0.1 mg/dL (0.2-1.0) Aspartate Amino Transf (AST/SGOT) 5 U/L (15-37) Alanine Aminotransferase (ALT/SGPT) 10 U/L (14-59) Alkaline Phosphatase 125 U/L (46-116) Total Protein 6.8 g/dL (6.4-8.2) Albumin 3.0 g/dL (3.4-5.0) Albumin/Globulin Ratio 0.8 (1.0-1.7) Medications Active Scripts Medications Dose Route/Sig Max Daily Dose Days Date Category Amitriptyline Hcl 25 Mg Tablet 1 Tab PO QHS 12/17/18 Reported Gabapentin 600 Mg Tablet 300 Mg PO TID 12/17/18 Reported Cyclobenzaprine Hcl 10 Mg Tablet 1 Tab PO TID 12/17/18 Reported Ibuprofen 800 Mg Tablet 800 Mg PO TID 12/17/18 Reported Tramadol Hcl 50 Mg Tablet 50 Mg PO BID PRN 12/16/18 Reported Proair Hfa Inhaler (Albuterol Sulfate) 8.5 Gm Hfa.aer.ad 1 Puff INH PRN Q6HRS PRN 12/13/18 Rx Reglan (Metoclopramide Hcl) 10 Mg Tablet 10 Mg PO QIDACHS 05/10/18 Rx Ondansetron Odt (Ondansetron) 4 Mg Tab.rapdis 1 Tab PO PRN Q6-8HRS 03/08/18 Rx Cymbalta (Duloxetine Hcl) 60 Mg Capsule.dr 1 Cap PO DAILY 11/16/17 Reported Lovastatin 20 Mg Tablet 1 Tab PO DAILY 11/12/17 Reported Proair Hfa Inhaler (Albuterol Sulfate) 8.5 Gm Hfa.aer.ad 1 Puff INH PRN Q6HRS PRN 03/07/17 Rx Metoprolol Tartrate 25 Mg Tablet 1 Tab PO BID 03/28/14 Reported Impression . 1. Acute exacerbation of COPD and asthma, resolving 2. Tobacco abuse Plan . OK with discharge. discussed importance of complete smoking cessation 5 days prednisone Suggest maintenance therapy of intermediate steroid' LABA such as Advair 250/50 influenza vaccine JES RAMIREZ MD Dec 18, 2018 10:38
[2018-12-18] MEDS ORDERED: BUDE10.22 IH (10:45)
[2018-12-18] MEDS ORDERED: FLU VAX QS 2019-20 (36MOS+)/PF 0.5 ML SYRINGE. VAX IM ONE (10:45)
[2018-12-18] MEDS ORDERED: PRED20TA PO (10:45)
[2018-12-18] MEDS ORDERED: ALBU0.63 NEB (10:45)
[2018-12-18] MEDS ORDERED: MONT10TA49 PO (10:45)
[2018-12-18] MEDS ORDERED: VARE0.5T PO (10:45)
--- NOTE | 2018-12-18 10:49 | PDOC3 ---
Discharge Summary Visit Information Date of Admission: Dec 16, 2018 Date of Discharge: Dec 18, 2018 Admitting Diagnosis: Acute Asthma/COPD exacerbation Final Diagnosis Acute asthma exacerbation Brief Hospital Course Allergies Allergies Coded Allergies Type Severity Reaction Last Updated Verified Sulfa (Sulfonamide Antibiotics) Allergy Intermediate 01/26/18 Yes Vital Signs Vital Signs Date Time Temp Pulse Resp B/P (MAP) Pulse Ox O2 Delivery O2 Flow Rate FiO2 12/18/18 09:54 Room Air 12/18/18 09:54 74 158/80 12/18/18 07:30 97.5 20 98 97.5 12/18/18 07:22 2.0 Lab Results Laboratory Tests Test 12/16/18 18:38 12/16/18 19:28 12/16/18 23:00 12/17/18 10:45 White Blood Count 23.0 x10^3/uL (4.0-11.0) Red Blood Count 4.61 x10^6/uL (3.50-5.40) Hemoglobin 12.1 g/dL (12.0-15.5) Hematocrit 37.7 % (36.0-47.0) Mean Corpuscular Volume 82 fL (79-100) Mean Corpuscular Hemoglobin 26 pg (25-35) Mean Corpuscular Hemoglobin Concent 32 g/dL (31-37) Red Cell Distribution Width 14.9 % (11.5-14.5) Platelet Count 365 x10^3/uL (140-400) Neutrophils (%) (Auto) 75 % (31-73) Lymphocytes (%) (Auto) 12 % (24-48) Monocytes (%) (Auto) 7 % (0-9) Eosinophils (%) (Auto) 5 % (0-3) Basophils (%) (Auto) 1 % (0-3) Neutrophils # (Auto) 17.2 x10^3/uL (1.8-7.7) Lymphocytes # (Auto) 2.8 x10^3/uL (1.0-4.8) Monocytes # (Auto) 1.6 x10^3/uL (0.0-1.1) Eosinophils # (Auto) 1.2 x10^3/uL (0.0-0.7) Basophils # (Auto) 0.1 x10^3/uL (0.0-0.2) Segmented Neutrophils % 71 % (35-66) Band Neutrophils % 6 % (0-9) Lymphocytes % 12 % (24-48) Monocytes % 7 % (0-10) Eosinophils % 4 % (0-5) Platelet Estimate Adequate (ADEQUATE) Large Platelets Few Sodium Level 140 mmol/L (136-145) Potassium Level 4.3 mmol/L (3.5-5.1) Chloride Level 105 mmol/L (98-107) Carbon Dioxide Level 29 mmol/L (21-32) Anion Gap 6 (6-14) Blood Urea Nitrogen 17 mg/dL (7-20) Creatinine 0.8 mg/dL (0.6-1.0) Estimated GFR (Cockcroft-Gault) 76.9 BUN/Creatinine Ratio 21 (6-20) Glucose Level 98 mg/dL (70-99) Calcium Level 10.1 mg/dL (8.5-10.1) Total Bilirubin 0.2 mg/dL (0.2-1.0) Aspartate Amino Transf (AST/SGOT) 6 U/L (15-37) Alanine Aminotransferase (ALT/SGPT) 12 U/L (14-59) Alkaline Phosphatase 113 U/L (46-116) Troponin I Quantitative < 0.017 ng/mL (0.000-0.055) < 0.017 ng/mL (0.000-0.055) QY-Htf-[id number]-Type Natriuretic Peptide 543 pg/mL (0-124) Total Protein 7.2 g/dL (6.4-8.2) Albumin 3.3 g/dL (3.4-5.0) Albumin/Globulin Ratio 0.8 (1.0-1.7) Lactic Acid Level 0.7 mmol/L (0.4-2.0) O2 Saturation 93 % (92-99) Arterial Blood pH 7.37 (7.35-7.45) Arterial Blood pCO2 at Patient Temp 43 mmHg (35-46) Arterial Blood pO2 at Patient Temp 70 mmHg (75-108) Arterial Blood HCO3 24 mmol/L (21-28) Arterial Blood Base Excess -1 mmol/L (-3-3) Oxyhemoglobin 92.5 % Methemoglobin 0.3 % (0.0-1.9) Carbon Monoxide, Quantitative 0.3 % (0.0-1.9) FiO2 21% on ra Test 12/18/18 04:35 White Blood Count 19.5 x10^3/uL (4.0-11.0) Red Blood Count 4.36 x10^6/uL (3.50-5.40) Hemoglobin 11.5 g/dL (12.0-15.5) Hematocrit 36.3 % (36.0-47.0) Mean Corpuscular Volume 83 fL (79-100) Mean Corpuscular Hemoglobin 26 pg (25-35) Mean Corpuscular Hemoglobin Concent 32 g/dL (31-37) Red Cell Distribution Width 14.7 % (11.5-14.5) Platelet Count 345 x10^3/uL (140-400) Neutrophils (%) (Auto) 69 % (31-73) Lymphocytes (%) (Auto) 20 % (24-48) Monocytes (%) (Auto) 5 % (0-9) Eosinophils (%) (Auto) 6 % (0-3) Basophils (%) (Auto) 1 % (0-3) Neutrophils # (Auto) 13.4 x10^3/uL (1.8-7.7) Lymphocytes # (Auto) 3.9 x10^3/uL (1.0-4.8) Monocytes # (Auto) 1.0 x10^3/uL (0.0-1.1) Eosinophils # (Auto) 1.1 x10^3/uL (0.0-0.7) Basophils # (Auto) 0.1 x10^3/uL (0.0-0.2) Sodium Level 141 mmol/L (136-145) Potassium Level 4.1 mmol/L (3.5-5.1) Chloride Level 104 mmol/L (98-107) Carbon Dioxide Level 29 mmol/L (21-32) Anion Gap 8 (6-14) Blood Urea Nitrogen 13 mg/dL (7-20) Creatinine 0.7 mg/dL (0.6-1.0) Estimated GFR (Cockcroft-Gault) 89.7 BUN/Creatinine Ratio 19 (6-20) Glucose Level 144 mg/dL (70-99) Calcium Level 10.5 mg/dL (8.5-10.1) Phosphorus Level 2.6 mg/dL (2.6-4.7) Total Bilirubin 0.1 mg/dL (0.2-1.0) Aspartate Amino Transf (AST/SGOT) 5 U/L (15-37) Alanine Aminotransferase (ALT/SGPT) 10 U/L (14-59) Alkaline Phosphatase 125 U/L (46-116) Total Protein 6.8 g/dL (6.4-8.2) Albumin 3.0 g/dL (3.4-5.0) Albumin/Globulin Ratio 0.8 (1.0-1.7) Laboratory Tests Test 12/18/18 04:35 White Blood Count 19.5 x10^3/uL (4.0-11.0) Red Blood Count 4.36 x10^6/uL (3.50-5.40) Hemoglobin 11.5 g/dL (12.0-15.5) Hematocrit 36.3 % (36.0-47.0) Mean Corpuscular Volume 83 fL (79-100) Mean Corpuscular Hemoglobin 26 pg (25-35) Mean Corpuscular Hemoglobin Concent 32 g/dL (31-37) Red Cell Distribution Width 14.7 % (11.5-14.5) Platelet Count 345 x10^3/uL (140-400) Neutrophils (%) (Auto) 69 % (31-73) Lymphocytes (%) (Auto) 20 % (24-48) Monocytes (%) (Auto) 5 % (0-9) Eosinophils (%) (Auto) 6 % (0-3) Basophils (%) (Auto) 1 % (0-3) Neutrophils # (Auto) 13.4 x10^3/uL (1.8-7.7) Lymphocytes # (Auto) 3.9 x10^3/uL (1.0-4.8) Monocytes # (Auto) 1.0 x10^3/uL (0.0-1.1) Eosinophils # (Auto) 1.1 x10^3/uL (0.0-0.7) Basophils # (Auto) 0.1 x10^3/uL (0.0-0.2) Sodium Level 141 mmol/L (136-145) Potassium Level 4.1 mmol/L (3.5-5.1) Chloride Level 104 mmol/L (98-107) Carbon Dioxide Level 29 mmol/L (21-32) Anion Gap 8 (6-14) Blood Urea Nitrogen 13 mg/dL (7-20) Creatinine 0.7 mg/dL (0.6-1.0) Estimated GFR (Cockcroft-Gault) 89.7 BUN/Creatinine Ratio 19 (6-20) Glucose Level 144 mg/dL (70-99) Calcium Level 10.5 mg/dL (8.5-10.1) Phosphorus Level 2.6 mg/dL (2.6-4.7) Total Bilirubin 0.1 mg/dL (0.2-1.0) Aspartate Amino Transf (AST/SGOT) 5 U/L (15-37) Alanine Aminotransferase (ALT/SGPT) 10 U/L (14-59) Alkaline Phosphatase 125 U/L (46-116) Total Protein 6.8 g/dL (6.4-8.2) Albumin 3.0 g/dL (3.4-5.0) Albumin/Globulin Ratio 0.8 (1.0-1.7) Brief Hospital Course Ms Pal is a 47yo F w/ PMHx renal stones, depression, fibromyalgia, hyperlipidemia, bulging disk, cervical cancer, vitamin D deficiency, chronic pain, 2ppd smoker since age 17, and asthma with COPD who is admitted for shortness of breath and pleuritic chest tightness. Patient states 12/16 at night she started having sharp chest pain that went across her chest bilaterally and was worse with cough. Patient states she continues has chest tightness and shortness of breath. Patient states she feels that the shortness of breath has increased the chest tightness has increased. Patient states she's been using the inhaler but is not working. Patient states she was only able to smoke 3 cigarettes 12/16 One week ago she had marked increase in her shortness of breath. She had fever up to 102. She had a nonproductive cough. She came to the [facility] Emergency Room earlier this week and was given azithromycin and prednisone along with her albuterol inhaler. She was given azithromycin of which 12/17 will be Day 5 and prednisone of which 12/16 was the last day. She states she only took 2 tablets of the prednisone 12/16. Seen by pulmonology in consultation. She continued to worsen and returned and was admitted for further care. Given prednisone, nebulized albuterol plus ipratropium, and one dose of doxycycline. She notes that she is feeling significantly better since admission. Today off O2 and feeling much better, wishes for a chantix script and nebulizer at home and pulm f/u outpatient, arranged. Problem list Acute asthma exacerbation with COPD Obesity Smoker HTN Depression with anxiety HLD Vitamin D deficiency Fibromyalgia/Chronic pain Greater than 30 minutes spent on d/c Discharge Information Condition at Discharge: Improved Follow Up: Weeks (1) Disposition/Orders: D/C to Home Scheduled Albuterol Sulfate (Albuterol Sulfate Neb Soln) 0.63 Mg/3 Ml Vial.neb, 1 VIAL NEB QID for asthma/copd for 30 Days, #120 Ref 5 Please dispense nebulizer #1 and tubing equipment Prescribed by: BRONSON LOPEZ MD on 12/18/18 1045 Amitriptyline Hcl (Amitriptyline Hcl) 25 Mg Tablet, 1 TAB PO QHS for nerve pain, #30 Ref 5 (Reported) Entered as Reported by: VENKATA YEH on 12/17/18140 Last Action: Continued on 12/17/18150 by VENKATA HER Budesonide/Formoterol Fumarate (Symbicort 80-4.5 Mcg Inhaler) 10.2 Gm Hfa.aer.ad, 2 PUFF IH BID for Asthma/COPD for 30 Days, #10.2 Ref 5 Prescribed by: BRONSON LOPEZ MD on 12/18/18 1045 Cyclobenzaprine Hcl (Cyclobenzaprine Hcl) 10 Mg Tablet, 1 TAB PO TID for pain, #90 (Reported) Entered as Reported by: VENKATA YEH on 12/17/18132 Last Action: Continued on 12/17/18150 by VENKATA HER Duloxetine Hcl (Cymbalta) 60 Mg Capsule.dr, 1 CAP PO DAILY, #90 Ref 3 (Reported) Entered as Reported by: ARIANNA ROSARIO on 11/16/17 1244 Last Action: Converted on 12/17/18150 by VENKATA HER Gabapentin (Gabapentin) 600 Mg Tablet, 300 MG PO TID for NEUROGENIC PAIN, (Reported) Entered as Reported by: VENKATA YEH on 12/17/18140 Last Action: Converted on 12/17/18150 by VENKATA HER Ibuprofen (Ibuprofen) 800 Mg Tablet, 800 MG PO TID for pain, (Reported) Entered as Reported by: VENKATA YEH on 12/17/18 0120 Last Action: Converted on 12/17/18150 by VENKATA HER Lovastatin (Lovastatin) 20 Mg Tablet, 1 TAB PO DAILY, #30 Ref 5 (Reported) Entered as Reported by: WHITLEY DIOMEDES on 11/12/17 1649 Last Action: Converted on 12/17/18150 by VENKATA HER Metoclopramide Hcl (Reglan) 10 Mg Tablet, 10 MG PO QIDACHS, #30 Ref 0 Prescribed by: JERED CABA DO on 05/10/18 0426 Metoprolol Tartrate (Metoprolol Tartrate) 25 Mg Tablet, 1 TAB PO BID, #180 Ref 1 (Reported) Entered as Reported by: LEXIE GALLEGO on 03/28/14 1540 Last Action: Continued on 12/17/18150 by VENKATA HER Montelukast Sodium (Montelukast Sodium Tablet ) 10 Mg Tablet, 10 MG PO HS for FOR ASTHMA for 30 Days, #30 Ref 5 Prescribed by: BRONSON LOPEZ MD on 12/18/18 1045 Ondansetron (Ondansetron Odt) 4 Mg Tab.rapdis, 1 TAB PO PRN Q6-8HRS for VOMITING, #14 Prescribed by: SHONDA MONTILLA D.O. on 03/08/18 1005 Prednisone (Prednisone) 20 Mg Tablet, 1 TAB PO DAILY for COPD for 5 Days, #5 Prescribed by: BRONSON LOPEZ MD on 12/18/18 1045 Varenicline Tartrate (Chantix) 0.5 Mg Tablet, 0.5 MG PO DIRECTED for Smoking cessation for 30 Days, #42 Ref 2 0.5 MG PO DAILY X3 DAY, 0.5 MG PO BID X4 DAY, 1 MG PO BID UNTIL END OF TREATMENT For refills x2 disp #60 of 1mg tabs Prescribed by: BRONSON LOPEZ MD on 12/18/18 1045 Scheduled PRN Albuterol Sulfate (Proair Hfa Inhaler) 8.5 Gm Hfa.aer.ad, 1 PUFF INH PRN Q6HRS PRN for SHORTNESS OF BREATH, #1 Ref 0 Prescribed by: RUPA WILKINS PA-C on 03/07/17 0818 Albuterol Sulfate (Proair Hfa Inhaler) 8.5 Gm Hfa.aer.ad, 1 PUFF INH PRN Q6HRS PRN for WHEEZING, #1 Ref 0 Prescribed by: SHONDA MONTILLA D.O. on 12/13/18 0154 Tramadol Hcl (Tramadol Hcl) 50 Mg Tablet, 50 MG PO BID PRN for PAIN, Ref 0 (Reported) Entered as Reported by: VENKATA YEH on 12/16/182210 Last Action: Continued on 12/17/18150 by VENKATA HER Discontinued Medications Cholecalciferol (Vitamin D3) (Vitamin D3) 5,000 Unit Tab.rapdis, 15,000 UNIT PO QWEEKLY, (Reported) Entered as Reported by: WHITLEY HERCULES on 11/12/17 1648 Last Action: Discontinued on 12/16/182206 by BRONSON RICHMOND MD Dec 18, 2018 10:49
--- NOTE | 2018-12-18 12:03 | NUR ---
pt was discharged home with scripts and self care. she was walked out to the main entrance. Samson Rowland RN
[2018-12-19 00:08] LABS: CALCIUM PTH 10.2 mg/dL (8.7-10.2); CREATININE PTH 0.62 mg/dL (0.57-1.00); PHOSPHORUS PTH 2.4 mg/dL (2.5-4.5); PTH INTACT 82 pg/mL (15-65)
== END 2018-12-18 12:04 | disposition home or self-care (01) | DRG 190 ==
LOC: ER 17:41 → 6 SOUTH 19:28
PROVIDERS: ADMIT Internal Medicine; ATTEND Internal Medicine
DX: J44.1 Chronic obstructive pulmonary disease with (acute) exacerbation (principal); J96.01 Acute respiratory failure with hypoxia; J45.901 Unspecified asthma with (acute) exacerbation; I10 Essential (primary) hypertension; F17.210 Nicotine dependence, cigarettes, uncomplicated; F32.9 Major depressive disorder, single episode, unspecified; M79.7 Fibromyalgia; E78.5 Hyperlipidemia, unspecified; E55.9 Vitamin D deficiency, unspecified; G89.29 Other chronic pain; E66.01 Morbid (severe) obesity due to excess calories; F41.8 Other specified anxiety disorders; E66.9 Obesity, unspecified; Z85.41 Personal history of malignant neoplasm of cervix uteri; Z88.2 Allergy status to sulfonamides; Z79.899 Other long term (current) drug therapy; Z80.1 Family history of malignant neoplasm of trachea, bronchus and lung; Z82.49 Family history of ischemic heart disease and other diseases of the circulatory system; Z82.5 Family history of asthma and other chronic lower respiratory diseases; Z87.09 Personal history of other diseases of the respiratory system; Z68.36 Body mass index [BMI] 36.0-36.9, adult
CPT/HCPCS: 36415; 36600; 71046; 80053; 82306; 82805; 83605; 83880; 83970; 84100; 84484; 85007; 85025; 87040; 90471; 90686; 93005; 94640; 94760; 96365; J1650; J2405; J3010; J3490; J7030; J7512; J7613; J7620; 99285-25; G0378

== ENCOUNTER 2019-02-06 05:53 | Emergency (ER) | payer MEDICAID ==
[~2019-02-06] VITALS: Ht 165.1 cm; Wt 95.3 kg
[~2019-02-06 05:53] MED LIST changes: +ALBU0.63 NEB; +AMIT25TA PO; +BUDE10.22 IH; +GABA600T7 PO; +MONT10TA49 PO; +TRAM50TA PO; +VARE0.5T PO
--- NOTE | 2019-02-06 06:16 | PHYS DOC ---
Past Medical History Past Medical History: COPD, Fibromyalgia, Hypertension, Migraines Additional Past Medical Histor: ovarian cysts, kidney stones, parathyroid tumor, incontenence, cervical CA, Past Surgical History: Other Additional Past Surgical Histo: lithotripsy, renal stents Alcohol Use: None Drug Use: None Adult General Chief Complaint Chief Complaint: FLANK PAIN HPI HPI Patient is a 48-year-old female, who presents to the emergency department for evaluation. She states she has been having diffuse lower back pain, somewhat more prominent on the right, for the past several days and the pain feels similar to pain she has had in the past with kidney stones. She states that she did develop some hematuria over the past 24 hours. She has had some nausea but no vomiting, denies diarrhea. Her LMP was about 2 weeks ago. She has not had any fevers or chills. She last had an episode of kidney stones about 2 months ago, which was treated with a stent at , and the stent has since been removed. There are no alleviating or exacerbating factors to her symptoms. Review of Systems Review of Systems Constitutional: Denies fever or chills [] Eyes: Denies change in visual acuity, redness, or eye pain [] HENT: Denies nasal congestion or sore throat [] Respiratory: Denies cough or shortness of breath [] Cardiovascular:The patient denies any shortness of breath, chest pain, palpitations, or orthopnea [] GI: Denies abdominal pain, vomiting, bloody stools or diarrhea [] : Denies dysuria or urinary frequency or hesitancy.[] Musculoskeletal: Denies neck or upper back pain or joint pain. Reports lower back pain. [] Integument: Denies rash or skin lesions [] Neurologic: Denies headache, focal weakness or sensory changes [] Endocrine: Denies polyuria or polydipsia [] All other systems were reviewed and found to be within normal limits, except as documented in this note. Current Medications Current Medications Current Medications Medications (Trade) Dose Ordered Sig/Charlotte Start Time Stop Time Status Last Admin Dose Admin Ketorolac Tromethamine (Toradol 30mg Vial) 30 mg 1X ONCE 02/06/19 06:30 02/06/19 06:31 DC 02/06/19 06:22 30 MG Ondansetron HCl (Zofran) 4 mg 1X ONCE 02/06/19 07:00 02/06/19 07:01 DC 02/06/19 06:41 4 MG Sodium Chloride 1,000 ml @ 1,000 mls/hr Q1H 02/06/19 06:30 02/06/19 07:29 02/06/19 06:22 1,000 MLS/HR Allergies Allergies Allergies Coded Allergies Type Severity Reaction Last Updated Verified Sulfa (Sulfonamide Antibiotics) Allergy Intermediate 01/26/18 Yes Physical Exam Physical Exam PHYSICAL EXAM: CONSTITUTIONAL: Well developed, well nourished HEAD: normocephalic, atraumatic EENT: PERRL, EOMI. Conjunctivae normal color, sclerae non-icteric; moist mucous membranes. NECK: Supple, non-tender; no meningismus. LUNGS: Lungs CTA, breathing even and unlabored. Normal air movement. HEART: Regular rate and rhythm, no murmur CHEST: No deformity; non-tender ABDOMEN: The abdomen is soft, and non-tender, no masses or bruits. EXTREM: Normal ROM; no deformity, no calf tenderness. Normal pulses palpable in all extremities. There is no pedal edema. SKIN: No rash; no diaphoresis NEURO: Alert; normal speech and cognition; CN's grossly intact; strength grossly intact without focal deficit. BACK: There is mild bilateral CVA TTP, along with diffuse lower back tenderness to palpation. Current Patient Data Vital Signs Vital Signs Date Time Temp Pulse Resp B/P (MAP) Pulse Ox O2 Delivery O2 Flow Rate FiO2 02/06/19 05:55 98.4 70 16 171/84 (113) 97 Room Air 98.4 Lab Values Laboratory Tests Test 02/06/19 06:00 02/06/19 06:14 Urine Collection Type Unknown Urine Color Yellow Urine Clarity Clear Urine pH 6.5 Urine Specific [place] 1.020 Urine Protein Negative mg/dL (NEG-TRACE) Urine Glucose (UA) Negative mg/dL (NEG) Urine Ketones (Stick) Negative mg/dL (NEG) Urine Blood Negative (NEG) Urine Nitrite Negative (NEG) Urine Bilirubin Negative (NEG) Urine Urobilinogen Dipstick 1.0 mg/dL (0.2 mg/dL) Urine Leukocyte Esterase Negative (NEG) Urine RBC 1-2 /HPF (0-2) Urine WBC 1-4 /HPF (0-4) Urine Squamous Epithelial Cells Mod /LPF Urine Bacteria Few /HPF (0-FEW) Urine Mucus Marked /LPF Urine Test Negative (NEG) White Blood Count 8.2 x10^3/uL (4.0-11.0) Red Blood Count 4.44 x10^6/uL (3.50-5.40) Hemoglobin 11.5 g/dL (12.0-15.5) L Hematocrit 35.2 % (36.0-47.0) L Mean Corpuscular Volume 79 fL (79-100) Mean Corpuscular Hemoglobin 26 pg (25-35) Mean Corpuscular Hemoglobin Concent 33 g/dL (31-37) Red Cell Distribution Width 15.8 % (11.5-14.5) H Platelet Count 408 x10^3/uL (140-400) H Neutrophils (%) (Auto) 39 % (31-73) Lymphocytes (%) (Auto) 44 % (24-48) Monocytes (%) (Auto) 11 % (0-9) H Eosinophils (%) (Auto) 5 % (0-3) H Basophils (%) (Auto) 2 % (0-3) Neutrophils # (Auto) 3.2 x10^3/uL (1.8-7.7) Lymphocytes # (Auto) 3.6 x10^3/uL (1.0-4.8) Monocytes # (Auto) 0.9 x10^3/uL (0.0-1.1) Eosinophils # (Auto) 0.4 x10^3/uL (0.0-0.7) Basophils # (Auto) 0.1 x10^3/uL (0.0-0.2) Sodium Level 140 mmol/L (136-145) Potassium Level 4.1 mmol/L (3.5-5.1) Chloride Level 105 mmol/L (98-107) Carbon Dioxide Level 27 mmol/L (21-32) Anion Gap 8 (6-14) Blood Urea Nitrogen 12 mg/dL (7-20) Creatinine 0.7 mg/dL (0.6-1.0) Estimated GFR (Cockcroft-Gault) 89.3 BUN/Creatinine Ratio 17 (6-20) Glucose Level 104 mg/dL (70-99) H Calcium Level 8.5 mg/dL (8.5-10.1) Total Bilirubin 0.2 mg/dL (0.2-1.0) Aspartate Amino Transferase (AST) 15 U/L (15-37) Alanine Aminotransferase (ALT) 11 U/L (14-59) L Alkaline Phosphatase 102 U/L (46-116) Total Protein 7.1 g/dL (6.4-8.2) Albumin 3.5 g/dL (3.4-5.0) Albumin/Globulin Ratio 1.0 (1.0-1.7) Laboratory Tests 02/06/19 06:14 Laboratory Tests 02/06/19 06:14 EKG EKG [] Radiology/Procedures Radiology/Procedures PROCEDURE: CT ABDOMEN PELVIS WO CONTRAST CT ABDOMEN PELVIS WO CONTRAST INDICATION: Bilateral flank pain, greater on the right EXAM: Noncontrast CT of the abdomen and pelvis. Coronal and sagittal reformatted images were performed. PQRS compliance statement: One or more of the following individualized dose reduction techniques were utilized for this examination: 1. Automated exposure control 2. Adjustment of the mA and/or kV according to patient size 3. Use of iterative reconstruction technique COMPARISON: 01/26/2018 FINDINGS: No free air, free fluid, or fluid collection. Lower chest: The visualized lower lungs are aerated. No pleural or pericardial effusion. ABDOMEN: Liver: The noncontrast liver is homogeneous in attenuation. Gallbladder and biliary: Normal gallbladder without radiopaque stone. Normal caliber bile ducts. Spleen: Normal spleen. Pancreas: The noncontrast pancreas is homogeneous in attenuation without peripancreatic inflammatory changes. Adrenal glands: Normal adrenal glands. Kidneys and ureters: Few punctate bilateral nonobstructive renal calculi measuring 1 to 2 mm. No hydronephrosis. GI tract: The stomach is decompressed and poorly evaluated. Normal caliber small bowel and colon. Normal appendix. Vascular structures: Normal caliber abdominal aorta. Lymph nodes: No lymphadenopathy in the abdomen or pelvis. PELVIS: Genitourinary system: Bladder is decompressed and poorly evaluated. Normal uterus and ovaries. SKELETAL STRUCTURES AND SOFT TISSUES: No fracture or destructive lesion in the visualized skeleton. IMPRESSION: There are a few 1-2 mm nonobstructive bilateral renal calculi. There is no hydronephrosis. [] Course & Med Decision Making Course & Med Decision Making Pertinent Labs and Imaging studies reviewed. (See chart for details) []7:25 AM:Patient remains stable. I discussed test results, the need for close follow-up, and return precautions. Dragon Disclaimer Dragon Disclaimer This electronic medical record was generated, in whole or in part, using a voice recognition dictation system. Departure Departure Impression: Primary Impression: Back pain Additional Impression: Bilateral flank pain Disposition: 01 HOME, SELF-CARE Condition: STABLE Referrals: MIA FULLER APRN (PCP) Patient Instructions: Back Pain, Adult, Flank Pain Additional Instructions: Applying a heating pad to the affected area may help improve your symptoms. The prescribed medications may cause drowsiness-use caution while taking. Scripts Diclofenac Sodium (DICLOFENAC SODIUM) 50 Mg Tablet.dr 1 TAB PO BID, #20 TAB 0 Refills Prov: SUSANNE RICKETTS MD 02/06/19 Cyclobenzaprine Hcl (CYCLOBENZAPRINE HCL) 10 Mg Tablet 1 TAB PO TID PRN for PAIN, #30 TAB Prov: SUSANNE RICKETTS MD 02/06/19 Problem Qualifiers SUSANNE RICKETTS MD Feb 06, 2019 06:16
[2019-02-06 06:25] LABS: BASO # 0.1 x10^3/uL (0.0-0.2); BASO % 2 % (0-3); EOS # 0.4 x10^3/uL (0.0-0.7); EOS % 5 % (0-3); HEMATOCRIT 35.2 % (36.0-47.0); HEMOGLOBIN 11.5 g/dL (12.0-15.5); LYMPH # 3.6 x10^3/uL (1.0-4.8); LYMPH % 44 % (24-48); MEAN CORPUSCULAR HEMOGLOBIN 26 pg (25-35); MEAN CORPUSCULAR HGB CONC 33 g/dL (31-37); MEAN CORPUSCULAR VOLUME 79 fL (79-100); MONO # 0.9 x10^3/uL (0.0-1.1); MONO % 11 % (0-9); NEUT # 3.2 x10^3/uL (1.8-7.7); NEUT % 39 % (31-73); PLATELET COUNT 408 x10^3/uL (140-400); RED BLOOD COUNT 4.44 x10^6/uL (3.50-5.40); RED CELL DISTRIBUTION WIDTH 15.8 % (11.5-14.5); WHITE BLOOD COUNT 8.2 x10^3/uL (4.0-11.0)
[2019-02-06 06:29] LABS: BILIRUBIN,URINE NEGATIVE (NEG); CLARITY,URINE CLEAR; COLOR,URINE YELLOW; NITRITE,URINE NEGATIVE (NEG); PH,URINE 6.5; PROTEIN,URINE NEGATIVE (NEG-TRACE)
[2019-02-06] MEDS ORDERED: KETOROLAC 30 MG/ML VIAL. IV ONE (06:30)
[2019-02-06] MEDS ORDERED: IV NORMAL SALINE 1000ML BAG 1,000 ML IV SCH (06:30)
[2019-02-06 06:32] LABS: CALCIUM 8.5 mg/dL (8.5-10.1); CREATININE 0.7 mg/dL (0.6-1.0); GFR 89.3; POTASSIUM 4.1 mmol/L (3.5-5.1)
[2019-02-06 06:32] LABS: U PREG PATIENT NEGATIVE (NEG)
[2019-02-06 06:37] LABS: ALBUMIN 3.5 g/dL (3.4-5.0); TOTAL BILIRUBIN 0.2 mg/dL (0.2-1.0); TOTAL PROTEIN 7.1 g/dL (6.4-8.2)
[2019-02-06 06:42] LABS: BACTERIA,URINE FEW /HPF (0-FEW); SQUAMOUS EPITHELIAL CELL,UR MOD /LPF
[2019-02-06] MEDS ORDERED: ONDANSETRON PF 4 MG/2 ML VIAL. IM ONE (07:00)
[2019-02-06] MEDS ORDERED: ONDANSETRON PF 4 MG/2 ML VIAL. IV ONE (07:00)
--- NOTE | 2019-02-06 07:14 | RAD ---
CT ABDOMEN PELVIS WO CONTRAST INDICATION: Bilateral flank pain, greater on the right EXAM: Noncontrast CT of the abdomen and pelvis. Coronal and sagittal reformatted images were performed. PQRS compliance statement: One or more of the following individualized dose reduction techniques were utilized for this examination: 1. Automated exposure control 2. Adjustment of the mA and/or kV according to patient size 3. Use of iterative reconstruction technique COMPARISON: 01/26/2018 FINDINGS: No free air, free fluid, or fluid collection. Lower chest: The visualized lower lungs are aerated. No pleural or pericardial effusion. ABDOMEN: Liver: The noncontrast liver is homogeneous in attenuation. Gallbladder and biliary: Normal gallbladder without radiopaque stone. Normal caliber bile ducts. Spleen: Normal spleen. Pancreas: The noncontrast pancreas is homogeneous in attenuation without peripancreatic inflammatory changes. Adrenal glands: Normal adrenal glands. Kidneys and ureters: Few punctate bilateral nonobstructive renal calculi measuring 1 to 2 mm. No hydronephrosis. GI tract: The stomach is decompressed and poorly evaluated. Normal caliber small bowel and colon. Normal appendix. Vascular structures: Normal caliber abdominal aorta. Lymph nodes: No lymphadenopathy in the abdomen or pelvis. PELVIS: Genitourinary system: Bladder is decompressed and poorly evaluated. Normal uterus and ovaries. SKELETAL STRUCTURES AND SOFT TISSUES: No fracture or destructive lesion in the visualized skeleton. IMPRESSION: There are a few 1-2 mm nonobstructive bilateral renal calculi. There is no hydronephrosis. Electronically signed by: Hasmukh Woodward MD (02/06/2019 7:11 AM) [facility]
[2019-02-06] MEDS ORDERED: DICL50TA4 PO (07:27)
[2019-02-06] MEDS ORDERED: CYCL10TA2 PO (07:27)
[2019-02-06 07:33] VITALS: BP 172/93
== END 2019-02-06 07:50 | disposition home or self-care (01) ==
LOC: ER 05:53
DX: M54.5 Low back pain (principal); R10.9 Unspecified abdominal pain; N20.0 Calculus of kidney; J44.9 Chronic obstructive pulmonary disease, unspecified; M79.7 Fibromyalgia; I10 Essential (primary) hypertension; G43.909 Migraine, unspecified, not intractable, without status migrainosus; Z87.442 Personal history of urinary calculi; Z88.2 Allergy status to sulfonamides
CPT/HCPCS: 36415; 74176; 80053; 81001; 81025; 85025; 96374; 96375; 99285; J1885; J2405; J7030

== ENCOUNTER 2019-05-16 12:15 | Emergency (ER) | payer MEDICAID ==
[~2019-05-16] VITALS: Ht 165.1 cm; Wt 101.2 kg
[~2019-05-16 12:15] MED LIST changes: +DICL50TA4 PO
[2019-05-16 12:32] VITALS: BP 161/75
--- NOTE | 2019-05-16 13:14 | PHYS DOC ---
Past Medical History Past Medical History: COPD, Fibromyalgia, Hypertension, Migraines Additional Past Medical Histor: ovarian cysts, kidney stones, parathyroid tumor, incontenence, cervical CA, (MARIPOSA GAINES APRN) Past Surgical History: Other Additional Past Surgical Histo: lithotripsy, renal stents (MARIPOSA GAINES APRN) Smoking Status: Current Every Day Smoker Alcohol Use: None Drug Use: None (MARIPOSA GAINES APRN) Adult General Chief Complaint Chief Complaint: DIZZY/LIGHT HEADED HPI HPI Patient is a 48 year old female with history of fibromyalgia, depression, COPD, hypertension, who presents to the ED today with multiple complaints. Patient is complaining of chronic fibromyalgia pain throughout her body. She states she is on tramadol, gabapentin, and Cymbalta, she has not taken her medicines for 1-3 weeks because she ran out. She reports being unable to see her PCP because she is not in the office today. Patient is also complaining of having fallen down at unknown date. She states sh e noted a bruise on the forehead. She doesn't know when she noted the bruise. She doesn't know when she fell down. She is also complaining of lower extremity swelling. 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 She believes she is gaining more weight/retaining fluid. Reports being seen at [facility] a few days ago for the same co mplaints and they did not fill her rx. (MARIPOSA GAINES APRN) Review of Systems Review of Systems Constitutional: Denies fever or chills [] Eyes: Denies change in visual acuity, redness, or eye pain [] HENT: Denies nasal congestion or sore throat [] Respiratory: Denies cough or shortness of breath [] Cardiovascular: Reports weight gain, lower extremity swelling GI: Denies abdominal pain, nausea, vomiting, bloody stools or diarrhea [] : Denies dysuria or hematuria [] Musculoskeletal: Reports chronic pain throughout her body. Integument: Denies rash or skin lesions [] Neurologic: Reports possible falling/hitting her head. Denies headache, focal weakness or sensory changes [] All other systems were reviewed and found to be within normal limits, except as documented in this note. (MARIPOSA GAINES APRN) Allergies Allergies Allergies Coded Allergies Type Severity Reaction Last Updated Verified Sulfa (Sulfonamide Antibiotics) Allergy Intermediate 01/26/18 Yes (SHONDA MONTILLA DO) Physical Exam Physical Exam Constitutional: Well developed, well nourished, no acute distress, non-toxic appearance. [] HENT: Normocephalic, atraumatic, bilateral external ears normal, oropharynx moist, no oral exudates, nose normal. [] Eyes: PERRLA, EOMI, conjunctiva normal, no discharge. [] Neck: Normal range of motion, no tenderness, supple, no stridor. [] Cardiovascular:Heart rate regular rhythm, no murmur [] Lungs & Thorax: Bilateral breath sounds clear to auscultation [] Abdomen: Bowel sounds normal, soft, no tenderness, no masses, no pulsatile masses. [] Skin: Warm, dry, no erythema, no rash. [] Back: No tenderness, no CVA tenderness. [] Extremities: No tenderness, no cyanosis, no clubbing, ROM intact, +1 edema. [] Neurologic: Old bruise noted on the right forehead. Alert and oriented X 3, normal motor function, normal sensory function, no focal deficits noted. Cranial nerves II through XII intact Psychologic: Patient has a flat affect, appears depressed and is very tearful (MARIPOSA GAINES APRN) Current Patient Data Vital Signs Vital Signs Date Time Temp Pulse Resp B/P (MAP) Pulse Ox O2 Delivery O2 Flow Rate FiO2 05/16/19 12:32 98.0 82 18 161/75 (103) 97 Room Air 98.0 (SHONDA MONTILLA DO) EKG EKG [] (MARIPOSA GAINES APRN) Radiology/Procedures Radiology/Procedures [] (MARIPOSA GAINES APRN) Course & Med Decision Making Course & Med Decision Making Pertinent Labs and Imaging studies reviewed. (See chart for details) This is a 48-year-old female patient presenting to the ED today with multiple complaints. Patient is complaining of chronic fibromyalgia and running out of gabapentin, tramadol. Cymbalta. Informed patient I will not fill this prescriptions. Requested she follows up with her own PCP for refills. She is also complaining of either falling or hitting her forehead at unknown date. She is also complaining of lower extremity swelling and possible fluid retention. Patient decided she will not continue to be in the ED and eloped (MARIPOSA GAINES APRN) [place] Disclaimer Dragon Disclaimer This electronic medical record was generated, in whole or in part, using a voice recognition dictation system. (MARIPOSA GAINES APRN) Departure Departure Impression: Primary Impression: Chronic pain Disposition: 07 AGAINST MEDICAL ADVICE Condition: STABLE Referrals: MIA FULLER APRN (PCP) Attending Signature Attending Signature I have reviewed the PA/TELE [employer]OUT SEW[employer] LINE REPAIRER's note and plan of care. I was available for consultation as needed during the patient's visit in the emergency department. I agree with the clinical impression, plan, and disposition. (SHONDA MONTILLA DO) Problem Qualifiers Primary Impression: Chronic pain Chronic pain type: other chronic pain Qualified Codes: G89.29 - Other chronic pain MARIPOSA GAINES APRN May 16, 2019 13:14 SHONDA MONTILLA DO May 17, 2019 21:47
== END 2019-05-16 13:00 | disposition left against medical advice (07) ==
LOC: ER 12:15
DX: G89.29 Other chronic pain (principal); R22.40 Localized swelling, mass and lump, unspecified lower limb; I10 Essential (primary) hypertension; J44.9 Chronic obstructive pulmonary disease, unspecified; M79.7 Fibromyalgia; G43.909 Migraine, unspecified, not intractable, without status migrainosus; F17.200 Nicotine dependence, unspecified, uncomplicated; Z96.0 Presence of urogenital implants; Z87.442 Personal history of urinary calculi; Z88.2 Allergy status to sulfonamides
CPT/HCPCS: 99281

== ENCOUNTER 2019-11-30 02:21 | Emergency (ER) | payer MEDICAID ==
[~2019-11-30] VITALS: Ht 165.1 cm; Wt 100.0 kg
[2019-11-30 03:15] VITALS: BP 148/67
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
== END 2019-11-30 03:34 | disposition home or self-care (01) ==
LOC: ER 02:21
DX: F41.8 Other specified anxiety disorders (principal); R60.0 Localized edema; J44.9 Chronic obstructive pulmonary disease, unspecified; M79.7 Fibromyalgia; I10 Essential (primary) hypertension; G43.909 Migraine, unspecified, not intractable, without status migrainosus; F17.200 Nicotine dependence, unspecified, uncomplicated; Z87.442 Personal history of urinary calculi; Z98.890 Other specified postprocedural states; Z85.89 Personal history of malignant neoplasm of other organs and systems; Z88.2 Allergy status to sulfonamides
CPT/HCPCS: 99281